=== PATIENT | male | born 1970 | race African-American/Black ===

== ENCOUNTER 2018-03-16 09:44 | Inpatient (IN) | payer OTHER ==
--- NOTE | 2018-03-16 10:36 | PDOC ---
History of Present Illness - General Chief Complaint: Edema Stated Complaint: PCP SENT FOR ADMIN Time Seen by Provider: 03/16/18 09:59 History Source: Patient Exam Limitations: No Limitations - History of Present Illness Initial Comments: 03/16/18 10:45 47 year old male presents the emergency room with complaints of 7 days of lower extremity edema mild generalized weakness, and sent here from Dr. Cantu's office for admission. Patient states history of diabetes, hypertension gastric sleeve 7 years ago, daily alcohol use, and liver disease. Patient was placed on Lasix by his primary care physician but since it did not improve patient was also recently seen by certified wellness program coordinator who did an echo and associated swelling with his liver disease. Timing/Duration: getting worse Severity: moderate Associated Symptoms: reports: weakness, other Past History - Travel Traveled outside of the country in the last 30 days: No - Past Medical History Allergies/Adverse Reactions: Allergies Allergy/AdvReac Type Severity Reaction Status Date / Time Penicillins Allergy Verified 03/16/18 09:46 Home Medications: Ambulatory Orders Enalapril Maleate [Vasotec] 40 mg PO DAILY 03/16/18 Furosemide [Lasix] 40 mg PO DAILY 03/16/18 COPD: No - Immunization History Immunization Up to Date: Yes - Suicide/Smoking/Psychosocial Hx Smoking History: Never smoked Information on smoking cessation initiated: No Hx Alcohol Use: No Drug/Substance Use Hx: No Substance Use Type: None Patient Lives Alone: No Lives with/in: spouse/SO Review of Systems - Review of Systems Able to Perform ROS?: Yes Constitutional: Yes: Weakness HEENTM: No: Symptoms Reported Respiratory: No: Symptoms reported Cardiac (ROS): Yes: Edema ABD/GI: No: Symptoms Reported : No: Symptoms Reported Musculoskeletal: No: Symptoms Reported Integumentary: No: Symptoms Reported Neurological: No: Symptoms reported Endocrine: No: Symptoms Reported Hematologic/Lymphatic: Yes: Anemia *Physical Exam - Vital Signs Last Vital Signs Temp Pulse Resp BP Pulse Ox 98.3 F 84 16 150/69 100 03/16/18 09:47 03/16/18 09:47 03/16/18 09:47 03/16/18 09:47 03/16/18 09:47 - Physical Exam General Appearance: Yes: Nourished, Appropriately Dressed. No: Apparent Distress HEENT: positive: Scleral Icterus (R), Scleral Icterus (L) Neck: positive: Supple Respiratory/Chest: positive: Lungs Clear, Normal Breath Sounds. negative: Respiratory Distress, Accessory Muscle Use Cardiovascular: positive: Regular Rhythm, Regular Rate. negative: Murmur Gastrointestinal/Abdominal: positive: Normal Bowel Sounds (muffled), Soft, Distended. negative: Guarding, Rebound, Tenderness, Hernia, Mass Extremity: positive: Normal Capillary Refill, Normal Range of Motion, Swelling ( 3+ pitting bilaterally from patellas to toes) Integumentary: positive: Normal Color, Warm, Moist Neurologic: positive: Normal Mood/Affect, Motor Strength 09/09 ED Treatment Course - LABORATORY CBC & Chemistry Diagram: 03/16/18 10:45 03/16/18 10:49 - RADIOLOGY Radiology Studies Ordered: Category Date Time Status CHEST X-RAY PORTABLE* [RAD] Stat Radiology 03/16/18 10:09 Ordered Medical Decision Making - Medical Decision Making 03/16/18 10:57 CC: BLE edema and mild weakness, daily etoh Exam: Noted icteric sclera and conjunctivas, # + pitting edema Plan: labs, coag, liver u/s, ua, cxr, ekg, 03/16/18 13:28 Laboratory Tests 03/16/18 03/16/18 03/16/18 10:45 10:49 10:49 WBC 7.3 Hgb 8.4 L Hct 24.6 L Plt Count 67 L MPV 11.7 H Absolute Neuts (auto) 5.2 PT with INR 17.20 H INR 1.45 H Sodium 141 Potassium 3.9 Chloride 108 H Carbon Dioxide 24 Anion Gap 10 BUN 11 Creatinine 1.2 Creat Clearance w eGFR > 60 Random Glucose 131 H Calcium 8.1 L Magnesium 1.9 Total Bilirubin 4.1 H AST 97 H ALT 48 Alkaline Phosphatase 256 H Total Protein 7.1 Albumin 2.2 L Lipase 317 Patient's ultrasound pending. Case discussed with Dr. Alberts admitting physician and states admit to [facility] and consult GI. 03/16/18 15:06 Ultrasound shows a significant hepatomegaly with the liver measuring 24.6 and sagittal length with fatty infiltration versus hepatocellular disease. Adequately distended gallbladder with diffuse thickening of its wall and suggestive edema. No gallstones identified. Clinically correlate and further evaluation is needed to rule out acalculous cholecystitis. *DC/Admit/Observation/Transfer Diagnosis at time of Disposition: Jaundice, Bilateral lower extremity edema - Discharge Dispostion Decision to Admit order: Yes - Referrals Referrals: Aman Cantu MD [Primary Care Provider] - - Patient Instructions - Post Discharge Activity
[2018-03-16 10:57] LABS: BASO % 0.5 % (0-2.0); EOS % 2.3 % (0-4.5); HEMATOCRIT 24.6 % (35.4-49); HEMOGLOBIN 8.4 GM/dL (11.7-16.9); LYMPH % 15.6 % (8-40); MCHC 34.3 g/dl (32.0-35.9); MEAN CELL VOLUME 101.9 fl (80-96); MEAN PLT VOLUME 11.7 fl (7.5-11.1); MONO % 9.8 % (3.8-10.2); NEUT % 71.8 % (42.8-82.8); PLATELET COUNT 67 K/MM3 (134-434); RBC 2.41 M/mm3 (4.00-5.60); RDW 14.5 % (11.9-15.9); WHITE BLOOD COUNT 7.3 K/mm3 (4.0-10.0)
[2018-03-16 11:25] LABS: INR 1.45 (0.83-1.09); PROTHROMBIN TIME (PATIENT) 17.2 SEC (9.7-13.0)
[2018-03-16 11:26] LABS: ALBUMIN 2.2 g/dl (3.4-5.0); ALK PHOS 256 U/L (45-117); ANION GAP 10 MMOL/L (8-16); BILIRUBIN,TOTAL 4.1 mg/dL (0.2-1); BLOOD UREA NITROGEN 11 mg/dL (7-18); CALCIUM 8.1 mg/dL (8.5-10.1); CHLORIDE 108 mmol/L (98-107); CO2 24 mmol/L (21-32); CREATININE 1.2 mg/dL (0.55-1.3); GLUCOSE,RANDOM 131 mg/dL (74-106); MAGNESIUM 1.9 mg/dL (1.8-2.4); POTASSIUM 3.9 mmol/L (3.5-5.1); SGOT/AST 97 U/L (15-37); SGPT/ALT 48 U/L (13-61); SODIUM 141 mmol/L (136-145); TOT PROT 7.1 g/dl (6.4-8.2)
[2018-03-16 13:21] LABS: LIPASE 317 U/L (73-393)
--- NOTE | 2018-03-16 13:38 | EKG ---
Test Reason : Blood Pressure : / mmHG Vent. Rate : 071 BPM Atrial Rate : 071 BPM P-R Int : 158 ms QRS Dur : 096 ms QT Int : 426 ms P-R-T Axes : 041 032 024 degrees QTc Int : 462 ms NORMAL SINUS RHYTHM NORMAL ECG WHEN COMPARED WITH ECG OF 01-FEB-2010 09:02, NO SIGNIFICANT CHANGE WAS FOUND Confirmed by RONNIE LUCIANO MD ([id number]) on 03/16/2018 1:38:19 PM Referred By: Confirmed By:RONNIE LUCIANO MD
[2018-03-16 16:39] LABS: URINE APPEARANCE CLEAR; URINE BILIRUBIN NEGATIVE (<2.0 mg/dL); URINE COLOR DKYELLOW; URINE GLUCOSE (UA) NEGATIVE (NEGATIVE); URINE KETONE NEGATIVE (NEGATIVE); URINE LEUK ESTERASE NEGATIVE (NEGATIVE); URINE NITRITE NEGATIVE (NEGATIVE); URINE PROTEIN NEGATIVE (NEGATIVE); URINE UROBILINOGEN 4.0 E.U/dl mg/dL (0.2-1.0)
[2018-03-16 17:05] VITALS: BMI 35.6
[2018-03-16] MEDS ORDERED: morphine CARPU-JECT 2 MG/1 ML DISP.SYRIN IVPUSH PRN (21:43)
--- NOTE | 2018-03-16 21:57 | CON.CARD ---
Consult Consult Specialty:: Cardiology for dr. Clements - History of Present Illness Chief Complaint: le edema History of Present Illness: 47 year old male presents the emergency room with complaints of 7 days of lower extremity edema mild generalized weakness, and sent here from Dr. Cantu's office for admission. Patient states history of diabetes, hypertension gastric sleeve 7 years ago, daily alcohol use, and liver disease. Patient was placed on Lasix by his primary care physician but since it did not improve patient was also recently seen by signal worker helper who did an echo and associated swelling with his liver disease. Timing/Duration: getting worse Severity: moderate Associated Symptoms: reports: weakness, other - History Source History Provided By: Patient, Medical Record - Past Medical History Cardio/Vascular: Yes: HTN Endocrine: Yes: Diabetes Mellitus - Alcohol/Substance Use Hx Alcohol Use: No - Smoking History Smoking history: Never smoked Home Medications - Allergies Allergies/Adverse Reactions: Allergies Allergy/AdvReac Type Severity Reaction Status Date / Time Penicillins Allergy Verified 03/16/18 09:46 - Home Medications Home Medications: Ambulatory Orders Enalapril Maleate [Vasotec] 40 mg PO DAILY 03/16/18 Furosemide [Lasix] 40 mg PO DAILY 03/16/18 Oxycodone HCl/Acetaminophen [Percocet 10-325 mg Tablet] 10 tab PO PRN 03/16/18 Review of Systems - Review of Systems Constitutional: reports: No Symptoms Eyes: reports: No Symptoms HENT: reports: No Symptoms Neck: reports: No Symptoms Cardiovascular: reports: Edema Respiratory: reports: No Symptoms Gastrointestinal: reports: No Symptoms Genitourinary: reports: No Symptoms Breasts: reports: No Symptoms Reported Musculoskeletal: reports: No Symptoms Integumentary: reports: No Symptoms Neurological: reports: No Symptoms Endocrine: reports: No Symptoms Hematology/Lymphatic: reports: No Symptoms Psychiatric: reports: No Symptoms Vital Signs: Vital Signs Temperature 98.7 F 03/16/18 21:26 Pulse Rate 77 03/16/18 21:26 Respiratory Rate 18 03/16/18 21:26 Blood Pressure 145/77 03/16/18 21:26 O2 Sat by Pulse Oximetry (%) 100 03/16/18 16:55 Constitutional: Yes: Well Nourished, No Distress, Calm Eyes: Yes: WNL, Conjunctiva Clear, EOM Intact HENT: Yes: WNL, Atraumatic, Normocephalic Neck: Yes: WNL, Supple, Trachea Midline Respiratory: Yes: WNL, Regular, CTA Bilaterally Gastrointestinal: Yes: WNL, Normal Bowel Sounds Renal/: Yes: WNL Cardiovascular: Yes: WNL, Regular Rate and Rhythm Musculoskeletal: Yes: WNL Extremities: Yes: WNL Edema: Yes Edema: LLE: 1+, RLE: 1+ Integumentary: Yes: WNL Neurological: Yes: WNL, Alert, Oriented ...Motor Strength: WNL Psychiatric: Yes: WNL, Alert, Oriented - Other Data Labs, Other Data: CBC, BMP 03/16/18 10:45 03/16/18 10:49 INR, PTT INR 1.45 (0.83-1.09) H 03/16/18 10:49 Laboratory Tests 03/16/18 03/16/18 03/16/18 10:45 10:49 10:49 WBC 7.3 RBC 2.41 L Hgb 8.4 L Hct 24.6 L MCV 101.9 H MCH 35.0 H MCHC 34.3 RDW 14.5 Plt Count 67 L MPV 11.7 H Absolute Neuts (auto) 5.2 Neutrophils % 71.8 Lymphocytes % 15.6 Monocytes % 9.8 Eosinophils % 2.3 Basophils % 0.5 Nucleated RBC % 0 PT with INR INR Sodium 141 Potassium 3.9 Chloride 108 H Carbon Dioxide 24 Anion Gap 10 BUN 11 Creatinine 1.2 Creat Clearance w eGFR > 60 Random Glucose 131 H Calcium 8.1 L Magnesium 1.9 Total Bilirubin 4.1 H AST 97 H ALT 48 Alkaline Phosphatase 256 H Total Protein 7.1 Albumin 2.2 L Lipase 317 Urine Color Urine Appearance Urine pH Ur Specific [place] Urine Protein Urine Glucose (UA) Urine Ketones Urine Blood Urine Nitrite Urine Bilirubin Urine Urobilinogen Ur Leukocyte Esterase Blood Type A POSITIVE Antibody Screen Negative 03/16/18 03/16/18 10:49 16:24 WBC RBC Hgb Hct MCV MCH MCHC RDW Plt Count MPV Absolute Neuts (auto) Neutrophils % Lymphocytes % Monocytes % Eosinophils % Basophils % Nucleated RBC % PT with INR 17.20 H INR 1.45 H Sodium Potassium Chloride Carbon Dioxide Anion Gap BUN Creatinine Creat Clearance w eGFR Random Glucose Calcium Magnesium Total Bilirubin AST ALT Alkaline Phosphatase Total Protein Albumin Lipase Urine Color Dkyellow Urine Appearance Clear Urine pH 7.0 Ur Specific [place] 1.016 Urine Protein Negative Urine Glucose (UA) Negative Urine Ketones Negative Urine Blood Negative Urine Nitrite Negative Urine Bilirubin Negative Urine Urobilinogen 4.0 e.u/dl Ur Leukocyte Esterase Negative Blood Type Antibody Screen Imaging - Results Chest X-ray: Image Reviewed (cm increased markings) EKG: Image Reviewed (sr wnl) Problem List - Problems (1) Bilateral lower extremity edema Code(s): R60.0 - LOCALIZED EDEMA (2) Jaundice Code(s): R17 - UNSPECIFIED JAUNDICE Assessment/Plan htn dm edema anemia elevated lfts ?cirhossis s/p gastric bypass surgery Plan bnp records from dr. Clements office - patient had cardiac w/u done as outp. GI eval cont present rx Coverage for dr. Clements
[2018-03-16] MEDS: MORPHINE SULFATE 2 MG/ML VIAL IVPUSH PRN (22:03)
--- NOTE | 2018-03-16 22:39 | HP ---
Admitting History and Physical - Smoking History Smoking history: Never smoked - Alcohol/Substance Use Hx Alcohol Use: No Home Medications - Allergies Allergies/Adverse Reactions: Allergies Allergy/AdvReac Type Severity Reaction Status Date / Time Penicillins Allergy Verified 03/16/18 09:46 - Home Medications Home Medications: Ambulatory Orders Enalapril Maleate [Vasotec] 40 mg PO DAILY 03/16/18 Furosemide [Lasix] 40 mg PO DAILY 03/16/18 Oxycodone HCl/Acetaminophen [Percocet 10-325 mg Tablet] 10 tab PO PRN 03/16/18 Physical Examination Vital Signs: Vital Signs Temperature 98.7 F 03/16/18 21:26 Pulse Rate 77 03/16/18 21:26 Respiratory Rate 18 03/16/18 21:26 Blood Pressure 145/77 03/16/18 21:26 O2 Sat by Pulse Oximetry (%) 100 03/16/18 16:55 Labs: CBC, BMP 03/16/18 10:45 03/16/18 10:49
--- NOTE | 2018-03-17 09:12 | PN ---
Progress Note, Physician History of Present Illness: 47 year old male presents the emergency room with complaints of 7 days of lower extremity edema mild generalized weakness, and sent here from Dr. Cantu's office for admission. Patient states history of diabetes, hypertension gastric sleeve 7 years ago, daily alcohol use, and liver disease. Patient was placed on Lasix by his primary care physician but since it did not improve patient was also recently seen by motorized squad lieutenant who did an echo and associated swelling with his liver disease. Timing/Duration: getting worse Severity: moderate Associated Symptoms: reports: weakness, other - Current Medication List Current Medications: Active Medications Enalapril Maleate (Vasotec -) 40 mg PO DAILY [facility] Furosemide (Lasix Injection -) 40 mg IVPUSH DAILY [facility] Morphine Sulfate (Morphine Sulfate) 2 mg IVPUSH Q6H PRN PRN Reason: pain Last Admin: 03/16/18 22:03 Dose: 2 mg - Objective Vital Signs: Vital Signs Temperature 98.2 F 03/17/18 06:00 Pulse Rate 74 03/17/18 06:00 Respiratory Rate 18 03/17/18 06:00 Blood Pressure 144/74 03/17/18 06:00 O2 Sat by Pulse Oximetry (%) 100 03/16/18 21:00 Eyes: Yes: WNL, Conjunctiva Clear, EOM Intact HENT: Yes: WNL, Atraumatic, Normocephalic Neck: Yes: WNL, Supple, Trachea Midline Cardiovascular: Yes: WNL, Regular Rate and Rhythm Respiratory: Yes: WNL, Regular, CTA Bilaterally Gastrointestinal: Yes: WNL, Normal Bowel Sounds Genitourinary: Yes: WNL Musculoskeletal: Yes: WNL Extremities: Yes: WNL Edema: Yes Integumentary: Yes: WNL Neurological: Yes: WNL, Alert, Oriented ...Motor Strength: WNL Psychiatric: Yes: WNL Labs: INR, PTT INR 1.45 (0.83-1.09) H 03/16/18 10:49 Problem List - Problems (1) Bilateral lower extremity edema Code(s): R60.0 - LOCALIZED EDEMA (2) Jaundice Code(s): R17 - UNSPECIFIED JAUNDICE Assessment/Plan htn dm edema anemia elevated lfts ?cirhossis s/p gastric bypass surgery Plan bnp records from dr. Clements office - patient had cardiac w/u done as outp. GI eval cont present rx Coverage for dr. Clements
[2018-03-17 09:13] LABS: BASO % 1.2 % (0-2.0); EOS % 2.2 % (0-4.5); HEMATOCRIT 25.3 % (35.4-49); HEMOGLOBIN 8.4 GM/dL (11.7-16.9); LYMPH % 21.4 % (8-40); MCH 33.5 pg (25.7-33.7); MCHC 33.1 g/dl (32.0-35.9); NEUT % 65.2 % (42.8-82.8); PLATELET COUNT 60 K/MM3 (134-434); RBC 2.51 M/mm3 (4.00-5.60); RDW 14.5 % (11.9-15.9); WHITE BLOOD COUNT 7.9 K/mm3 (4.0-10.0)
[2018-03-17] MEDS: FUROSEMIDE 40 MG/4 ML INJECTABLE VIAL IVPUSH SCH (09:32)
[2018-03-17] MEDS: ENALAPRIL MALEATE 10 MG TABLET (FP) PO SCH (09:34)
[2018-03-17 09:36] LABS: ALBUMIN 2.1 g/dl (3.4-5.0); ALK PHOS 236 U/L (45-117); ANION GAP 7 MMOL/L (8-16); BILIRUBIN,TOTAL 4.6 mg/dL (0.2-1); BLOOD UREA NITROGEN 10 mg/dL (7-18); CHLORIDE 108 mmol/L (98-107); CO2 25 mmol/L (21-32); CREATININE 1.1 mg/dL (0.55-1.3); GLUCOSE,RANDOM 90 mg/dL (74-106); POTASSIUM 3.8 mmol/L (3.5-5.1); SGOT/AST 83 U/L (15-37); SGPT/ALT 41 U/L (13-61); SODIUM 139 mmol/L (136-145); TOT PROT 6.8 g/dl (6.4-8.2)
[2018-03-17 10:51] LABS: N-TERMINAL BNP 682.8 pg/ml (5-125)
[2018-03-17] MEDS: MORPHINE SULFATE 2 MG/ML VIAL IVPUSH PRN ×2 (11:03→20:55)
--- NOTE | 2018-03-17 12:27 | CON.GI ---
Consult Consult Specialty:: GI: Dr. Coker covering for Dr. Sen Referred by:: Dr. Alberts Reason for Consultation:: Jaundice - History of Present Illness Chief Complaint: My legs were swollen and my eyes have been yellow for the last couple of months History of Present Illness: 47M admitted for evaluation of jaundice x 2 months and LE edema. He was seen by his PMD Dr. Cantu. He had blood work done and given abnormal blood work and lower extremity edema was advised to go to the ER. He denies abdominal pain. He alludes to drinking 5-6 mixed drinks per day and has been doing this for upwards of 8 years. He explains that he was seen in July at [facility] where he underwent surgery for SBO. By description it was secondary to adhesions. During his hospitalization he was seen by the liver team due to "abnormal liver tests". he started following with one of the hepatologists there (by description, Dr. Abimael Goss, Medical Transplant Operating System Programmer). Mr. Hurtado tells me that he was told of inflammation of the liver, however he failed to continue follow-up there. There is no family history of liver disease, he denies any recent travel, any change in bowel habits, IVDA/DU, blood transfusions or known exposure to viral hepatitides. He denies any OTC supplements. he describes taking percocet 1 pill twice per day on a regular basis. He denies any weight loss, however states that his appetite has been diminished as of late. He has never had a colonoscopy. There is no family history of colorectal cancer or other GI malignancy. He explains to me that he was supposed to be following up with Dr. Silverio for evaluation of his liver and to discuss colonoscopy. - History Source History Provided By: Patient, Medical Record - Past Medical History Cardio/Vascular: Yes: HTN Pulmonary: Yes: Asthma Endocrine: Yes: Diabetes Mellitus (States diet controlled: off insulin and oral therapy x 1 year per patient) - Past Surgical History Past Surgical History: Yes: Bariatric Surgery (gastric sleeve (2007 or 2008)) - Alcohol/Substance Use Hx Alcohol Use: Yes (daily as described above) History of Substance Use: reports: None - Smoking History Smoking history: Never smoked - Social History Usual Living Arrangement: With Spouse ADL: Independent Occupation: Unemployed Place of : [facility] History of Recent Travel: No Home Medications - Allergies Allergies/Adverse Reactions: Allergies Allergy/AdvReac Type Severity Reaction Status Date / Time Penicillins Allergy Verified 03/16/18 09:46 - Home Medications Home Medications: Ambulatory Orders Enalapril Maleate [Vasotec] 40 mg PO DAILY 03/16/18 Furosemide [Lasix] 40 mg PO DAILY 03/16/18 Oxycodone HCl/Acetaminophen [Percocet 10-325 mg Tablet] 10 tab PO PRN 03/16/18 Family Disease History - Family Disease History Family Disease History: Other: Father (: 74: pancreatic ca), Mother (: 65: [place]), Brother (20: full and half), Sister (16: full and half), Son (3, healthy), Daughter (3, healthy) Other Family History: No family history of colorectal cancer or other GI malignancy. No family history of liver disease Review of Systems - Review of Systems Constitutional: reports: Loss of Appetite Cardiovascular: reports: Edema (B/L LE edema). denies: Chest Pain Respiratory: denies: SOB Gastrointestinal: reports: Bloating. denies: Abdominal Pain, Diarrhea, Dysphagia, Melena, Nausea, Rectal Bleeding, Vomiting, Vomiting Blood Physical Exam-GI Vital Signs: Vital Signs Temperature 98.1 F 03/17/18 10:00 Pulse Rate 75 03/17/18 10:00 Respiratory Rate 18 03/17/18 10:00 Blood Pressure 148/77 03/17/18 10:00 O2 Sat by Pulse Oximetry (%) 100 03/16/18 21:00 Constitutional: Yes: Calm Eyes: Yes: Sclera Icterus Cardiovascular: Yes: Regular Rate and Rhythm. No: Murmur Respiratory: Yes: CTA Bilaterally Gastrointestinal Inspection: Yes: Scars (long midline vertical surgical scar). No: Distention ...Auscultate: Yes: Normoactive Bowel Sounds ...Palpate: Yes: Hepatomegaly. No: Splenomegaly, Tenderness ...Percussion: No: Tympanitic ...Rectal Exam: Yes: Other (No external lesions, no masses, light brown stool in rectal vault, guaiac negative. unable to clearly palpate prostate) Edema: Yes (pitting) Edema: LLE: 1+, RLE: 1+ Neurological: Yes: Alert, Oriented. No: Asterix[employer] Labs: CBC, BMP 03/17/18 08:11 03/17/18 08:11 INR, PTT INR 1.45 (0.83-1.09) H 03/16/18 10:49 Hepatic Panel Total Bilirubin 4.6 mg/dL (0.2-1) H 03/17/18 08:11 AST 83 U/L (15-37) H 03/17/18 08:11 ALT 41 U/L (13-61) 03/17/18 08:11 Alkaline Phosphatase 236 U/L (45-117) H 03/17/18 08:11 Albumin 2.1 g/dl (3.4-5.0) L 03/17/18 08:11 MELD: 17 Hepatitis Discriminant Function: 28 Imaging - Results Cat Scan: Report Reviewed (hepatomegaly, irregular liver contour, fatty infiltration, development of splenomegaly, dilated IVC, no obvious dilatation biliary tract), Image Reviewed Ultrasound: Report Reviewed (Fatty liver, hepatomegaly, normal flow in main portal vein, no gallstones, no dilated biliary ducts, thickened gallbladder wall ) Problem List - Problems (1) Alcoholic hepatitis Assessment/Plan: Suspect that Mr. 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 I discussed my concern with Mr. Hurtado. I explained that he needs to completely abstain from alcohol from this point forward in order to assess if there will be improvement in his liver function. We discussed the risks of cirrhosis/alcoholic hepatitis like but not limited to bleeding, liver cancer, hepatic encephaloppathy, infection all of which could be potentially life threatening. i explained that liver cirrhosis can also lead to the need for liver transplantation and that he would need to maintain sobriety in order to be considered a candidate. I explained that he continues to drink alcohol, it would likely expedite further liver decompensation and his . For now I advise: Triple phase MRI of the abdomen and pelvis with and without contrast / MRCP to further assess hepatic parencyma, pancreas and biliary tract Hepatitis serologies ordered for AM Will need HCC screening q 6 months with hepatic US. Explained to patient Will need EGD to screen for varices Will need continued outpatient follow-up. I discussed with the patient and advised arranging follow-up with Dr. Abimael Goss, transplant hepatiologist at [facility]. I also discussed the case with Dr. Silverio, who will be following the patient from this point. No need for corticosteroid therapy at this point ? need for continued opiate analgesia. was on percocet at home for ? and receiving morphine here. Complete alcohol cessation Daily weights, I'S and O's. Diuresis per PMD. sodium controlled diet. No need for HIDA. The gallbladder edema is likey reactive from primary hepatic inflammatory process and reflectin hypoalbuminemic state. No clinical evidence of acute cholecystitis and the painless jaundice has been occurring for 2 weeks. Monitor LFTs Code(s): K70.10 - ALCOHOLIC HEPATITIS WITHOUT ASCITES
--- NOTE | 2018-03-17 16:28 | PN ---
Progress Note, Physician - Current Medication List Current Medications: Active Medications Enalapril Maleate (Vasotec -) 40 mg PO DAILY [facility] Last Admin: 03/17/18 09:34 Dose: 40 mg Furosemide (Lasix Injection -) 40 mg IVPUSH DAILY [facility] Last Admin: 03/17/18 09:32 Dose: 40 mg Morphine Sulfate (Morphine Sulfate) 2 mg IVPUSH Q6H PRN PRN Reason: pain Last Admin: 03/17/18 11:03 Dose: 2 mg - Objective Vital Signs: Vital Signs Temperature 98.3 F 03/17/18 14:16 Pulse Rate 66 03/17/18 14:16 Respiratory Rate 20 03/17/18 14:16 Blood Pressure 145/78 03/17/18 14:16 O2 Sat by Pulse Oximetry (%) 100 03/16/18 21:00 Labs: CBC, BMP 03/17/18 08:11 03/17/18 08:11 INR, PTT INR 1.45 (0.83-1.09) H 03/16/18 10:49
[2018-03-17] MEDS ORDERED: LORazepam 2 MG/ML SDV VIAL IVPUSH ONE (17:15)
[2018-03-18] MEDS: MORPHINE SULFATE 2 MG/ML VIAL IVPUSH PRN ×3 (06:07→18:20)
[2018-03-18 07:44] LABS: BASO % 0.7 % (0-2.0); EOS % 2.1 % (0-4.5); HEMATOCRIT 26.8 % (35.4-49); LYMPH % 22.2 % (8-40); MCH 33.8 pg (25.7-33.7); MCHC 33.4 g/dl (32.0-35.9); MEAN PLT VOLUME 10.9 fl (7.5-11.1); MONO % 10.3 % (3.8-10.2); NEUT % 64.7 % (42.8-82.8); PLATELET COUNT 58 K/MM3 (134-434); RBC 2.65 M/mm3 (4.00-5.60); WHITE BLOOD COUNT 8.1 K/mm3 (4.0-10.0)
[2018-03-18 08:31] LABS: ALBUMIN 2.1 g/dl (3.4-5.0); ALK PHOS 228 U/L (45-117); ANION GAP 9 MMOL/L (8-16); BILIRUBIN,TOTAL 4.6 mg/dL (0.2-1); BLOOD UREA NITROGEN 12 mg/dL (7-18); CALCIUM 8.1 mg/dL (8.5-10.1); CHLORIDE 105 mmol/L (98-107); CO2 26 mmol/L (21-32); CREATININE 1.1 mg/dL (0.55-1.3); GLUCOSE,RANDOM 78 mg/dL (74-106); POTASSIUM 3.6 mmol/L (3.5-5.1); SGOT/AST 72 U/L (15-37); SGPT/ALT 35 U/L (13-61); SODIUM 140 mmol/L (136-145); TOT PROT 6.7 g/dl (6.4-8.2)
--- NOTE | 2018-03-18 09:01 | PN ---
Progress Note, Physician History of Present Illness: 47 year old male presents the emergency room with complaints of 7 days of lower extremity edema mild generalized weakness, and sent here from Dr. Cantu's office for admission. Patient states history of diabetes, hypertension gastric sleeve 7 years ago, daily alcohol use, and liver disease. Patient was placed on Lasix by his primary care physician but since it did not improve patient was also recently seen by vice president of finance who did an echo and associated swelling with his liver disease. Timing/Duration: getting worse Severity: moderate Associated Symptoms: reports: weakness, other - Current Medication List Current Medications: Active Medications Enalapril Maleate (Vasotec -) 40 mg PO DAILY [facility] Last Admin: 03/17/18 09:34 Dose: 40 mg Furosemide (Lasix Injection -) 40 mg IVPUSH DAILY [facility] Last Admin: 03/17/18 09:32 Dose: 40 mg Morphine Sulfate (Morphine Sulfate) 2 mg IVPUSH Q6H PRN PRN Reason: pain Last Admin: 03/18/18 06:07 Dose: 2 mg - Objective Vital Signs: Vital Signs Temperature 97.8 F 03/18/18 06:00 Pulse Rate 70 03/18/18 06:00 Respiratory Rate 18 03/18/18 06:00 Blood Pressure 140/74 03/18/18 06:00 O2 Sat by Pulse Oximetry (%) 99 03/17/18 21:00 Eyes: Yes: WNL, Conjunctiva Clear, EOM Intact HENT: Yes: WNL, Atraumatic, Normocephalic Neck: Yes: WNL, Supple, Trachea Midline Cardiovascular: Yes: WNL, Regular Rate and Rhythm Respiratory: Yes: WNL, Regular, CTA Bilaterally Gastrointestinal: Yes: WNL, Normal Bowel Sounds Genitourinary: Yes: WNL Musculoskeletal: Yes: WNL Extremities: Yes: WNL Edema: Yes Edema: LLE: 1+, RLE: 1+ Integumentary: Yes: WNL Neurological: Yes: WNL, Alert, Oriented ...Motor Strength: WNL Psychiatric: Yes: WNL Labs: CBC, BMP 03/18/18 06:55 03/18/18 06:55 INR, PTT INR 1.45 (0.83-1.09) H 03/16/18 10:49 Problem List - Problems (1) Bilateral lower extremity edema Code(s): R60.0 - LOCALIZED EDEMA (2) Jaundice Code(s): R17 - UNSPECIFIED JAUNDICE Assessment/Plan ? CHF BNP 683 edema, no sob htn dm anemia elevated lfts ?cirhossis s/p gastric bypass surgery Plan records from dr. Clements office - patient had cardiac w/u done as outp. GI eval cont present rx cont Lasix Coverage for dr. Clements
[2018-03-18] MEDS: ENALAPRIL MALEATE 10 MG TABLET (FP) PO SCH (09:47)
[2018-03-18] MEDS: FUROSEMIDE 40 MG/4 ML INJECTABLE VIAL IVPUSH SCH (09:47)
--- NOTE | 2018-03-18 20:03 | PN ---
GI Progress Note Subjective: patient continue to drink alcohol until admission. Abdominal ultrasound revealed hepatomegaly, no ascitis. - Objective Vital Signs: Vital Signs Temperature 98.1 F 03/18/18 18:00 Pulse Rate 66 03/18/18 18:00 Respiratory Rate 20 03/18/18 18:00 Blood Pressure 133/78 03/18/18 18:00 O2 Sat by Pulse Oximetry (%) 96 03/18/18 09:00 Constitutional: No Distress Eyes: Yes: Sclera Icterus HENT: Yes: Atraumatic Neck: Yes: Supple Cardiovascular: Yes: Regular Rate and Rhythm Respiratory: Yes: CTA Bilaterally ...Palpate: Yes: Hepatomegaly (the left 6 finger breaths in the epigastric area and right lobe are large), Soft. No: Firm/Rigid, Guarding, Pulsatile Mass, Splenomegaly, Tenderness, Epigastium Labs: CBC, BMP 03/18/18 06:55 03/18/18 06:55 INR, PTT INR 1.45 (0.83-1.09) H 03/16/18 10:49 Problem List - Problems (1) Alcoholic cirrhosis of liver Assessment/Plan: [place] B R>abstain from alcohol use Thiamine Folic acid EGD as an outpatient r/o varices abdominal ultrasound every 6 mos to screen for Hepatoma AFP every 4 mos made aware to follow up patients was present and was made aware of medical plan further liver work up as an outpatient Code(s): K70.30 - ALCOHOLIC CIRRHOSIS OF LIVER WITHOUT ASCITES
--- NOTE | 2018-03-18 21:02 | PN ---
Progress Note, Physician History of Present Illness: Pt complains of generalized pain ese in lower back - Current Medication List Current Medications: Active Medications Enalapril Maleate (Vasotec -) 40 mg PO DAILY [facility] Last Admin: 03/18/18 09:47 Dose: 40 mg Furosemide (Lasix Injection -) 40 mg IVPUSH DAILY [facility] Last Admin: 03/18/18 09:47 Dose: 40 mg Morphine Sulfate (Morphine Sulfate) 1 mg IVPUSH Q6H PRN PRN Reason: PAIN LEVEL 6-10 Last Admin: 03/18/18 18:20 Dose: 1 mg - Objective Vital Signs: Vital Signs Temperature 98.3 F 03/18/18 20:38 Pulse Rate 68 03/18/18 20:38 Respiratory Rate 20 03/18/18 20:38 Blood Pressure 148/78 03/18/18 20:38 O2 Sat by Pulse Oximetry (%) 96 03/18/18 09:00 Constitutional: Yes: Obese Neck: Yes: WNL, Supple Cardiovascular: Yes: WNL, Regular Rate and Rhythm Respiratory: Yes: WNL, Regular, CTA Bilaterally Gastrointestinal: Yes: Normal Bowel Sounds, Abdomen, Obese, Hepatomegaly Edema: LLE: 1+, RLE: 1+ Labs: CBC, BMP 03/18/18 06:55 03/18/18 06:55 INR, PTT INR 1.45 (0.83-1.09) H 03/16/18 10:49 Problem List - Problems (1) Alcoholic hepatitis Assessment/Plan: Long d/w pt about ETOH cessation Cont to monitor LFT's Code(s): K70.10 - ALCOHOLIC HEPATITIS WITHOUT ASCITES (2) Cirrhosis Assessment/Plan: Will await GI(Dr Silverio) recommendations MRI abd showed ascites/cirrhosis/splenomegaly/mesenteric edema/gallbladder wall thickening Will get surgical consult As per GI no need for HIDA scan Code(s): K74.60 - UNSPECIFIED CIRRHOSIS OF LIVER (3) Bilateral lower extremity edema Assessment/Plan: Cont IV lasix Monitor electrolytes Code(s): R60.0 - LOCALIZED EDEMA (4) HTN (hypertension) Assessment/Plan: Cont enalapril Code(s): I10 - ESSENTIAL (PRIMARY) HYPERTENSION (5) Anemia Assessment/Plan: Due to liver dz Monitor H/H Code(s): D64.9 - ANEMIA, UNSPECIFIED (6) Thrombocytopenia Assessment/Plan: Due to cirrhosis Heme consult Code(s): D69.6 - THROMBOCYTOPENIA, UNSPECIFIED (7) Jaundice Code(s): R17 - UNSPECIFIED JAUNDICE
[2018-03-19] MEDS: MORPHINE SULFATE 2 MG/ML VIAL IVPUSH PRN ×3 (00:26→16:52)
[2018-03-19 06:53] LABS: BASO % 0.7 % (0-2.0); EOS % 2.5 % (0-4.5); HEMATOCRIT 26.3 % (35.4-49); HEMOGLOBIN 8.8 GM/dL (11.7-16.9); LYMPH % 26.7 % (8-40); MCH 33.8 pg (25.7-33.7); MCHC 33.6 g/dl (32.0-35.9); MEAN CELL VOLUME 100.6 fl (80-96); MEAN PLT VOLUME 10.7 fl (7.5-11.1); MONO % 9.2 % (3.8-10.2); NEUT % 60.9 % (42.8-82.8); PLATELET COUNT 62 K/MM3 (134-434); RBC 2.62 M/mm3 (4.00-5.60); RDW 14.3 % (11.9-15.9); WHITE BLOOD COUNT 8.1 K/mm3 (4.0-10.0)
[2018-03-19 07:10] LABS: ALK PHOS 207 U/L (45-117); ANION GAP 7 MMOL/L (8-16); BILIRUBIN,TOTAL 4.5 mg/dL (0.2-1); BLOOD UREA NITROGEN 12 mg/dL (7-18); CALCIUM 7.5 mg/dL (8.5-10.1); CHLORIDE 106 mmol/L (98-107); CO2 27 mmol/L (21-32); CREATININE 0.9 mg/dL (0.55-1.3); GLUCOSE,RANDOM 74 mg/dL (74-106); POTASSIUM 3.6 mmol/L (3.5-5.1); SGOT/AST 60 U/L (15-37); SGPT/ALT 32 U/L (13-61); SODIUM 140 mmol/L (136-145); TOT PROT 6.5 g/dl (6.4-8.2)
--- NOTE | 2018-03-19 09:06 | PN ---
Progress Note, Physician Chief Complaint: Alcoholic cirrhosis confirmed on imaging - Current Medication List Current Medications: Active Medications Enalapril Maleate (Vasotec -) 40 mg PO DAILY [facility] Last Admin: 03/18/18 09:47 Dose: 40 mg Folic Acid (Folic Acid -) 1 mg PO DAILY [facility] Furosemide (Lasix Injection -) 40 mg IVPUSH DAILY [facility] Last Admin: 03/18/18 09:47 Dose: 40 mg Morphine Sulfate (Morphine Sulfate) 1 mg IVPUSH Q6H PRN PRN Reason: PAIN LEVEL 6-10 Last Admin: 03/19/18 06:32 Dose: 1 mg Thiamine HCl (Vitamin B1 -) 100 mg PO DAILY [facility] - Objective Vital Signs: Vital Signs Temperature 98.3 F 03/19/18 06:11 Pulse Rate 70 03/19/18 06:11 Respiratory Rate 20 03/19/18 06:11 Blood Pressure 156/92 03/19/18 06:11 O2 Sat by Pulse Oximetry (%) 96 03/18/18 21:00 Constitutional: Yes: No Distress, Calm Cardiovascular: Yes: Regular Rate and Rhythm Respiratory: Yes: CTA Bilaterally Gastrointestinal: Yes: Soft (+ Ascites) Edema: Yes Edema: LLE: 1+ (improved), RLE: 1+ (improved) Neurological: Yes: Alert, Oriented ...Motor Strength: WNL Labs: CBC, BMP 03/19/18 06:30 03/19/18 06:30 INR, PTT INR 1.45 (0.83-1.09) H 03/16/18 10:49 Laboratory Tests 03/19/18 03/19/18 06:30 06:30 WBC 8.1 Hgb 8.8 L Hct 26.3 L Plt Count 62 L Sodium 140 Potassium 3.6 BUN 12 Creatinine 0.9 Total Bilirubin 4.5 H AST 60 H Alkaline Phosphatase 207 H Albumin 2.0 L Assessment/Plan Assessment/Plan IMP: Progressive ascites, LE edema, hypoalbuminemia secondary to hepatic cirrhosis likely due to chronic ETOH REC: 1. ETOH cessation 2. F/u GI 3. Thus far has responded to IV Lasix with significant improvement LE from last week Consider Aldactone. 4. Recent office echo with normal LVEF and no sig valve disease.
[2018-03-19] MEDS: ENALAPRIL MALEATE 10 MG TABLET (FP) PO SCH (10:07)
[2018-03-19] MEDS: THIAMINE HCL 100 MG TABLET (FP) PO SCH (10:08)
[2018-03-19] MEDS: FOLIC ACID 1 MG TABLET (FP) PO SCH (10:08)
[2018-03-19] MEDS: FUROSEMIDE 40 MG/4 ML INJECTABLE VIAL IVPUSH SCH (10:09)
--- NOTE | 2018-03-19 15:18 | CONSULT ---
Consult Consult Specialty:: Heme/Onc Referred by:: Dr. Alberts Reason for Consultation:: Thrombocytopenia - History of Present Illness Chief Complaint: Yellow eye History of Present Illness: 47M wityh history of DM HTN and alcoholic liver cirrohsis presented to the ER with yellowing of the eyes and swelling of his legs. Patient presents at the direction of his PMD due to lab abnormalities and worsening medical condition. Patient was seen by Dr. Goss at [facility] and patient never followed up. Hematology consulted due to thrombocytopenia. Patient denies bleeding or history of bleeding or clotting disorders in his family. Denies history of cancer. Patient currently denies nausea vomiting fever chills chest pain or SOB. History taken with at bedside - History Source History Provided By: Patient, Significant Other, Medical Record Limitations to Obtaining History: Clinical Condition - Past Medical History Cardio/Vascular: Yes: HTN Pulmonary: Yes: Asthma Endocrine: Yes: Diabetes Mellitus (States diet controlled: off insulin and oral therapy x 1 year per patient) - Past Surgical History Past Surgical History: Yes: Bariatric Surgery (gastric sleeve (2007 or 2008)) Additional Surgical History: Ex-lap lysis of adhesions - Alcohol/Substance Use Hx Alcohol Use: Yes (daily as described above) History of Substance Use: reports: None - Smoking History Smoking history: Never smoked - Social History Usual Living Arrangement: With Spouse ADL: Independent Occupation: Unemployed History of Recent Travel: No Home Medications - Allergies Allergies/Adverse Reactions: Allergies Allergy/AdvReac Type Severity Reaction Status Date / Time Penicillins Allergy Verified 03/16/18 09:46 - Home Medications Home Medications: Ambulatory Orders Enalapril Maleate [Vasotec] 40 mg PO DAILY 03/16/18 Biotin 10,000 mcg PO BID 03/18/18 Cyclobenzaprine HCl [Flexeril 10 mg] 10 mg PO DAILY 03/18/18 Ferrous Sulfate 325 mg PO BID 03/18/18 Losartan/Hydrochlorothiazide [Losartan-Hctz 50-12.5 mg Tab] 1 each PO DAILY 03/25 Meloxicam [Mobic] 15 mg PO DAILY 03/18/18 Family Disease History - Family Disease History Family Disease History: Other: Father (: 74: pancreatic ca), Mother (: 65: [place]), Brother (20: full and half), Sister (16: full and half), Son (3, healthy), Daughter (3, healthy) Other Family History: No family history of colorectal cancer or other GI malignancy. No family history of liver disease Review of Systems - Review of Systems Constitutional: reports: Malaise Eyes: reports: Other (yellowing of eyes) HENT: reports: No Symptoms Neck: reports: No Symptoms Cardiovascular: reports: Edema Respiratory: reports: No Symptoms Gastrointestinal: reports: Bloating. denies: Dysphagia Musculoskeletal: reports: No Symptoms Hematology/Lymphatic: reports: Other (varicose veing of lower extremities) Physical Exam Vital Signs: Vital Signs Temperature 97.7 F 03/19/18 10:00 Pulse Rate 65 03/19/18 10:00 Respiratory Rate 18 03/19/18 10:00 Blood Pressure 138/71 03/19/18 10:00 O2 Sat by Pulse Oximetry (%) 96 03/18/18 21:00 Constitutional: Yes: No Distress Eyes: Yes: EOM Intact, PERRL, Sclera Icterus HENT: Yes: Atraumatic Neck: Yes: Supple. No: Lymphadenopathy Cardiovascular: Yes: Regular Rate and Rhythm, S1, S2. No: Murmur Respiratory: Yes: CTA Bilaterally Gastrointestinal: Yes: Soft, Hepatomegaly Edema: Yes (trace lower extremity ) Neurological: Yes: Alert, Oriented Psychiatric: Yes: Alert, Oriented Labs: CBC, BMP 03/19/18 06:30 03/19/18 06:30 Imaging - Results Chest X-ray: Report Reviewed, Image Reviewed Cat Scan: Report Reviewed, Image Reviewed Ultrasound: Report Reviewed MRI: Report Reviewed, Image Reviewed Assessment/Plan 47M with history of HTN DM presents with lower extremity edema and scleral icterus sent from PMD office for treatment of alcoholic liver cirrhosis Problem List: Alcoholic liver cirrhosis alcoholic hepatitis DM HTN Iron deficiency anemia-on iron as outpatient possible Megaloblastic anemia-elevated MCV despite iron deficiency history thrombocytopenia Plan: Thrombocytopenia is likely secondary to cirrhosis patient encouraged to follow up with his PMD and GI to continue plans for outpatient management. agrees patient needs to follow up agrees he must stop drinking so his liver can improve and his platelets can recover. No signs or symptoms of bleeding Thank for for this consultative opportunity all questions answered
--- NOTE | 2018-03-19 18:43 | PN ---
Progress Note, Physician History of Present Illness: No new complaints - Current Medication List Current Medications: Active Medications Enalapril Maleate (Vasotec -) 40 mg PO DAILY [facility] Last Admin: 03/19/18 10:07 Dose: 40 mg Folic Acid (Folic Acid -) 1 mg PO DAILY [facility] Last Admin: 03/19/18 10:08 Dose: 1 mg Furosemide (Lasix Injection -) 40 mg IVPUSH DAILY [facility] Last Admin: 03/19/18 10:09 Dose: 40 mg Morphine Sulfate (Morphine Sulfate) 1 mg IVPUSH Q6H PRN PRN Reason: PAIN LEVEL 6-10 Last Admin: 03/19/18 16:52 Dose: 1 mg Thiamine HCl (Vitamin B1 -) 100 mg PO DAILY [facility] Last Admin: 03/19/18 10:08 Dose: 100 mg - Objective Vital Signs: Vital Signs Temperature 98.7 F 03/19/18 14:38 Pulse Rate 74 03/19/18 14:38 Respiratory Rate 18 03/19/18 14:38 Blood Pressure 115/69 03/19/18 14:38 O2 Sat by Pulse Oximetry (%) 96 03/19/18 09:00 Eyes: Yes: Sclera Icterus Neck: Yes: WNL, Supple Cardiovascular: Yes: WNL, Regular Rate and Rhythm Respiratory: Yes: WNL, Regular, CTA Bilaterally Gastrointestinal: Yes: WNL, Normal Bowel Sounds, Soft Edema: LLE: Trace, RLE: Trace Labs: CBC, BMP 03/19/18 06:30 03/19/18 06:30 INR, PTT INR 1.45 (0.83-1.09) H 03/16/18 10:49 Problem List - Problems (1) Alcoholic hepatitis Assessment/Plan: Long d/w pt about ETOH cessation Cont to monitor LFT's DC planning for am Explained to pt need for f/u w/ GI as outpt Code(s): K70.10 - ALCOHOLIC HEPATITIS WITHOUT ASCITES (2) Cirrhosis Assessment/Plan: MRI abd showed ascites/cirrhosis/splenomegaly/mesenteric edema/gallbladder wall thickening Code(s): K74.60 - UNSPECIFIED CIRRHOSIS OF LIVER (3) Bilateral lower extremity edema Assessment/Plan: Cont IV lasix Monitor electrolytes Code(s): R60.0 - LOCALIZED EDEMA (4) HTN (hypertension) Code(s): I10 - ESSENTIAL (PRIMARY) HYPERTENSION (5) Anemia Code(s): D64.9 - ANEMIA, UNSPECIFIED (6) Thrombocytopenia Code(s): D69.6 - THROMBOCYTOPENIA, UNSPECIFIED (7) Jaundice Code(s): R17 - UNSPECIFIED JAUNDICE
--- NOTE | 2018-03-19 22:02 | CONSULT ---
Consult - text type - Consultation Consultation Note: Patient seen and examined Full consult to follow 47M with history of HTN DM presents with lower extremity edema and scleral icterus s Alcoholic liver cirrhosis alcoholic hepatitis DM HTN Iron deficiency anemia-on iron as outpatient possible Megaloblastic anemia-elevated MCV despite iron deficiency history thrombocytopenia Plan: Thrombocytopenia is likely secondary to cirrhosis will monitor will need transfusion prior to procedures/ if bleeding
--- NOTE | 2018-03-20 09:34 | PN ---
Progress Note, Physician Chief Complaint: seen examined - Current Medication List Current Medications: Active Medications Enalapril Maleate (Vasotec -) 40 mg PO DAILY [facility] Last Admin: 03/19/18 10:07 Dose: 40 mg Folic Acid (Folic Acid -) 1 mg PO DAILY [facility] Last Admin: 03/19/18 10:08 Dose: 1 mg Furosemide (Lasix Injection -) 40 mg IVPUSH DAILY [facility] Last Admin: 03/19/18 10:09 Dose: 40 mg Morphine Sulfate (Morphine Sulfate) 1 mg IVPUSH Q6H PRN PRN Reason: PAIN LEVEL 6-10 Last Admin: 03/19/18 16:52 Dose: 1 mg Thiamine HCl (Vitamin B1 -) 100 mg PO DAILY [facility] Last Admin: 03/19/18 10:08 Dose: 100 mg - Objective Vital Signs: Vital Signs Temperature 97.9 F 03/20/18 06:00 Pulse Rate 61 03/20/18 06:00 Respiratory Rate 18 03/20/18 06:00 Blood Pressure 137/77 03/20/18 06:00 O2 Sat by Pulse Oximetry (%) 96 03/19/18 21:00 Constitutional: Yes: No Distress Cardiovascular: Yes: Regular Rate and Rhythm Respiratory: Yes: Other (decreased breath sounds bases) Gastrointestinal: Yes: Soft (+ Ascites, nontender) Edema: Yes Edema: LLE: 1+, RLE: 1+ Neurological: Yes: Alert, Oriented ...Motor Strength: WNL Labs: CBC, BMP 03/19/18 06:30 03/19/18 06:30 INR, PTT INR 1.45 (0.83-1.09) H 03/16/18 10:49 Laboratory Tests 03/19/18 03/19/18 06:30 06:30 WBC 8.1 Hgb 8.8 L Hct 26.3 L Plt Count 62 L Sodium 140 Potassium 3.6 BUN 12 Creatinine 0.9 AST 60 H ALT 32 Alkaline Phosphatase 207 H Assessment/Plan IMP: Progressive ascites, LE edema, hypoalbuminemia secondary to hepatic cirrhosis likely due to chronic ETOH REC: 1. ETOH cessation 2. F/u GI 3. Thus far has responded to IV Lasix with significant improvement LE from last week Consider Aldactone. 4. Recent office echo with normal LVEF and no sig valve disease.
[2018-03-20 10:29] VITALS: BP 152/73; PULSE 74; TEMP 98.5
[2018-03-20] MEDS: THIAMINE HCL 100 MG TABLET (FP) PO SCH (10:30)
[2018-03-20] MEDS: FOLIC ACID 1 MG TABLET (FP) PO SCH (10:30)
[2018-03-20] MEDS: ENALAPRIL MALEATE 10 MG TABLET (FP) PO SCH (10:30)
[2018-03-20] MEDS: FUROSEMIDE 40 MG/4 ML INJECTABLE VIAL IVPUSH SCH (10:30)
[2018-03-21 00:08] LABS: HBSAG SCREEN Negative (Negative); HEP A AB, IGM Negative (Negative); HEP B CORE AB, TOT Negative (Negative)
== END 2018-03-20 14:04 | disposition home or self-care (01) | DRG 280 ==
LOC: JER 09:44 → JERBED 13:30 → J5S 16:25
PROVIDERS: ADMIT Internal Medicine; ATTEND Internal Medicine
DX: K70.11 Alcoholic hepatitis with ascites (principal); K70.31 Alcoholic cirrhosis of liver with ascites; K76.0 Fatty (change of) liver, not elsewhere classified; D69.59 Other secondary thrombocytopenia; E88.09 Other disorders of plasma-protein metabolism, not elsewhere classified; D53.1 Other megaloblastic anemias, not elsewhere classified; D69.6 Thrombocytopenia, unspecified; I10 Essential (primary) hypertension; E11.9 Type 2 diabetes mellitus without complications; Z98.84 Bariatric surgery status; E66.9 Obesity, unspecified; Z68.35 Body mass index [BMI] 35.0-35.9, adult; D50.9 Iron deficiency anemia, unspecified
CPT/HCPCS: 36415; 71045-TC-FY; 74177-TC; 74183-TC; 76705-TC; 80053; 81003; 82607; 82746; 83690; 83735; 83880; 85025; 85610; 86704; 86706; 86708; 86803; 86850; 86900; 86901; 87340; 93005; 93010; 99284-25

== ENCOUNTER 2018-05-22 12:02 | Inpatient (IN) | payer OTHER ==
--- NOTE | 2018-05-22 13:09 | PDOC ---
History of Present Illness - General Chief Complaint: Nausea/Vomiting Stated Complaint: ABD PAIN Time Seen by Provider: 05/22/18 13:06 History Source: Patient - History of Present Illness Initial Comments: 05/22/18 13:22 The patient is a 47 year old male with a PMH of Gastric Sleeve, SBO, NIDDM ( recently stopped insulin pump after weight loss), and ETOH Abuse (? liver cirrhosis) presents to the ED c/o 2 day h/o abdominal pain. States the pain is "punching" 10/10, constant, localized to his central abdomen. Three episodes of NBNB emesis today. Last PO intake was an Egg McMuffin yesterday morning. H/o recent endoscopy with Dr. Silverio, uncertain of results. Has been taking Percocet for his pain. The patient denies chest pain, shortness of breath, fevers/chills, dysuria/ hematuria, numbness/tingling. Allergy: Penicillin Surgical: Gastric sleeve, SBO Social: former smoker, h/o ETOH abuse PMD: Dr. Aman Cantu As per EMR, patient was last evaluated in our ED in 03/25 for B/L LE edema at which time he was found to have ascites 2/2 to alcoholic hepatitis superimposed on liver cirrhosis. Past History - Past Medical History Allergies/Adverse Reactions: Allergies Allergy/AdvReac Type Severity Reaction Status Date / Time Penicillins Allergy Severe Hives Verified 05/22/18 12:18 Home Medications: Ambulatory Orders Enalapril Maleate [Vasotec] 40 mg PO DAILY 03/16/18 Biotin 10,000 mcg PO BID 03/18/18 Cyclobenzaprine HCl [Flexeril 10 mg] 10 mg PO DAILY 03/18/18 Ferrous Sulfate 325 mg PO BID 03/18/18 Folic Acid - 1 mg PO DAILY #30 tablet 03/20/18 Furosemide [Lasix] 40 mg PO DAILY #30 tablet 03/20/18 Thiamine HCl [Vitamin B1 -] 100 mg PO DAILY #30 tablet 03/20/18 COPD: No Diabetes: Yes HTN: Yes Liver Disease: Yes - Immunization History Immunization Up to Date: Yes - Suicide/Smoking/Psychosocial Hx Smoking History: Never smoked Hx Alcohol Use: Yes Drug/Substance Use Hx: No Substance Use Type: None Hx Substance Use Treatment: No Review of Systems - Review of Systems Constitutional: No: Chills, Fever HEENTM: No: Recent change in vision Respiratory: No: Cough, Shortness of Breath Cardiac (ROS): No: Chest Pain, Lightheadedness, Palpitations, Syncope ABD/GI: Yes: Nausea, Vomiting, Abdominal cramping. No: Constipated, Diarrhea, Rectal Bleeding : No: Burning, Dysuria *Physical Exam - Vital Signs Last Vital Signs Temp Pulse Resp BP Pulse Ox 98.3 F 92 H 22 H 160/91 98 05/22/18 12:18 05/22/18 12:18 05/22/18 12:18 05/22/18 12:18 05/22/18 12:18 - Physical Exam General Appearance: Yes: Nourished, Appropriately Dressed HEENT: positive: Normal Voice, Scleral Icterus (R), Scleral Icterus (L), Hearing Grossly Normal Neck: positive: Trachea midline, Supple Respiratory/Chest: positive: Lungs Clear, Normal Breath Sounds Cardiovascular: positive: S1, S2 Gastrointestinal/Abdominal: positive: Other ((+) bowel sounds, LLQ TTP w/o peritoneal signs, ) Musculoskeletal: negative: CVA Tenderness (R), CVA Tenderness (L) Extremity: positive: Normal Capillary Refill, Normal Inspection Integumentary: positive: Normal Color, Dry, Warm Neurologic: positive: Fully Oriented, Alert Moderate Sedation - Procedure Monitoring Vital Signs: Procedure Monitoring Vital Signs Temperature 98.3 F 05/22/18 12:18 Pulse Rate 92 H 05/22/18 12:18 Respiratory Rate 22 H 05/22/18 12:18 Blood Pressure 160/91 05/22/18 12:18 O2 Sat by Pulse Oximetry (%) 98 05/22/18 12:18 ED Treatment Course - LABORATORY CBC & Chemistry Diagram: 05/23/18 05:18 05/23/18 05:18 Medical Decision Making - Medical Decision Making 05/22/18 14:43 47 year old male with abdominal pain, h/o gastric sleeve and SBO. Hypertensive (160/91) @ presentation, other VS unremarkable. Frontal diagnosis: SBO, gastroenteritis, PUD, pancreatitis, esophageal spasm, CT (less likely, however abdominal pain as anginal equivalent). Will obtain abdominal CT, basic labs, lipase, latic acid as well as Troponin. Morphine for pain control. Reassess. 05/22/18 15:04 No leukocytosis Elevated Bilirubin (2.8 CT pending Patient reassessed @ bedside, symptomatically improved s/p Morphine 05/22/18 18:[address] shows multiple loops of dilated bowel. Presumptive clinical diagnosis of SBO; NPO CT read as SBO - case d/w Dr. Lazo (General Surgery) recommends evaluation by bariatric surgeon as patient has h/o gastric sleeve Case d/w Dr. Raines - will evaluate patient tomorrow; Dr. Alberts (covers for patient's PMD Dr. Cantu) accepts patient for admission Patient counseled on plan of care. Will give additional Morphine for pain control. Night team aware of patient and need for SHIN tube if patient has episodes of emesis. *DC/Admit/Observation/Transfer Diagnosis at time of Disposition: Abdominal pain - Discharge Dispostion Disposition: HOME Condition at time of disposition: Good Decision to Admit order: No - Referrals - Patient Instructions - Post Discharge Activity
[2018-05-22] MEDS ORDERED: SODIUM CHLORIDE 0.9% 500 ML INFUS.BAG IV ONE (13:24)
[2018-05-22] MEDS ORDERED: morphine CARPU-JECT 4 MG/1 ML DISP.SYRIN IVPUSH ONE ×2 (13:25→18:55)
--- NOTE | 2018-05-22 14:35 | PDOC ---
Attending Attestation - Resident Resident Name: Mary Hunter - ED Attending Attestation I have performed the following: I have examined & evaluated the patient, The case was reviewed & discussed with the resident, I agree w/resident's findings & plan, Exceptions are as noted - HPI HPI: 05/22/18 14:33 47 M with h/o Gastric Sleeve, SBO, NIDDM (recently stopped insulin pump after weight loss), and ETOH Abuse, presenting to ED with diffuse abdominal pain and vomiting. Pt reports 3 episodes of NBNB emesis since last night. Endorses cramplike pain diffusely. Denies diarrhea. States he has not had a BM for 2 days. Pt states this feels similar to his previous SBO. Denies CP/SOB. - Physicial Exam PE: 05/22/18 14:34 "GENERAL: Awake, alert, and fully oriented, in no acute distress. HEAD: No signs of trauma EYES: PERRLA, EOMI, sclera anicteric, conjunctiva clear ENT: Auricles normal inspection, hearing grossly normal, nares patent, oropharynx clear without exudates. Moist mucosa NECK: Nontender, no stepoffs, Normal ROM, supple, no lymphadenopathy, JVD, or masses LUNGS: Breath sounds equal, clear to auscultation bilaterally. No wheezes, and no crackles HEART: Regular rate and rhythm, normal S1 and S2, no murmurs, rubs or gallops ABDOMEN: + diffuse TTP, normoactive bowel sounds. No guarding, no rebound. No masses EXTREMITIES: Normal range of motion, no edema. No clubbing or cyanosis. No cords, erythema, or tenderness NEUROLOGICAL: Cranial nerves II through XII intact. 5/5 strength and sensation in all extremities, Normal speech, normal gait, normal cerebellar function SKIN: Warm, Dry, normal turgor, no rashes or lesions noted. - Medical Decision Making 05/22/18 14:35 47 M with abdominal pain, N+V. Suspect recurrent SBO. - Labs - CTAP - IVF, zofran, pain control 05/22/18 18:[address] shows dilated loops of small bowel, likely SBO Dr. Raines consulted Pt admitted to Dr. Alberts
[2018-05-22 14:39] LABS: BASO % 0.4 % (0-2.0); EOS % 0.3 % (0-4.5); HEMATOCRIT 31.8 % (35.4-49); HEMOGLOBIN 10.9 GM/dL (11.7-16.9); LYMPH % 15.4 % (8-40); MCH 30.7 pg (25.7-33.7); MCHC 34.2 g/dl (32.0-35.9); MEAN CELL VOLUME 89.8 fl (80-96); MEAN PLT VOLUME 10.2 fl (7.5-11.1); MONO % 6.4 % (3.8-10.2); NEUT % 77.5 % (42.8-82.8); PLATELET COUNT 87 K/MM3 (134-434); RBC 3.54 M/mm3 (4.00-5.60); RDW 13.7 % (11.9-15.9); WHITE BLOOD COUNT 7.1 K/mm3 (4.0-10.0)
[2018-05-22] MEDS ORDERED: morphine SULFATE 4 MG/ML VIAL ONE ×2 (14:42→19:19)
[2018-05-22 14:54] LABS: INR 1.39 (0.83-1.09); PROTHROMBIN TIME (PATIENT) 16.4 SEC (9.7-13.0)
[2018-05-22 14:57] LABS: ACTIVATED PTT 33.1 SECONDS (25.2-36.5)
[2018-05-22 15:15] LABS: ALBUMIN 3.4 g/dl (3.4-5.0); ALK PHOS 101 U/L (45-117); ANION GAP 7 MMOL/L (8-16); BILIRUBIN,TOTAL 2.8 mg/dL (0.2-1); BLOOD UREA NITROGEN 16 mg/dL (7-18); CALCIUM 9.3 mg/dL (8.5-10.1); CHLORIDE 101 mmol/L (98-107); CO2 27 mmol/L (21-32); CREATININE 1.1 mg/dL (0.55-1.3); GLUCOSE,RANDOM 130 mg/dL (74-106); N-TERMINAL BNP 417.1 pg/ml (5-125); POTASSIUM 4.2 mmol/L (3.5-5.1); SGOT/AST 47 U/L (15-37); SGPT/ALT 29 U/L (13-61); SODIUM 135 mmol/L (136-145); TOT PROT 8.4 g/dl (6.4-8.2)
--- NOTE | 2018-05-22 18:08 | EKG ---
Test Reason : Blood Pressure : / mmHG Vent. Rate : 088 BPM Atrial Rate : 088 BPM P-R Int : 148 ms QRS Dur : 090 ms QT Int : 382 ms P-R-T Axes : 040 024 029 degrees QTc Int : 462 ms NORMAL SINUS RHYTHM POSSIBLE LEFT ATRIAL ENLARGEMENT BORDERLINE ECG Confirmed by MD JOVAN, MARISSA ([id number]) on 05/22/2018 6:07:54 PM Referred By: Confirmed By:MARISSA ALDANA MD
[2018-05-22] MEDS ORDERED: HYDROmorphone HCL CARPU-JECT 2 MG/1 ML DISP.SYRIN IVPUSH ONE (21:53)
[2018-05-22] MEDS ORDERED: HYDROmorphone HCl 2 MG/ML VIAL ONE (21:56)
[2018-05-23] MEDS: DEXTROSE 5%-0.45% SALINE 1,000 ML IV SCH ×3 (03:17→18:14)
[2018-05-23] MEDS ORDERED: morphine SULFATE 4 MG/ML VIAL ONE ×2 (05:20→11:48)
[2018-05-23] MEDS: morphine SULFATE 4 MG/ML VIAL IVPUSH PRN ×3 (05:23→23:14)
[2018-05-23 05:56] LABS: BASO % 0.8 % (0-2.0); HEMATOCRIT 30.6 % (35.4-49); HEMOGLOBIN 10.5 GM/dL (11.7-16.9); LYMPH % 23.8 % (8-40); MCH 31.2 pg (25.7-33.7); MCHC 34.4 g/dl (32.0-35.9); MEAN CELL VOLUME 90.9 fl (80-96); MONO % 10.3 % (3.8-10.2); NEUT % 64.1 % (42.8-82.8); PLATELET COUNT 77 K/MM3 (134-434); RBC 3.36 M/mm3 (4.00-5.60); RDW 13.7 % (11.9-15.9); WHITE BLOOD COUNT 7.4 K/mm3 (4.0-10.0)
[2018-05-23 06:17] LABS: ALBUMIN 3.1 g/dl (3.4-5.0); ALK PHOS 89 U/L (45-117); ANION GAP 8 MMOL/L (8-16); BILIRUBIN,TOTAL 3.2 mg/dL (0.2-1); BLOOD UREA NITROGEN 18 mg/dL (7-18); CALCIUM 8.6 mg/dL (8.5-10.1); CHLORIDE 102 mmol/L (98-107); CO2 24 mmol/L (21-32); CREATININE 1.1 mg/dL (0.55-1.3); GLUCOSE,RANDOM 156 mg/dL (74-106); POTASSIUM 3.9 mmol/L (3.5-5.1); SGOT/AST 40 U/L (15-37); SGPT/ALT 23 U/L (13-61); SODIUM 134 mmol/L (136-145); TOT PROT 7.5 g/dl (6.4-8.2)
[2018-05-23] MEDS ORDERED: HEMOQUE TEST 1 EACH EACH ONE (06:55)
--- NOTE | 2018-05-23 08:22 | PN ---
Progress Note, Physician Chief Complaint: Known from recent admission in March and from office: Progressive ascites, LE edema, hypoalbuminemia secondary to hepatic cirrhosis likely due to chronic ETOH He now presents to ER with following presentation: " The patient is a 47 year old male with a PMH of Gastric Sleeve, SBO, NIDDM ( recently stopped insulin pump after weight loss), and ETOH Abusue w/unspecified liver path presents to the ED c/o 2 day h/o abdominal pain. States the pain is "punching" 10/10, constant, localized to his central abdomen. Three episodes of NBNB emesis today. Last PO intake was an Egg McMuffin yesterday morning. H/o recent endoscopy with Dr. Silverio, uncertain of results. The patient denies chest pain, shortness of breath, fevers/chills." He denies CP, SOB, palpitations, syncope. History of Present Illness: CT A/P revealed a small bowel obstruction. He is awaiting a surgical consult. - Current Medication List Current Medications: Active Medications Enalapril Maleate (Vasotec -) 40 mg PO DAILY [facility] Furosemide (Lasix Injection -) 40 mg IVPUSH DAILY [facility] Heparin Sodium (Porcine) (Heparin -) 5,000 unit SQ BID [facility] Dextrose/Sodium Chloride (D5-1/2ns -) 1,000 mls @ 75 mls/hr IV ASDIR ANOTN Last Admin: 05/23/18 03:17 Dose: 75 mls/hr Morphine Sulfate (Morphine Sulfate) 4 mg IVPUSH Q6H PRN PRN Reason: pain Last Admin: 05/23/18 05:23 Dose: 4 mg Ondansetron HCl (Zofran Injection) 4 mg IVPUSH Q6H PRN PRN Reason: NAUSEA AND/OR VOMITING - Objective Vital Signs: Vital Signs Temperature 98.0 F 05/23/18 00:33 Pulse Rate 88 05/23/18 06:53 Respiratory Rate 05/23/18 06:53 Blood Pressure 141/86 05/23/18 06:53 O2 Sat by Pulse Oximetry (%) 100 05/23/18 06:53 Constitutional: Yes: Anxious HENT: Yes: Atraumatic Neck: Yes: Trachea Midline Cardiovascular: Yes: Regular Rate and Rhythm Respiratory: Yes: CTA Bilaterally (no rales or wheezing) Gastrointestinal: Yes: Other (distended. Decreased bowel sounds. No rebound or guarding.) Edema: Yes Edema: LLE: 1+, RLE: 1+ Neurological: Yes: Alert, Oriented Labs: CBC, BMP 05/23/18 05:18 05/23/18 05:18 INR, PTT INR 1.39 (0.83-1.09) H 05/22/18 14:30 - ....Imaging Chest X-ray: Image Reviewed Cat Scan: Report Reviewed EKG: Image Reviewed (NSR 88bpm) Problem List - Problems (1) Small bowel obstruction Code(s): K56.609 - UNSP INTESTNL OBST, UNSP TO PARTIAL VERSUS COMPLETE OBST (2) Alcoholic cirrhosis of liver Code(s): K70.30 - ALCOHOLIC CIRRHOSIS OF LIVER WITHOUT ASCITES (3) Cirrhosis Code(s): K74.60 - UNSPECIFIED CIRRHOSIS OF LIVER Qualifiers: Hepatic cirrhosis type: alcoholic cirrhosis Ascites presence: with ascites Qualified Code(s): K70.31 - Alcoholic cirrhosis of liver with ascites (4) Thrombocytopenia Code(s): D69.6 - THROMBOCYTOPENIA, UNSPECIFIED Assessment/Plan IMP: Small bowel obstruction ETOH cirrhosis Thrombocytopenia REC: 1. Surgical evaluation. Further Rx as per surgery. 2. D/C IV Lasix 3. There are no cardiac contraindications to proceed with bowel surgery if deemed necessary as this would be considered urgent. Patient has no anginal symptoms, no , no evidence of decompensated CHF as is in normal sinus rhythm. Will follow. Please call if any questions
[2018-05-23] MEDS ORDERED: FUROSEMIDE 40 MG/4 ML INJECTABLE VIAL IVPUSH SCH (10:00)
[2018-05-23] MEDS ORDERED: FOLIC ACID 1 MG TABLET (FP) PO SCH (10:00)
[2018-05-23] MEDS ORDERED: FUROSEMIDE 40 MG TABLET (FP) PO SCH (10:00)
[2018-05-23] MEDS ORDERED: PATIENT'S OWN MEDICATION (NON-FORMULARY) (Ferrous Sulfate [Ferrous Sulfate] 325 MG) PO SCH (10:00)
[2018-05-23] MEDS: HEPARIN NA (PORCINE) 5,000 UNITS/ML 1ML VIAL SQ SCH ×2 (10:51→21:29)
[2018-05-23] MEDS: ENALAPRIL MALEATE 10 MG TABLET (FP) PO SCH (10:51)
--- NOTE | 2018-05-23 11:38 | HP ---
Admitting History and Physical - Admission History of Present Illness: Pt is a 47 y/o male w/ PMH significant for HTN, diabetes, asthma, anemia, liver dz, h/o etoh abuse and morbid obesity(S/P gastric sleeve). Pt presented to the ER with complaints of abd pain with associated nausea and vomiting x 2 days. Pt states that he had an SBO previously and had ex-lap with ROSALINDA and small bowel resection in 2006. Pt also had a gastric sleeve in 2003. Pt states that he continues to have epigastric pain and nausea, but last vomited this morning. Pt denies fever,chills. Pt last BM was yesterday was normal. Denies diarrhea. Passing flatus. - Past Medical History Cardiovascular: Yes: HTN Pulmonary: Yes: Asthma Gastrointestinal: Yes: Other (SBO) Heme/Onc: Yes: Anemia Psych: Yes: Addictions (ETOH abuse) Endocrine: Yes: Diabetes Mellitus (States diet controlled: off insulin and oral therapy x 1 year per patient) - Past Surgical History Past Surgical History: Yes: Bariatric Surgery (gastric sleeve (2007 or 2008)) Additional Past Surgical History: Colon resection due to SBO - Smoking History Smoking history: Never smoked - Alcohol/Substance Use Hx Alcohol Use: Yes History of Substance Use: reports: None - Social History ADL: Independent Occupation: Unemployed History of Recent Travel: No Home Medications - Allergies Allergies/Adverse Reactions: Allergies Allergy/AdvReac Type Severity Reaction Status Date / Time Penicillins Allergy Severe Hives Verified 05/22/18 12:18 - Home Medications Home Medications: Ambulatory Orders Enalapril Maleate [Vasotec] 40 mg PO DAILY 03/16/18 Biotin 10,000 mcg PO BID 03/18/18 Cyclobenzaprine HCl [Flexeril 10 mg] 10 mg PO DAILY 03/18/18 Ferrous Sulfate 325 mg PO BID 03/18/18 Folic Acid - 1 mg PO DAILY #30 tablet 03/20/18 Furosemide [Lasix] 40 mg PO DAILY #30 tablet 03/20/18 Thiamine HCl [Vitamin B1 -] 100 mg PO DAILY #30 tablet 03/20/18 Family Disease History - Family Disease History Family History: Unremarkable Family Disease History: Other: Father (: 74: pancreatic ca), Mother (: 65: [place]), Brother (20: full and half), Sister (16: full and half), Son (3, healthy), Daughter (3, healthy) Review of Systems - Review of Systems Constitutional: reports: No Symptoms Eyes: reports: No Symptoms HENT: reports: No Symptoms Neck: reports: No Symptoms Cardiovascular: reports: No Symptoms Respiratory: reports: No Symptoms Gastrointestinal: reports: Abdominal Pain, Nausea, Vomiting Genitourinary: reports: No Symptoms Physical Examination Vital Signs: Vital Signs Temperature 99 F 05/23/18 09:59 Pulse Rate 89 05/23/18 09:59 Respiratory Rate 20 05/23/18 09:59 Blood Pressure 158/89 05/23/18 09:59 O2 Sat by Pulse Oximetry (%) 99 05/23/18 09:59 Constitutional: Yes: Obese Eyes: Yes: WNL, Conjunctiva Clear HENT: Yes: WNL Neck: Yes: WNL, Supple Cardiovascular: Yes: WNL, Regular Rate and Rhythm Respiratory: Yes: WNL, Regular, CTA Bilaterally Gastrointestinal: Yes: Other ((+) generalized tenderness (-) guarding/rebound0-) Musculoskeletal: Yes: WNL Extremities: Yes: WNL Edema: No Neurological: Yes: WNL, Alert, Oriented ...Motor Strength: WNL Labs: CBC, BMP 05/23/18 05:18 05/23/18 05:18 Problem List - Problems (1) Small bowel obstruction Assessment/Plan: NPO Surgical/GI consults Cont IVF Monitor abdominal exams May need NGT as per surgery Code(s): K56.609 - UNSP INTESTNL OBST, UNSP TO PARTIAL VERSUS COMPLETE OBST (2) HTN (hypertension) Assessment/Plan: Check echo Restart lasix IV As per surgery Cont vasotec Code(s): I10 - ESSENTIAL (PRIMARY) HYPERTENSION (3) Anemia Code(s): D64.9 - ANEMIA, UNSPECIFIED (4) Diabetes Assessment/Plan: Cont sliding scale w/ coverage Code(s): E11.9 - TYPE 2 DIABETES MELLITUS WITHOUT COMPLICATIONS (5) Cirrhosis Code(s): K74.60 - UNSPECIFIED CIRRHOSIS OF LIVER Qualifiers: Hepatic cirrhosis type: alcoholic cirrhosis Ascites presence: with ascites Qualified Code(s): K70.31 - Alcoholic cirrhosis of liver with ascites (6) Morbid obesity Code(s): E66.01 - MORBID (SEVERE) OBESITY DUE TO EXCESS CALORIES
--- NOTE | 2018-05-23 12:49 | ECHO ---
Name: QUENTIN LAI Exam:Adult Echocardiogram Study Date: 05/23/2018 08:22 AM Age: 47 yrs Reason For Study: CHF Height: 75 in Weight: 295 lb BSA: 2.6 m2 MMode/2D Measurements & Calculations IVSd: 1.2 cm Ao root diam: 3.9 cm LVIDd: 6.0 cm LA dimension: 4.3 cm LVIDs: 3.1 cm ACS: 2.5 cm LVPWd: 1.1 cm IVSs: 1.5 cm LVPWs: 1.8 cm EDV(Teich): 182.7 ml ESV(Teich): 37.0 ml Doppler Measurements & Calculations MV E max jose luis: 85.6 cm/sec Ao V2 max: 162.9 cm/sec MV A max jose luis: 83.1 cm/sec Ao max P.6 mmHg MV E/A: 1.0 TR max jose luis: 255.3 cm/sec Med Peak E' Jose Luis: 6.3 cm/sec TR max P.1 mmHg Med E/e': 13.5 RVSP(TR): 36.1 mmHg Lat Peak E' Jose Luis: 8.8 cm/sec Lat E/e': 9.8 RAP systole: 10.0 mmHg Procedure A two-dimensional transthoracic echocardiogram with color flow and Doppler was performed. Left Ventricle The left ventricle is mildly dilated. The left ventricular ejection fraction is normal. Left Ventricu lar Filling pattern is normal for age. The left ventricular wall motion is normal. Right Ventricle The right ventricle is normal in size and function. Atria The left atrium is mildly dilated. The right atrium is mildly dilated. Mitral Valve There is mild mitral valve thickening. There is no mitral valve stenosis. There is mild to moderate m itral regurgitation. Tricuspid Valve There is mild tricuspid valve thickening. There is no tricuspid stenosis. There is moderate tricuspid regurgitation. Right ventricular systolic pressure is normal. Aortic Valve The aortic valve is normal in structure and function. Hemodynamically significant valvular aortic gilma nosis cannot be excluded. No aortic regurgitation is present. Pulmonic Valve The pulmonic valve is not well visualized. Great Vessels Borderline aortic root dilatation. Pericardium/Pleura There is no pericardial effusion. Interpretation Summary The left ventricle is mildly dilated. The left ventricular ejection fraction is normal. The left ventricular wall motion is normal. The left atrium is mildly dilated. The right atrium is mildly dilated. There is mild to moderate mitral regurgitation. There is moderate tricuspid regurgitation. Right ventricular systolic pressure is normal. Left Ventricular Filling pattern is normal for age. Borderline aortic root dilatation. MD Darien Combs 05/23/2018 12:48 PM
--- NOTE | 2018-05-23 14:30 | CONSULT ---
<Pradeep Hui - Last Filed: 05/23/18 14:22> - Consultation REQUESTING PROVIDER: CONSULT REQUEST: We have been asked to surgically evaluate this patient for SBO PCP:Monique Alberts HISTORY OF PRESENT ILLNESS: 47yo M presented to the ED with complaints of abd pain with associated nausea and vomiting x 2 days. Pt states that he had an SBO previously and had ex-lap with ROSALINDA and small bowel resection in 2006. Pt also had a gastric sleeve in 2003. Pt states that he continues to have epigastric pain and nausea, but last vomited this morning. Pt denies fever,chills. Pt last BM was yesterday was normal. Denies diarrhea. Passing flatus. PMHx: DM, Asthma, Anemia, HTN, liver disease, hz of etoh abuse Home Medications Medication Instructions Recorded Enalapril Maleate [Vasotec] 40 mg PO DAILY 03/16/18 Biotin 10,000 mcg PO BID 03/18/18 Cyclobenzaprine HCl [Flexeril 10 10 mg PO DAILY 03/18/18 mg] Ferrous Sulfate 325 mg PO BID 03/18/18 Folic Acid - 1 mg PO DAILY #30 tablet 03/20/18 Furosemide [Lasix] 40 mg PO DAILY #30 tablet 03/20/18 Thiamine HCl [Vitamin B1 -] 100 mg PO DAILY #30 tablet 03/20/18 Allergies Allergy/AdvReac Type Severity Reaction Status Date / Time Penicillins Allergy Severe Hives Verified 05/22/18 12:18 PHYSICAL EXAM: GENERAL: Awake, alert, and fully oriented, in no acute distress. HEAD: Normal with no signs of trauma. EYES: PERRL, sclera anicteric, conjunctiva clear. NECK: Normal ROM, supple without lymphadenopathy, JVD, or masses. LUNGS: Clear to auscultation bilat anteriorly. No wheezes, and no crackles. No accessory muscle use. HEART: Regular rate and rhythm. No murmurs ABDOMEN: Soft, mild epigastric tenderness, not distended, normoactive bowel sounds, no guarding, no rebound, no masses. No organomegaly. LOWER EXTREMITIES: 2+ pulses, warm, well-perfused. No calf tenderness. No peripheral edema. NEUROLOGICAL: Normal speech, gait not observed. PSYCH: Cooperative. Good eye contact. Appropriate mood and affect. SKIN: Warm, dry, normal turgor, no rashes or lesions noted. Vital Signs Temperature 99 F 05/23/18 09:59 Pulse Rate 89 05/23/18 09:59 Respiratory Rate 20 05/23/18 09:59 Blood Pressure 158/89 05/23/18 09:59 O2 Sat by Pulse Oximetry (%) 99 05/23/18 09:59 Lab Results WBC 7.4 K/mm3 (4.0-10.0) 05/23/18 05:18 RBC 3.36 M/mm3 (4.00-5.60) L 05/23/18 05:18 Hgb 10.5 GM/dL (11.7-16.9) L 05/23/18 05:18 Hct 30.6 % (35.4-49) L 05/23/18 05:18 MCV 90.9 fl (80-96) 05/23/18 05:18 MCHC 34.4 g/dl (32.0-35.9) 05/23/18 05:18 RDW 13.7 % (11.9-15.9) 05/23/18 05:18 Plt Count 77 K/MM3 (134-434) L 05/23/18 05:18 Sodium 134 mmol/L (136-145) L 05/23/18 05:18 Potassium 3.9 mmol/L (3.5-5.1) 05/23/18 05:18 Chloride 102 mmol/L (98-107) 05/23/18 05:18 Carbon Dioxide 24 mmol/L (21-32) 05/23/18 05:18 Anion Gap 8 MMOL/L (8-16) 05/23/18 05:18 BUN 18 mg/dL (7-18) 05/23/18 05:18 Creatinine 1.1 mg/dL (0.55-1.3) 05/23/18 05:18 Random Glucose 156 mg/dL (74-106) H 05/23/18 05:18 Calcium 8.6 mg/dL (8.5-10.1) 05/23/18 05:18 Blood Type A POSITIVE 05/22/18 14:30 Antibody Screen Negative 05/22/18 14:30 INR 1.39 (0.83-1.09) H 05/22/18 14:30 Problem List - Problems (1) Small bowel obstruction Assessment/Plan: Plan -keep pt NPO for now, consider NGT if vomiting worsens -serial abd exam -trend LFTs -will follow Case discussed with Dr. Raines, who agrees with plan Code(s): K56.609 - UNSP INTESTNL OBST, UNSP TO PARTIAL VERSUS COMPLETE OBST <Adrian Raines - Last Filed: 05/23/18 19:02> - Consultation REQUESTING PROVIDER: CONSULT REQUEST: We have been asked to surgically evaluate this patient for ( specify). PCP:Monique Alberts HISTORY OF PRESENT ILLNESS: PMHx: PSHx: Home Medications Medication Instructions Recorded Enalapril Maleate [Vasotec] 40 mg PO DAILY 03/16/18 Biotin 10,000 mcg PO BID 03/18/18 Cyclobenzaprine HCl [Flexeril 10 10 mg PO DAILY 03/18/18 mg] Ferrous Sulfate 325 mg PO BID 03/18/18 Folic Acid - 1 mg PO DAILY #30 tablet 03/20/18 Furosemide [Lasix] 40 mg PO DAILY #30 tablet 03/20/18 Thiamine HCl [Vitamin B1 -] 100 mg PO DAILY #30 tablet 03/20/18 Allergies Allergy/AdvReac Type Severity Reaction Status Date / Time Penicillins Allergy Severe Hives Verified 05/22/18 12:18 REVIEW OF SYSTEMS: CONSTITUTIONAL: Absent: fever, chills, diaphoresis, generalized weakness, malaise, loss of appetite, weight change CARDIOVASCULAR: Absent: chest pain, syncope, palpitations, irregular heart rate, lightheadedness , peripheral edema RESPIRATORY: Absent: cough, shortness of breath, dyspnea with exertion, wheezing, stridor, hemoptysis GASTROINTESTINAL: Absent: abdominal pain, abdominal distension, nausea, vomiting, diarrhea, constipation, melena, hematochezia GENITOURINARY: Absent: dysuria, frequency, urgency, hesitancy, hematuria, flank pain, genital pain MUSCULOSKELETAL: Absent: myalgia, arthralgia, joint swelling, back pain, neck pain SKIN: Absent: rash, itching, pallor HEMATOLOGIC/IMMUNOLOGIC: Absent: easy bleeding, easy bruising, lymphadenopathy NEUROLOGIC: Absent: headache, focal weakness, paresthesias, dizziness, unsteady gait, seizure, mental status changes, bladder or bowel incontinence PSYCHIATRIC: Absent: anxiety, depression, suicidal or homicidal ideation, hallucinations. PHYSICAL EXAM: GENERAL: Awake, alert, and fully oriented, in no acute distress. HEAD: Normal with no signs of trauma. EYES: PERRL, sclera anicteric, conjunctiva clear. NECK: Normal ROM, supple without lymphadenopathy, JVD, or masses. LUNGS: Clear to auscultation bilat anteriorly. No wheezes, and no crackles. No accessory muscle use. HEART: Regular rate and rhythm. No murmurs ABDOMEN: Soft, nontender, not distended, normoactive bowel sounds, no guarding, no rebound, no masses. No organomegaly. MUSCULOSKELETAL: Normal ROM at all joints. No bony deformities or tenderness. No CVA tenderness. UPPER EXTREMITIES: 2+ pulses, warm, well-perfused. No cyanosis. Cap refill <2 seconds. No peripheral edema. LOWER EXTREMITIES: 2+ pulses, warm, well-perfused. No calf tenderness. No peripheral edema. NEUROLOGICAL: Normal speech, gait not observed. PSYCH: Cooperative. Good eye contact. Appropriate mood and affect. SKIN: Warm, dry, normal turgor, no rashes or lesions noted. Vital Signs Temperature 98.9 F 05/23/18 15:27 Pulse Rate 90 05/23/18 15:27 Respiratory Rate 20 05/23/18 15:27 Blood Pressure 183/100 H 05/23/18 15:27 O2 Sat by Pulse Oximetry (%) 98 05/23/18 15:27 Lab Results WBC 7.4 K/mm3 (4.0-10.0) 05/23/18 05:18 RBC 3.36 M/mm3 (4.00-5.60) L 05/23/18 05:18 Hgb 10.5 GM/dL (11.7-16.9) L 05/23/18 05:18 Hct 30.6 % (35.4-49) L 05/23/18 05:18 MCV 90.9 fl (80-96) 05/23/18 05:18 MCHC 34.4 g/dl (32.0-35.9) 05/23/18 05:18 RDW 13.7 % (11.9-15.9) 05/23/18 05:18 Plt Count 77 K/MM3 (134-434) L 05/23/18 05:18 Sodium 134 mmol/L (136-145) L 05/23/18 05:18 Potassium 3.9 mmol/L (3.5-5.1) 05/23/18 05:18 Chloride 102 mmol/L (98-107) 05/23/18 05:18 Carbon Dioxide 24 mmol/L (21-32) 05/23/18 05:18 Anion Gap 8 MMOL/L (8-16) 05/23/18 05:18 BUN 18 mg/dL (7-18) 05/23/18 05:18 Creatinine 1.1 mg/dL (0.55-1.3) 05/23/18 05:18 Random Glucose 156 mg/dL (74-106) H 05/23/18 05:18 Calcium 8.6 mg/dL (8.5-10.1) 05/23/18 05:18 Blood Type A POSITIVE 05/22/18 14:30 Antibody Screen Negative 05/22/18 14:30 INR 1.39 (0.83-1.09) H 05/22/18 14:30 Agree Small bowel obstruction Abd soft WBC 7.4 CT A/P reviewed NPO IV fluids Serial abdominal exams If worsens, NG tube
[2018-05-23 15:41] VITALS: BMI 36.8
[2018-05-23] MEDS ORDERED: morphine SULFATE 4 MG/ML VIAL IVPUSH ONE (16:45)
[2018-05-23] MEDS: ONDANSETRON 4 MG/2 ML VIAL IVPUSH PRN (21:29)
[2018-05-23] MEDS ORDERED: ACETAMINOPHEN 325 MG TABLET (FP) PO PRN (22:50)
[2018-05-23] MEDS: ACETAMINOPHEN 1000 MG/100 ML VIAL (NON FORMULARY) IVPB PRN (23:31)
[2018-05-24] MEDS: morphine SULFATE 4 MG/ML VIAL IVPUSH PRN ×4 (02:40→23:29)
[2018-05-24] MEDS: DEXTROSE 5%-0.45% SALINE 1,000 ML IV SCH ×2 (03:28→06:34)
[2018-05-24] MEDS: INSULIN SLIDING SCALE (NOVOLOG) 1 VIAL SQ SCH ×3 (06:35→23:29)
[2018-05-24 07:18] LABS: BASO % 0.4 % (0-2.0); HEMATOCRIT 28.3 % (35.4-49); HEMOGLOBIN 9.7 GM/dL (11.7-16.9); LYMPH % 18.6 % (8-40); MCHC 34.3 g/dl (32.0-35.9); MEAN CELL VOLUME 90.5 fl (80-96); MEAN PLT VOLUME 9.6 fl (7.5-11.1); MONO % 13.2 % (3.8-10.2); NEUT % 66.8 % (42.8-82.8); PLATELET COUNT 71 K/MM3 (134-434); RBC 3.12 M/mm3 (4.00-5.60); RDW 13.6 % (11.9-15.9); WHITE BLOOD COUNT 5.8 K/mm3 (4.0-10.0)
--- NOTE | 2018-05-24 08:30 | CON.GI ---
Consult Consult Specialty:: Gastroenterology Referred by:: Dr. Monique Alberts Reason for Consultation:: SBO - History of Present Illness Chief Complaint: Mid abdominal pain with nausea and vomiting x 3 days History of Present Illness: Patient is a 47 y/o male that presented to ER with complaints of sharp, non- radiating mid abdominal pain for 3 days. Patient states he developed nausea and vomiting on the second day, vomitus was clear in color as per pt. Patient has past history of SBO and ex-lap with ROSALINDA and small bowel resection in 2006. Abdominal CT scan show development of multiple small bowel loops are seen within the left abdomen as well as the left and central third of the pelvis consistent with SBO. Patient states having pain this morning and one episode of vomiting with dark black vomitus. - History Source History Provided By: Patient Limitations to Obtaining History: No Limitations - Past Medical History Cardio/Vascular: Yes: HTN Pulmonary: Yes: Asthma Gastrointestinal: Yes: Other (SBO) Psych: Yes: Addictions (ETOH abuse) Endocrine: Yes: Diabetes Mellitus (States diet controlled: off insulin and oral therapy x 1 year per patient) - Past Surgical History Past Surgical History: Yes: Bariatric Surgery (gastric sleeve (2007 or 2008)) - Alcohol/Substance Use Hx Alcohol Use: Yes History of Substance Use: reports: None - Smoking History Smoking history: Never smoked - Social History Usual Living Arrangement: With Spouse ADL: Independent Occupation: Unemployed History of Recent Travel: No Home Medications - Allergies Allergies/Adverse Reactions: Allergies Allergy/AdvReac Type Severity Reaction Status Date / Time Penicillins Allergy Severe Hives Verified 05/22/18 12:18 - Home Medications Home Medications: Ambulatory Orders Enalapril Maleate [Vasotec] 40 mg PO DAILY 03/16/18 Biotin 10,000 mcg PO BID 03/18/18 Cyclobenzaprine HCl [Flexeril 10 mg] 10 mg PO DAILY 03/18/18 Ferrous Sulfate 325 mg PO BID 03/18/18 Folic Acid - 1 mg PO DAILY #30 tablet 03/20/18 Furosemide [Lasix] 40 mg PO DAILY #30 tablet 03/20/18 Thiamine HCl [Vitamin B1 -] 100 mg PO DAILY #30 tablet 03/20/18 Family Disease History - Family Disease History Family Disease History: Other: Father (: 74: pancreatic ca), Mother (: 65: [place]), Brother (20: full and half), Sister (16: full and half), Son (3, healthy), Daughter (3, healthy) Review of Systems - Review of Systems Constitutional: reports: No Symptoms Eyes: reports: No Symptoms HENT: reports: No Symptoms Neck: reports: No Symptoms Cardiovascular: reports: No Symptoms Respiratory: reports: No Symptoms Gastrointestinal: reports: Abdominal Pain, Nausea, Vomiting Genitourinary: reports: No Symptoms Breasts: reports: No Symptoms Reported Musculoskeletal: reports: No Symptoms Integumentary: reports: No Symptoms Neurological: reports: No Symptoms Endocrine: reports: No Symptoms Hematology/Lymphatic: reports: No Symptoms Psychiatric: reports: No Symptoms Physical Exam-GI Vital Signs: Vital Signs Temperature 98.9 F 05/24/18 06:45 Pulse Rate 84 05/24/18 06:45 Respiratory Rate 05/24/18 06:45 Blood Pressure 147/92 05/24/18 06:45 O2 Sat by Pulse Oximetry (%) 98 05/23/18 22:00 Constitutional: Yes: Well Nourished, No Distress, Calm Eyes: Yes: Conjunctiva Clear HENT: Yes: Atraumatic Neck: Yes: Supple Cardiovascular: Yes: Regular Rate and Rhythm Respiratory: Yes: Regular, CTA Bilaterally Gastrointestinal Inspection: Yes: WNL ...Auscultate: Yes: Hypoactive Bowel Sounds ...Palpate: Yes: Soft, Tenderness (generalized) Neurological: Yes: Alert Labs: CBC, BMP 05/24/18 06:30 INR, PTT INR 1.39 (0.83-1.09) H 05/22/18 14:30 Hepatic Panel Total Bilirubin 3.2 mg/dL (0.2-1) H 05/24/18 06:30 AST 33 U/L (15-37) 05/24/18 06:30 ALT 20 U/L (13-61) 05/24/18 06:30 Alkaline Phosphatase 90 U/L (45-117) 05/24/18 06:30 Albumin 3.0 g/dl (3.4-5.0) L 05/24/18 06:30 Problem List - Problems (1) Abdominal pain Code(s): R10.9 - UNSPECIFIED ABDOMINAL PAIN (2) Small bowel obstruction Assessment/Plan: R> NGT to be inserted to low GOMCO suction Code(s): K56.609 - UNSP INTESTNL OBST, UNSP TO PARTIAL VERSUS COMPLETE OBST (3) Alcoholic cirrhosis of liver Assessment/Plan: R> ammonia level AFP level Code(s): K70.30 - ALCOHOLIC CIRRHOSIS OF LIVER WITHOUT ASCITES
[2018-05-24 09:08] LABS: ALK PHOS 90 U/L (45-117); ANION GAP 10 MMOL/L (8-16); BILIRUBIN,TOTAL 3.2 mg/dL (0.2-1); BLOOD UREA NITROGEN 16 mg/dL (7-18); CALCIUM 9.3 mg/dL (8.5-10.1); CHLORIDE 103 mmol/L (98-107); CO2 24 mmol/L (21-32); CREATININE 1.1 mg/dL (0.55-1.3); GLUCOSE,RANDOM 141 mg/dL (74-106); POTASSIUM 3.8 mmol/L (3.5-5.1); SGOT/AST 33 U/L (15-37); SGPT/ALT 20 U/L (13-61); SODIUM 137 mmol/L (136-145); TOT PROT 7.3 g/dl (6.4-8.2)
--- NOTE | 2018-05-24 09:22 | PN ---
Progress Note, Physician Chief Complaint: no chest pain or SOB Surgical input noted - Current Medication List Current Medications: Active Medications Acetaminophen (Tylenol -) 650 mg PO Q6H PRN PRN Reason: FEVER Acetaminophen (Ofirmev Injection -) 1,000 mg IVPB Q8H PRN PRN Reason: FEVER/PAIN LEVEL 6-10 Last Admin: 05/23/18 23:31 Dose: 1,000 mg Enalapril Maleate (Vasotec -) 40 mg PO DAILY [facility] Last Admin: 05/23/18 10:51 Dose: 40 mg Furosemide (Lasix Injection -) 40 mg IVPUSH DAILY [facility] Heparin Sodium (Porcine) (Heparin -) 5,000 unit SQ BID [facility] Last Admin: 05/23/18 21:29 Dose: 5,000 unit Dextrose/Sodium Chloride (D5-1/2ns -) 1,000 mls @ 75 mls/hr IV ASDIR [facility] Last Admin: 05/24/18 06:34 Dose: 75 mls/hr Levofloxacin (Levaquin 500 Mg Premixed Ivpb -) 500 mg in 100 mls @ 100 mls/hr IVPB HS [facility]; Protocol Last Admin: 05/23/18 23:14 Dose: 100 mls/hr Metronidazole (Flagyl 500mg Premixed Ivpb -) 500 mg in 100 mls @ 100 mls/hr IVPB TID [facility] Last Admin: 05/24/18 06:35 Dose: 100 mls/hr Insulin Aspart (Novolog Vial Sliding Scale -) 1 vial SQ ACHS [facility]; Protocol Last Admin: 05/24/18 06:35 Dose: Not Given Morphine Sulfate (Morphine Sulfate) 4 mg IVPUSH Q6H PRN PRN Reason: pain Last Admin: 05/24/18 09:06 Dose: 4 mg Ondansetron HCl (Zofran Injection) 4 mg IVPUSH Q6H PRN PRN Reason: NAUSEA AND/OR VOMITING Last Admin: 05/23/18 21:29 Dose: 4 mg - Objective Vital Signs: Vital Signs Temperature 98.9 F 05/24/18 06:45 Pulse Rate 84 05/24/18 06:45 Respiratory Rate 19 05/24/18 06:45 Blood Pressure 147/92 05/24/18 06:45 O2 Sat by Pulse Oximetry (%) 98 05/23/18 22:00 Constitutional: Yes: Calm Cardiovascular: Yes: Regular Rate and Rhythm Respiratory: Yes: CTA Bilaterally Gastrointestinal: Yes: Soft Edema: No Neurological: Yes: Alert, Oriented Labs: CBC, BMP 05/24/18 06:30 05/24/18 06:30 INR, PTT INR 1.39 (0.83-1.09) H 05/22/18 14:30 Problem List - Problems (1) Small bowel obstruction Code(s): K56.609 - UNSP INTESTNL OBST, UNSP TO PARTIAL VERSUS COMPLETE OBST (2) Alcoholic cirrhosis of liver Code(s): K70.30 - ALCOHOLIC CIRRHOSIS OF LIVER WITHOUT ASCITES (3) Cirrhosis Code(s): K74.60 - UNSPECIFIED CIRRHOSIS OF LIVER Qualifiers: Hepatic cirrhosis type: alcoholic cirrhosis Ascites presence: with ascites Qualified Code(s): K70.31 - Alcoholic cirrhosis of liver with ascites (4) Thrombocytopenia Code(s): D69.6 - THROMBOCYTOPENIA, UNSPECIFIED Assessment/Plan IMP: Small bowel obstruction ETOH cirrhosis Thrombocytopenia REC: 1. Further Rx as per surgery. 2. Would D/C IV Lasix as patient is NPO and currently euvolemic. 3. There are no cardiac contraindications to proceed with bowel surgery if deemed necessary as this would be considered urgent. Patient has no anginal symptoms, no , no evidence of decompensated CHF as is in normal sinus rhythm.
[2018-05-24] MEDS ORDERED: PT OWN MED DRAWER 7, Y5N ONE (10:02)
[2018-05-24] MEDS: HEPARIN NA (PORCINE) 5,000 UNITS/ML 1ML VIAL SQ SCH ×2 (10:07→23:30)
[2018-05-24] MEDS: FUROSEMIDE 40 MG/4 ML INJECTABLE VIAL IVPUSH SCH (10:07)
[2018-05-24] MEDS: ENALAPRIL MALEATE 10 MG TABLET (FP) PO SCH (10:07)
--- NOTE | 2018-05-24 10:31 | PN ---
Progress Note (short form) - Note Progress Note: 47yo M h/o SBO seen and examined at bedside with Dr. Raines. Pt states he had a small amount of vomiting last night about 50ml. Pt states that his abd pain is improved. Denies fever, chills. Last Vital Signs Temp Pulse Resp BP Pulse Ox 98.9 F 84 19 147/92 98 05/24/18 06:45 05/24/18 06:45 05/24/18 06:45 05/24/18 06:45 05/23/18 22:00 CBC, BMP 05/24/18 06:30 05/24/18 06:30 PE: Gen: A&O x3 Resp: breathing comfortably Abd: soft, nondistended, mild episgastric tenderness. Ext: no edema <Pradeep Hui - Last Filed: 05/24/18 10:32> - Note Progress Note: Agree Pain slightly improved One episode of small amount of vomiting; none since +Flatus No BM AVSS Abd soft, mild distention, minimal tenderness, no rebound WBC WNL AXR- some air filled loops of bowel; less evident obstruction compared to CT; retained stool in colon NPO IV fluids Minimize narcotics Serial abdominal exams <Adrian Raines - Last Filed: 05/24/18 20:31> Problem List - Problems (1) Small bowel obstruction Assessment/Plan: Plan -continue NPO and IV fluid, if nausea/voming worsens then place NGT, pt adamant about not having an NGT right now, which agree is ok at this time. -OOB/ambulate -f/up abd x-ray -will continue to follow Case seen and discussed with Dr. Raines Code(s): K56.609 - UNSP INTESTNL OBST, UNSP TO PARTIAL VERSUS COMPLETE OBST <Pradeep Hui - Last Filed: 05/24/18 10:32>
--- NOTE | 2018-05-24 11:56 | CON.ID ---
Consult - History of Present Illness History of Present Illness: 47 y.o. male with PMH of Gastric sleeve in 2003, SBO s/p small bowel resection, Ex-lap with ROSALINDA, NIDDM, ETOH abuse with liver disease presenting with c/o abdominal pain x 3 days, multiple episodes of nonbloody vomiting and no BM x 2- [address] imaging findings consistent with SBO. Noted to have low grade fever ( Tmax 100F). He reports 1 episode of vomiting today and had a BM this morning. Currently c/o mid-abdominal pain but no nausea. Denies CP, SOB, dysuria, chills , NATH and has no other specific complaints. - History Source History Provided By: Patient Limitations to Obtaining History: No Limitations - Past Medical History Cardio/Vascular: Yes: HTN Pulmonary: Yes: Asthma Gastrointestinal: Yes: Other (SBO) Psych: Yes: Addictions (ETOH abuse) Endocrine: Yes: Diabetes Mellitus (States diet controlled: off insulin and oral therapy x 1 year per patient) - Past Surgical History Past Surgical History: Yes: Bariatric Surgery (gastric sleeve (2007 or 2008)) - Alcohol/Substance Use Hx Alcohol Use: Yes History of Substance Use: reports: None - Smoking History Smoking history: Never smoked - Social History Usual Living Arrangement: With Spouse ADL: Independent Occupation: Unemployed History of Recent Travel: No Home Medications - Allergies Allergies/Adverse Reactions: Allergies Allergy/AdvReac Type Severity Reaction Status Date / Time Penicillins Allergy Severe Hives Verified 05/22/18 12:18 - Home Medications Home Medications: Ambulatory Orders Enalapril Maleate [Vasotec] 40 mg PO DAILY 03/16/18 Biotin 10,000 mcg PO BID 03/18/18 Cyclobenzaprine HCl [Flexeril 10 mg] 10 mg PO DAILY 03/18/18 Ferrous Sulfate 325 mg PO BID 03/18/18 Folic Acid - 1 mg PO DAILY #30 tablet 03/20/18 Furosemide [Lasix] 40 mg PO DAILY #30 tablet 03/20/18 Thiamine HCl [Vitamin B1 -] 100 mg PO DAILY #30 tablet 03/20/18 Family Disease History - Family Disease History Family Disease History: Other: Father (: 74: pancreatic ca), Mother (: 65: [place]), Brother (20: full and half), Sister (16: full and half), Son (3, healthy), Daughter (3, healthy) Physical Exam Vital Signs: Vital Signs Temperature 98.9 F 05/24/18 06:45 Pulse Rate 84 05/24/18 06:45 Respiratory Rate 05/24/18 06:45 Blood Pressure 147/92 05/24/18 06:45 O2 Sat by Pulse Oximetry (%) 98 05/23/18 22:00 Labs: CBC, BMP 05/24/18 06:30 05/24/18 06:30 Assessment/Plan 47 y.o. male with PMH of Gastric sleeve in 2003, SBO s/p small bowel resection, Ex-lap with ROSALINDA, NIDDM, ETOH abuse with liver disease presenting with c/o abdominal pain x 3 days, multiple episodes of nonbloody vomiting and no BM x 2- 3 days with imaging consistent with SBO. Recent low grade fever noted. Fever SBO Alcoholic Liver disease DM s/p Gastric sleeve Hx of SBO s/p resection/ROSALINDA -- continue empiric antibiotics for now -- close monitoring, Surgery/GI following -- monitor temperature trend, LFTs Will f/u Thank you
--- NOTE | 2018-05-24 17:34 | PN ---
Progress Note, Physician - Current Medication List Current Medications: Active Medications Acetaminophen (Tylenol -) 650 mg PO Q6H PRN PRN Reason: FEVER Acetaminophen (Ofirmev Injection -) 1,000 mg IVPB Q8H PRN PRN Reason: FEVER/PAIN LEVEL 6-10 Last Admin: 05/23/18 23:31 Dose: 1,000 mg Enalapril Maleate (Vasotec -) 40 mg PO DAILY [facility] Last Admin: 05/24/18 10:07 Dose: 40 mg Furosemide (Lasix Injection -) 40 mg IVPUSH DAILY [facility] Last Admin: 05/24/18 10:07 Dose: 40 mg Heparin Sodium (Porcine) (Heparin -) 5,000 unit SQ BID [facility] Last Admin: 05/24/18 10:07 Dose: 5,000 unit Dextrose/Sodium Chloride (D5-1/2ns -) 1,000 mls @ 75 mls/hr IV ASDIR [facility] Last Admin: 05/24/18 06:34 Dose: 75 mls/hr Levofloxacin (Levaquin 500 Mg Premixed Ivpb -) 500 mg in 100 mls @ 100 mls/hr IVPB HS [facility]; Protocol Last Admin: 05/23/18 23:14 Dose: 100 mls/hr Metronidazole (Flagyl 500mg Premixed Ivpb -) 500 mg in 100 mls @ 100 mls/hr IVPB TID [facility] Last Admin: 05/24/18 15:15 Dose: 100 mls/hr Insulin Aspart (Novolog Vial Sliding Scale -) 1 vial SQ ACHS [facility]; Protocol Last Admin: 05/24/18 12:07 Dose: Not Given Morphine Sulfate (Morphine Sulfate) 4 mg IVPUSH Q6H PRN PRN Reason: pain Last Admin: 05/24/18 15:15 Dose: 4 mg Ondansetron HCl (Zofran Injection) 4 mg IVPUSH Q6H PRN PRN Reason: NAUSEA AND/OR VOMITING Last Admin: 05/23/18 21:29 Dose: 4 mg - Objective Vital Signs: Vital Signs Temperature 98.9 F 05/24/18 09:00 Pulse Rate 83 05/24/18 09:00 Respiratory Rate 18 05/24/18 09:00 Blood Pressure 152/90 05/24/18 09:00 O2 Sat by Pulse Oximetry (%) 98 05/23/18 22:00 Labs: CBC, BMP 05/24/18 06:30 05/24/18 06:30 INR, PTT INR 1.39 (0.83-1.09) H 05/22/18 14:30 Problem List - Problems (1) Small bowel obstruction Code(s): K56.609 - UNSP INTESTNL OBST, UNSP TO PARTIAL VERSUS COMPLETE OBST (2) HTN (hypertension) Code(s): I10 - ESSENTIAL (PRIMARY) HYPERTENSION (3) Anemia Code(s): D64.9 - ANEMIA, UNSPECIFIED (4) Diabetes Code(s): E11.9 - TYPE 2 DIABETES MELLITUS WITHOUT COMPLICATIONS (5) Cirrhosis Code(s): K74.60 - UNSPECIFIED CIRRHOSIS OF LIVER Qualifiers: Hepatic cirrhosis type: alcoholic cirrhosis Ascites presence: with ascites Qualified Code(s): K70.31 - Alcoholic cirrhosis of liver with ascites (6) Morbid obesity Code(s): E66.01 - MORBID (SEVERE) OBESITY DUE TO EXCESS CALORIES
[2018-05-24] MEDS: ACETAMINOPHEN 1000 MG/100 ML VIAL (NON FORMULARY) IVPB PRN (19:59)
[2018-05-25] MEDS: INSULIN SLIDING SCALE (NOVOLOG) 1 VIAL SQ SCH ×3 (06:21→21:43)
--- NOTE | 2018-05-25 08:49 | PN ---
GI Progress Note Subjective: Patient states having one episode of vomiting last night with dark green colored vomitus. States he has not vomited since. He states his abdominal pain is getting better. States he is having bowel movements and has flatulence. Abdominal xray shows no free air, some retained stool in colon, some small air-filled loops of small bowel in left abdomen. - Objective Vital Signs: Vital Signs Temperature 98.4 F 05/25/18 05:00 Pulse Rate 71 05/25/18 05:00 Respiratory Rate 16 05/25/18 01:00 Blood Pressure 163/86 05/25/18 05:00 O2 Sat by Pulse Oximetry (%) 97 05/24/18 21:00 Constitutional: Well Nourished, No Distress, Calm Eyes: Yes: Conjunctiva Clear Cardiovascular: Yes: Regular Rate and Rhythm Respiratory: Yes: Regular, CTA Bilaterally Gastrointestinal Inspection: Yes: WNL ...Auscultate: Yes: Normoactive Bowel Sounds ...Palpate: Yes: Soft, Tenderness Musculoskeletal: Yes: WNL Extremities: Yes: WNL Edema: No Neurological: Yes: Alert, Oriented Labs: CBC, BMP 05/24/18 06:30 05/24/18 06:30 INR, PTT INR 1.39 (0.83-1.09) H 05/22/18 14:30 - ....Imaging X-ray: Report Reviewed (abdomen) Problem List - Problems (1) Abdominal pain Code(s): R10.9 - UNSPECIFIED ABDOMINAL PAIN (2) Small bowel obstruction Assessment/Plan: > Suggest NGT placement due to vomiting, patient refused NGT placement , if nausea/vomiting worsen will then place NGT Continue NPO status IVF hydration Code(s): K56.609 - UNSP INTESTNL OBST, UNSP TO PARTIAL VERSUS COMPLETE OBST
[2018-05-25] MEDS: FUROSEMIDE 40 MG/4 ML INJECTABLE VIAL IVPUSH SCH ×2 (09:50→09:55)
[2018-05-25] MEDS: HEPARIN NA (PORCINE) 5,000 UNITS/ML 1ML VIAL SQ SCH ×3 (09:50→21:44)
[2018-05-25] MEDS ORDERED: PT OWN MED DRAWER 7, Y5N ONE (09:52)
[2018-05-25] MEDS: ENALAPRIL MALEATE 10 MG TABLET (FP) PO SCH (09:55)
[2018-05-25] MEDS: ACETAMINOPHEN 1000 MG/100 ML VIAL (NON FORMULARY) IVPB PRN ×2 (09:55→17:02)
--- NOTE | 2018-05-25 11:13 | PN ---
Progress Note (short form) - Note Progress Note: PT reports still having mid abd pain. He feels hungry and passed flatus with a bowel movement yesterday. He did have a small amount of emesis overnight. Vital Signs Period Temp Pulse Resp BP Sys/[place] Pulse Ox Last 24 Hr 98.4 F-99.3 F 71-77 16-18 146-163/78-86 97 GEN: appears comfortable ABD: soft, non-distended, midline tenderness to palpation. No masses/rebound with palpation CBC, BMP 05/24/18 06:30 05/24/18 06:30 AXR: mild air filled small bowel loops in lower abd A/p: 47 yo male with h/o gastric bypass/ex lap with ROSALINDA, admitted with SBO. Now with bowel function/resolving SBO D/w Dr. Raines, diet advanced to clears and may continue to advance as tolerated Oob ambulate Limit narcotic use for pain control IF emesis/nausea resumes pt to remain npo
--- NOTE | 2018-05-25 12:26 | PN ---
Progress Note, Physician History of Present Illness: events noted patient now feels better - Current Medication List Current Medications: Active Medications Acetaminophen (Tylenol -) 650 mg PO Q6H PRN PRN Reason: FEVER Acetaminophen (Ofirmev Injection -) 1,000 mg IVPB Q8H PRN PRN Reason: FEVER/PAIN LEVEL 6-10 Last Admin: 05/25/18 09:55 Dose: 1,000 mg Enalapril Maleate (Vasotec -) 40 mg PO DAILY [facility] Last Admin: 05/25/18 09:55 Dose: 40 mg Furosemide (Lasix Injection -) 40 mg IVPUSH DAILY [facility] Last Admin: 05/25/18 09:55 Dose: 40 mg Heparin Sodium (Porcine) (Heparin -) 5,000 unit SQ BID [facility] Last Admin: 05/25/18 09:55 Dose: 5,000 unit Dextrose/Sodium Chloride (D5-1/2ns -) 1,000 mls @ 75 mls/hr IV ASDIR [facility] Last Admin: 05/24/18 06:34 Dose: 75 mls/hr Levofloxacin (Levaquin 500 Mg Premixed Ivpb -) 500 mg in 100 mls @ 100 mls/hr IVPB HS [facility]; Protocol Last Admin: 05/24/18 23:29 Dose: 100 mls/hr Metronidazole (Flagyl 500mg Premixed Ivpb -) 500 mg in 100 mls @ 100 mls/hr IVPB TID [facility] Last Admin: 05/25/18 06:18 Dose: 100 mls/hr Insulin Aspart (Novolog Vial Sliding Scale -) 1 vial SQ ACHS [facility]; Protocol Last Admin: 05/25/18 11:31 Dose: Not Given Morphine Sulfate (Morphine Sulfate) 4 mg IVPUSH Q6H PRN PRN Reason: pain Last Admin: 05/24/18 23:29 Dose: 4 mg Ondansetron HCl (Zofran Injection) 4 mg IVPUSH Q6H PRN PRN Reason: NAUSEA AND/OR VOMITING Last Admin: 05/23/18 21:29 Dose: 4 mg - Objective Vital Signs: Vital Signs Temperature 98.4 F 05/25/18 05:00 Pulse Rate 71 05/25/18 05:00 Respiratory Rate 16 05/25/18 01:00 Blood Pressure 163/86 05/25/18 05:00 O2 Sat by Pulse Oximetry (%) 97 05/24/18 21:00 Constitutional: Yes: No Distress, Calm, Obese Cardiovascular: Yes: Regular Rate and Rhythm Respiratory: Yes: Regular, CTA Bilaterally Gastrointestinal: Yes: Soft, Distention, Hypoactive Bowel Sounds Musculoskeletal: Yes: WNL Extremities: Yes: WNL Neurological: Yes: Alert, Oriented Psychiatric: Yes: Alert, Oriented Labs: CBC, BMP 05/24/18 06:30 05/24/18 06:30 INR, PTT INR 1.39 (0.83-1.09) H 05/22/18 14:30 - ....Imaging X-ray: Report Reviewed, Image Reviewed Assessment/Plan 47 y.o. male with PMH of Gastric sleeve in 2003, SBO s/p small bowel resection, Ex-lap with ROSALINDA, NIDDM, ETOH abuse with liver disease presenting with c/o abdominal pain x 3 days, multiple episodes of nonbloody vomiting and no BM x 2- 3 days with imaging consistent with SBO. Recent low grade fever noted. Fever SBO Alcoholic Liver disease DM s/p Gastric sleeve Hx of SBO s/p resection/ROSALINDA patient now has been afebrile plan will stop levaquin continue flagyl for now monitor rest as per the team
[2018-05-25] MEDS: ONDANSETRON 4 MG/2 ML VIAL IVPUSH PRN (16:35)
--- NOTE | 2018-05-25 16:47 | PN ---
Progress Note, Physician History of Present Illness: NO COMPLAIN - Current Medication List Current Medications: Active Medications Acetaminophen (Tylenol -) 650 mg PO Q6H PRN PRN Reason: FEVER Acetaminophen (Ofirmev Injection -) 1,000 mg IVPB Q8H PRN PRN Reason: FEVER/PAIN LEVEL 6-10 Last Admin: 05/25/18 09:55 Dose: 1,000 mg Enalapril Maleate (Vasotec -) 40 mg PO DAILY [facility] Last Admin: 05/25/18 09:55 Dose: 40 mg Furosemide (Lasix Injection -) 40 mg IVPUSH DAILY [facility] Last Admin: 05/25/18 09:55 Dose: 40 mg Heparin Sodium (Porcine) (Heparin -) 5,000 unit SQ BID [facility] Last Admin: 05/25/18 09:55 Dose: 5,000 unit Dextrose/Sodium Chloride (D5-1/2ns -) 1,000 mls @ 75 mls/hr IV ASDIR [facility] Last Admin: 05/24/18 06:34 Dose: 75 mls/hr Metronidazole (Flagyl 500mg Premixed Ivpb -) 500 mg in 100 mls @ 100 mls/hr IVPB TID [facility] Last Admin: 05/25/18 13:49 Dose: 100 mls/hr Insulin Aspart (Novolog Vial Sliding Scale -) 1 vial SQ ACHS [facility]; Protocol Last Admin: 05/25/18 11:31 Dose: Not Given Morphine Sulfate (Morphine Sulfate) 4 mg IVPUSH Q6H PRN PRN Reason: pain Last Admin: 05/24/18 23:29 Dose: 4 mg Ondansetron HCl (Zofran Injection) 4 mg IVPUSH Q6H PRN PRN Reason: NAUSEA AND/OR VOMITING Last Admin: 05/25/18 16:35 Dose: 4 mg - Objective Vital Signs: Vital Signs Temperature 98.8 F 05/25/18 15:35 Pulse Rate 72 05/25/18 15:35 Respiratory Rate 18 05/25/18 15:35 Blood Pressure 154/88 05/25/18 15:35 O2 Sat by Pulse Oximetry (%) 97 05/24/18 21:00 Constitutional: Yes: No Distress Eyes: Yes: Conjunctiva Clear HENT: Yes: Atraumatic Neck: Yes: Supple Cardiovascular: Yes: Regular Rate and Rhythm Respiratory: Yes: CTA Bilaterally Gastrointestinal: Yes: Normal Bowel Sounds Extremities: Yes: WNL Edema: No Peripheral Pulses WNL: Yes Neurological: Yes: Alert, Oriented Labs: CBC, BMP 05/24/18 06:30 05/24/18 06:30 INR, PTT INR 1.39 (0.83-1.09) H 05/22/18 14:30 Problem List - Problems (1) Diabetes Assessment/Plan: on clear liquid diet insulin/bgms Code(s): E11.9 - TYPE 2 DIABETES MELLITUS WITHOUT COMPLICATIONS (2) Small bowel obstruction Assessment/Plan: pt now on clear liquid diet prn pain meds on abx ...emperic per id Code(s): K56.609 - UNSP INTESTNL OBST, UNSP TO PARTIAL VERSUS COMPLETE OBST (3) Alcoholic cirrhosis of liver Code(s): K70.30 - ALCOHOLIC CIRRHOSIS OF LIVER WITHOUT ASCITES (4) HTN (hypertension) Assessment/Plan: monitor on meds Code(s): I10 - ESSENTIAL (PRIMARY) HYPERTENSION Assessment/Plan COVERING FOR DR FERNANDEZ TODAY
[2018-05-25] MEDS: DEXTROSE 5%-0.45% SALINE 1,000 ML IV SCH (21:44)
[2018-05-25] MEDS: morphine SULFATE 4 MG/ML VIAL IVPUSH PRN (21:45)
[2018-05-26] MEDS: ONDANSETRON 4 MG/2 ML VIAL IVPUSH PRN ×3 (05:58→22:10)
[2018-05-26] MEDS: INSULIN SLIDING SCALE (NOVOLOG) 1 VIAL SQ SCH ×5 (08:58→21:57)
[2018-05-26] MEDS: ENALAPRIL MALEATE 10 MG TABLET (FP) PO SCH (11:02)
[2018-05-26] MEDS: FUROSEMIDE 40 MG/4 ML INJECTABLE VIAL IVPUSH SCH (11:03)
[2018-05-26] MEDS: HEPARIN NA (PORCINE) 5,000 UNITS/ML 1ML VIAL SQ SCH ×2 (11:03→22:00)
[2018-05-26] MEDS ORDERED: PT OWN MED DRAWER 7, Y5N ONE (11:06)
[2018-05-26] MEDS: ACETAMINOPHEN 1000 MG/100 ML VIAL (NON FORMULARY) IVPB PRN ×2 (11:10→20:02)
[2018-05-26] MEDS: DEXTROSE 5%-0.45% SALINE 1,000 ML IV SCH (12:46)
--- NOTE | 2018-05-26 13:45 | PN ---
Progress Note, Physician History of Present Illness: Pt states he feels better. No episode of vomiting today, had normal BM. Pain is controlled. Tolerating current diet. - Current Medication List Current Medications: Active Medications Acetaminophen (Tylenol -) 650 mg PO Q6H PRN PRN Reason: FEVER Acetaminophen (Ofirmev Injection -) 1,000 mg IVPB Q8H PRN PRN Reason: FEVER/PAIN LEVEL 6-10 Last Admin: 05/26/18 11:10 Dose: 1,000 mg Enalapril Maleate (Vasotec -) 40 mg PO DAILY [facility] Last Admin: 05/26/18 11:02 Dose: 40 mg Furosemide (Lasix Injection -) 40 mg IVPUSH DAILY [facility] Last Admin: 05/26/18 11:03 Dose: 40 mg Heparin Sodium (Porcine) (Heparin -) 5,000 unit SQ BID [facility] Last Admin: 05/26/18 11:03 Dose: 5,000 unit Dextrose/Sodium Chloride (D5-1/2ns -) 1,000 mls @ 75 mls/hr IV ASDIR [facility] Last Admin: 05/26/18 12:46 Dose: 75 mls/hr Metronidazole (Flagyl 500mg Premixed Ivpb -) 500 mg in 100 mls @ 100 mls/hr IVPB TID [facility] Last Admin: 05/26/18 05:58 Dose: 100 mls/hr Insulin Aspart (Novolog Vial Sliding Scale -) 1 vial SQ ACHS [facility]; Protocol Last Admin: 05/26/18 11:56 Dose: Not Given Ondansetron HCl (Zofran Injection) 4 mg IVPUSH Q6H PRN PRN Reason: NAUSEA AND/OR VOMITING Last Admin: 05/26/18 05:58 Dose: 4 mg - Objective Vital Signs: Vital Signs Temperature 98.4 F 05/26/18 13:34 Pulse Rate 80 05/26/18 13:34 Respiratory Rate 21 H 05/26/18 05:47 Blood Pressure 157/99 05/26/18 13:34 O2 Sat by Pulse Oximetry (%) 97 05/25/18 22:00 Constitutional: Yes: No Distress, Calm Cardiovascular: Yes: Regular Rate and Rhythm Respiratory: Yes: Regular Gastrointestinal: Yes: Soft, Hypoactive Bowel Sounds Neurological: Yes: Alert, Oriented Labs: CBC, BMP 05/24/18 06:30 05/24/18 06:30 INR, PTT INR 1.39 (0.83-1.09) H 05/22/18 14:30 Microbiology 05/24/18 06:15 Blood - Peripheral Venous Blood Culture - Preliminary NO GROWTH OBTAINED AFTER 48 HOURS, INCUBATION TO CONTINUE FOR 3 DAYS. 05/24/18 06:30 Blood - Peripheral Venous Blood Culture - Preliminary NO GROWTH OBTAINED AFTER 48 HOURS, INCUBATION TO CONTINUE FOR 3 DAYS. Assessment/Plan Fever SBO - resolving Alcoholic Liver disease DM s/p Gastric sleeve Hx of SBO s/p resection/ROSALINDA -- Levaquin d/c'd, continue Flagyl for now -- Pt afebrile, no recent vomiting, having BMs -- surgery following
--- NOTE | 2018-05-26 15:33 | PN ---
Progress Note, Physician - Current Medication List Current Medications: Active Medications Acetaminophen (Tylenol -) 650 mg PO Q6H PRN PRN Reason: FEVER Acetaminophen (Ofirmev Injection -) 1,000 mg IVPB Q8H PRN PRN Reason: FEVER/PAIN LEVEL 6-10 Last Admin: 05/26/18 11:10 Dose: 1,000 mg Enalapril Maleate (Vasotec -) 40 mg PO DAILY [facility] Last Admin: 05/26/18 11:02 Dose: 40 mg Furosemide (Lasix Injection -) 40 mg IVPUSH DAILY [facility] Last Admin: 05/26/18 11:03 Dose: 40 mg Heparin Sodium (Porcine) (Heparin -) 5,000 unit SQ BID [facility] Last Admin: 05/26/18 11:03 Dose: 5,000 unit Dextrose/Sodium Chloride (D5-1/2ns -) 1,000 mls @ 75 mls/hr IV ASDIR [facility] Last Admin: 05/26/18 12:46 Dose: 75 mls/hr Metronidazole (Flagyl 500mg Premixed Ivpb -) 500 mg in 100 mls @ 100 mls/hr IVPB TID [facility] Last Admin: 05/26/18 15:02 Dose: 100 mls/hr Insulin Aspart (Novolog Vial Sliding Scale -) 1 vial SQ ACHS [facility]; Protocol Last Admin: 05/26/18 11:56 Dose: Not Given Ondansetron HCl (Zofran Injection) 4 mg IVPUSH Q6H PRN PRN Reason: NAUSEA AND/OR VOMITING Last Admin: 05/26/18 05:58 Dose: 4 mg - Objective Vital Signs: Vital Signs Temperature 98.4 F 05/26/18 13:34 Pulse Rate 80 05/26/18 13:34 Respiratory Rate 21 H 05/26/18 05:47 Blood Pressure 157/99 05/26/18 13:34 O2 Sat by Pulse Oximetry (%) 97 05/25/18 22:00 Labs: CBC, BMP 05/24/18 06:30 05/24/18 06:30 INR, PTT INR 1.39 (0.83-1.09) H 05/22/18 14:30 Problem List - Problems (1) Small bowel obstruction Code(s): K56.609 - UNSP INTESTNL OBST, UNSP TO PARTIAL VERSUS COMPLETE OBST (2) HTN (hypertension) Code(s): I10 - ESSENTIAL (PRIMARY) HYPERTENSION (3) Anemia Code(s): D64.9 - ANEMIA, UNSPECIFIED (4) Diabetes Code(s): E11.9 - TYPE 2 DIABETES MELLITUS WITHOUT COMPLICATIONS (5) Cirrhosis Code(s): K74.60 - UNSPECIFIED CIRRHOSIS OF LIVER Qualifiers: Hepatic cirrhosis type: alcoholic cirrhosis Ascites presence: with ascites Qualified Code(s): K70.31 - Alcoholic cirrhosis of liver with ascites (6) Morbid obesity Code(s): E66.01 - MORBID (SEVERE) OBESITY DUE TO EXCESS CALORIES
[2018-05-26 17:09] LABS: CHOLESTEROL 218 mg/dL (50-200); HDL CHOLESTEROL 71 mg/dL (40-60); TRIGLYCERIDES 90 mg/dL (0-150)
[2018-05-27] MEDS: DEXTROSE 5%-0.45% SALINE 1,000 ML IV SCH ×3 (03:12→17:54)
[2018-05-27] MEDS: INSULIN SLIDING SCALE (NOVOLOG) 1 VIAL SQ SCH ×4 (06:28→21:35)
[2018-05-27 07:10] LABS: BASO % 0.7 % (0-2.0); EOS % 1.4 % (0-4.5); HEMATOCRIT 31.6 % (35.4-49); HEMOGLOBIN 10.8 GM/dL (11.7-16.9); LYMPH % 30.6 % (8-40); MCH 30.5 pg (25.7-33.7); MCHC 34.1 g/dl (32.0-35.9); MEAN CELL VOLUME 89.5 fl (80-96); MEAN PLT VOLUME 9.9 fl (7.5-11.1); MONO % 10.8 % (3.8-10.2); NEUT % 56.5 % (42.8-82.8); PLATELET COUNT 106 K/MM3 (134-434); RBC 3.53 M/mm3 (4.00-5.60); RDW 13.6 % (11.9-15.9); WHITE BLOOD COUNT 7.2 K/mm3 (4.0-10.0)
[2018-05-27 07:56] LABS: ALBUMIN 3.4 g/dl (3.4-5.0); ALK PHOS 93 U/L (45-117); ANION GAP 10 MMOL/L (8-16); BILIRUBIN,TOTAL 1.7 mg/dL (0.2-1); BLOOD UREA NITROGEN 21 mg/dL (7-18); CALCIUM 8.7 mg/dL (8.5-10.1); CHLORIDE 100 mmol/L (98-107); CO2 27 mmol/L (21-32); CREATININE 1.4 mg/dL (0.55-1.3); GLUCOSE,RANDOM 124 mg/dL (74-106); POTASSIUM 3.1 mmol/L (3.5-5.1); SGOT/AST 34 U/L (15-37); SGPT/ALT 22 U/L (13-61); SODIUM 137 mmol/L (136-145); TOT PROT 8.2 g/dl (6.4-8.2)
[2018-05-27] MEDS ORDERED: PT OWN MED DRAWER 7, Y5N ONE (09:15)
[2018-05-27] MEDS: FUROSEMIDE 40 MG/4 ML INJECTABLE VIAL IVPUSH SCH (09:17)
[2018-05-27] MEDS: HEPARIN NA (PORCINE) 5,000 UNITS/ML 1ML VIAL SQ SCH ×2 (09:17→21:38)
[2018-05-27] MEDS: ONDANSETRON 4 MG/2 ML VIAL IVPUSH PRN ×2 (09:17→19:53)
[2018-05-27] MEDS: ENALAPRIL MALEATE 10 MG TABLET (FP) PO SCH (09:29)
--- NOTE | 2018-05-27 13:33 | PN ---
Progress Note, Physician History of Present Illness: Pt with low grade fever last night Tmax 100.4F. Episode of vomiting today, currently NPO. No abd tenderness, had normal BM today. No other specific complaints. - Current Medication List Current Medications: Active Medications Acetaminophen (Tylenol -) 650 mg PO Q6H PRN PRN Reason: FEVER Acetaminophen (Ofirmev Injection -) 1,000 mg IVPB Q8H PRN PRN Reason: FEVER/PAIN LEVEL 6-10 Last Admin: 05/26/18 20:02 Dose: 1,000 mg Enalapril Maleate (Vasotec -) 40 mg PO DAILY [facility] Last Admin: 05/27/18 09:29 Dose: 40 mg Furosemide (Lasix Injection -) 40 mg IVPUSH DAILY [facility] Last Admin: 05/27/18 09:17 Dose: 40 mg Heparin Sodium (Porcine) (Heparin -) 5,000 unit SQ BID [facility] Last Admin: 05/27/18 09:17 Dose: 5,000 unit Dextrose/Sodium Chloride (D5-1/2ns -) 1,000 mls @ 75 mls/hr IV ASDIR [facility] Last Admin: 05/27/18 03:12 Dose: 75 mls/hr Metronidazole (Flagyl 500mg Premixed Ivpb -) 500 mg in 100 mls @ 100 mls/hr IVPB TID [facility] Last Admin: 05/27/18 13:25 Dose: 100 mls/hr Insulin Aspart (Novolog Vial Sliding Scale -) 1 vial SQ ACHS [facility]; Protocol Last Admin: 05/27/18 12:10 Dose: Not Given Ondansetron HCl (Zofran Injection) 4 mg IVPUSH Q6H PRN PRN Reason: NAUSEA AND/OR VOMITING Last Admin: 05/27/18 09:17 Dose: 4 mg - Objective Vital Signs: Vital Signs Temperature 98.3 F 05/27/18 09:17 Pulse Rate 83 05/27/18 09:17 Respiratory Rate 20 05/27/18 09:17 Blood Pressure 150/78 05/27/18 09:17 O2 Sat by Pulse Oximetry (%) 97 05/26/18 20:40 Constitutional: Yes: No Distress, Calm Cardiovascular: Yes: Regular Rate and Rhythm Respiratory: Yes: CTA Bilaterally Gastrointestinal: Yes: Normal Bowel Sounds, Soft Genitourinary: Yes: WNL Integumentary: Yes: WNL Neurological: Yes: Alert Labs: CBC, BMP 05/27/18 06:25 05/27/18 06:25 INR, PTT INR 1.39 (0.83-1.09) H 05/22/18 14:30 Assessment/Plan Fever SBO Alcoholic Liver disease DM s/p Gastric sleeve Hx of SBO s/p resection/ROSALINDA -- Pt with low grade fever last night, episode of vomiting today --Continue antibiotics for now, if fever persists will restart Levaquin -- surgery following
--- NOTE | 2018-05-27 16:29 | PN ---
Progress Note, Physician - Current Medication List Current Medications: Active Medications Acetaminophen (Tylenol -) 650 mg PO Q6H PRN PRN Reason: FEVER Acetaminophen (Ofirmev Injection -) 1,000 mg IVPB Q8H PRN PRN Reason: FEVER/PAIN LEVEL 6-10 Last Admin: 05/26/18 20:02 Dose: 1,000 mg Enalapril Maleate (Vasotec -) 40 mg PO DAILY [facility] Last Admin: 05/27/18 09:29 Dose: 40 mg Furosemide (Lasix Injection -) 40 mg IVPUSH DAILY [facility] Last Admin: 05/27/18 09:17 Dose: 40 mg Heparin Sodium (Porcine) (Heparin -) 5,000 unit SQ BID [facility] Last Admin: 05/27/18 09:17 Dose: 5,000 unit Dextrose/Sodium Chloride (D5-1/2ns -) 1,000 mls @ 75 mls/hr IV ASDIR [facility] Last Admin: 05/27/18 03:12 Dose: 75 mls/hr Metronidazole (Flagyl 500mg Premixed Ivpb -) 500 mg in 100 mls @ 100 mls/hr IVPB TID [facility] Last Admin: 05/27/18 13:25 Dose: 100 mls/hr Insulin Aspart (Novolog Vial Sliding Scale -) 1 vial SQ ACHS [facility]; Protocol Last Admin: 05/27/18 16:22 Dose: Not Given Ondansetron HCl (Zofran Injection) 4 mg IVPUSH Q6H PRN PRN Reason: NAUSEA AND/OR VOMITING Last Admin: 05/27/18 09:17 Dose: 4 mg - Objective Vital Signs: Vital Signs Temperature 98.9 F 05/27/18 14:40 Pulse Rate 80 05/27/18 14:40 Respiratory Rate 20 05/27/18 09:17 Blood Pressure 150/81 05/27/18 14:40 O2 Sat by Pulse Oximetry (%) 97 05/26/18 20:40 Labs: CBC, BMP 05/27/18 06:25 05/27/18 06:25 INR, PTT INR 1.39 (0.83-1.09) H 05/22/18 14:30 Problem List - Problems (1) Small bowel obstruction Code(s): K56.609 - UNSP INTESTNL OBST, UNSP TO PARTIAL VERSUS COMPLETE OBST (2) HTN (hypertension) Code(s): I10 - ESSENTIAL (PRIMARY) HYPERTENSION (3) Anemia Code(s): D64.9 - ANEMIA, UNSPECIFIED (4) Diabetes Code(s): E11.9 - TYPE 2 DIABETES MELLITUS WITHOUT COMPLICATIONS (5) Cirrhosis Code(s): K74.60 - UNSPECIFIED CIRRHOSIS OF LIVER Qualifiers: Hepatic cirrhosis type: alcoholic cirrhosis Ascites presence: with ascites Qualified Code(s): K70.31 - Alcoholic cirrhosis of liver with ascites (6) Morbid obesity Code(s): E66.01 - MORBID (SEVERE) OBESITY DUE TO EXCESS CALORIES
[2018-05-27] MEDS: KCL 10 MEQ IVPB 10 MEQ/100 ML INFUS.BAG IVPB SCH ×3 (17:07→19:00)
--- NOTE | 2018-05-27 18:19 | PN ---
Progress Note, Physician Chief Complaint: Pt A&Ox3;+ abdominal discomfort; denies chest pain or dyspnea. History of Present Illness: The patient is a 47 year old black male with a PMH of Gastric Sleeve (prior to the sleeve, he weighed 395 lbs; has weighed as little as 250 lbs since, but increased again to present 295 lbs),hx SBO, NIDDM (recently stopped insulin pump after weight loss), and ETOH Abuse (? liver cirrhosis) presents to the ED c /o 2 day h/o abdominal pain. States the pain is "punching" 10/10, constant, localized to his central abdomen. Three episodes of NBNB emesis today. Last PO intake was an Egg McMuffin yesterday morning. H/o recent endoscopy with Dr. Silverio, uncertain of results. Has been taking Percocet for his pain. The patient denies chest pain, shortness of breath, fevers/chills, dysuria/ hematuria, numbness/tingling. Allergy: Penicillin Surgical: Gastric sleeve, SBO Social: former smoker, h/o ETOH abuse PMD: Dr. Aman Cantu As per EMR, patient was last evaluated in our ED in 03/25 for B/L LE edema at which time he was found to have ascites 2/2 to alcoholic hepatitis superimposed on liver cirrhosis. - Current Medication List Current Medications: Active Medications Acetaminophen (Tylenol -) 650 mg PO Q6H PRN PRN Reason: FEVER Acetaminophen (Ofirmev Injection -) 1,000 mg IVPB Q8H PRN PRN Reason: FEVER/PAIN LEVEL 6-10 Last Admin: 05/26/18 20:02 Dose: 1,000 mg Enalapril Maleate (Vasotec -) 40 mg PO DAILY [facility] Last Admin: 05/27/18 09:29 Dose: 40 mg Furosemide (Lasix Injection -) 40 mg IVPUSH DAILY [facility] Last Admin: 05/27/18 09:17 Dose: 40 mg Heparin Sodium (Porcine) (Heparin -) 5,000 unit SQ BID [facility] Last Admin: 05/27/18 09:17 Dose: 5,000 unit Dextrose/Sodium Chloride (D5-1/2ns -) 1,000 mls @ 75 mls/hr IV ASDIR [facility] Last Admin: 05/27/18 17:54 Dose: 75 mls/hr Metronidazole (Flagyl 500mg Premixed Ivpb -) 500 mg in 100 mls @ 100 mls/hr IVPB TID [facility] Last Admin: 05/27/18 13:25 Dose: 100 mls/hr Potassium Chloride (Potassium Chloride 10 Meq Premix Ivpb -) 10 meq in 100 mls @ 100 mls/hr IVPB Q60M [facility] Stop: 05/27/18 19:44 Last Admin: 05/27/18 17:54 Dose: 100 mls/hr Insulin Aspart (Novolog Vial Sliding Scale -) 1 vial SQ ACHS [facility]; Protocol Last Admin: 05/27/18 16:22 Dose: Not Given Ondansetron HCl (Zofran Injection) 4 mg IVPUSH Q6H PRN PRN Reason: NAUSEA AND/OR VOMITING Last Admin: 05/27/18 09:17 Dose: 4 mg - Objective Vital Signs: Vital Signs Temperature 98.9 F 05/27/18 14:40 Pulse Rate 80 05/27/18 14:40 Respiratory Rate 20 05/27/18 09:17 Blood Pressure 150/81 05/27/18 14:40 O2 Sat by Pulse Oximetry (%) 97 05/26/18 20:40 Constitutional: Yes: Anxious Eyes: Yes: WNL HENT: Yes: WNL Neck: Yes: WNL Cardiovascular: Yes: Regular Rate and Rhythm, S1, S2, S4 Respiratory: Yes: WNL Gastrointestinal: Yes: Soft. No: Tenderness ...Rectal Exam: Yes: Deferred Genitourinary: No: Anuria Breast(s): Yes: WNL Musculoskeletal: Yes: WNL Extremities: Yes: WNL Edema: No Peripheral Pulses WNL: Yes Integumentary: Yes: WNL Neurological: Yes: WNL ...Motor Strength: WNL Psychiatric: Yes: WNL Labs: CBC, BMP 05/27/18 06:25 05/27/18 06:25 INR, PTT INR 1.39 (0.83-1.09) H 05/22/18 14:30 Problem List - Problems (1) Obesity Code(s): E66.9 - OBESITY, UNSPECIFIED (2) Abdominal pain Assessment/Plan: hx SBO. Remains uncomfortable, with nausea, abdominal discomfort. Hx recent endoscopy. F/u with surgeon, GI. Code(s): R10.9 - UNSPECIFIED ABDOMINAL PAIN (3) Diabetes Code(s): E11.9 - TYPE 2 DIABETES MELLITUS WITHOUT COMPLICATIONS (4) HTN (hypertension) Assessment/Plan: on enalapril; furosemide prn. Code(s): I10 - ESSENTIAL (PRIMARY) HYPERTENSION (5) Cirrhosis Code(s): K74.60 - UNSPECIFIED CIRRHOSIS OF LIVER Qualifiers: Hepatic cirrhosis type: alcoholic cirrhosis Ascites presence: with ascites Qualified Code(s): K70.31 - Alcoholic cirrhosis of liver with ascites (6) Hyperlipidemia Code(s): E78.5 - HYPERLIPIDEMIA, UNSPECIFIED (7) (HFpEF) heart failure with preserved ejection fraction Assessment/Plan: Consider beta dennise (mildly dilated LV; normal LVEF). On ACEI. Code(s): I50.30 - UNSPECIFIED DIASTOLIC (CONGESTIVE) HEART FAILURE
--- NOTE | 2018-05-27 18:28 | PN ---
Progress Note, Physician Chief Complaint: Pt A&Ox3; very hungry; does not want NG tube because of pain when he had one placed on another admission. History of Present Illness: The patient is a 47 year old black male with a PMH of Gastric Sleeve (prior to the sleeve, he weighed 395 lbs; has weighed as little as 250 lbs since, but increased again to present 295 lbs),hx SBO, NIDDM (recently stopped insulin pump after weight loss), and ETOH Abuse (? liver cirrhosis) presents to the ED c /o 2 day h/o abdominal pain. States the pain is "punching" 10/10, constant, localized to his central abdomen. Three episodes of NBNB emesis today. Last PO intake was an Egg McMuffin yesterday morning. H/o recent endoscopy with Dr. Silverio, uncertain of results. Has been taking Percocet for his pain. The patient denies chest pain, shortness of breath, fevers/chills, dysuria/ hematuria, numbness/tingling. Allergy: Penicillin Surgical: Gastric sleeve, SBO Social: former smoker, h/o ETOH abuse PMD: Dr. Aman Cantu As per EMR, patient was last evaluated in our ED in 03/25 for B/L LE edema at which time he was found to have ascites 2/2 to alcoholic hepatitis superimposed on liver cirrhosis. - Current Medication List Current Medications: Active Medications Acetaminophen (Tylenol -) 650 mg PO Q6H PRN PRN Reason: FEVER Acetaminophen (Ofirmev Injection -) 1,000 mg IVPB Q8H PRN PRN Reason: FEVER/PAIN LEVEL 6-10 Last Admin: 05/26/18 20:02 Dose: 1,000 mg Enalapril Maleate (Vasotec -) 40 mg PO DAILY [facility] Last Admin: 05/27/18 09:29 Dose: 40 mg Furosemide (Lasix Injection -) 40 mg IVPUSH DAILY [facility] Last Admin: 05/27/18 09:17 Dose: 40 mg Heparin Sodium (Porcine) (Heparin -) 5,000 unit SQ BID [facility] Last Admin: 05/27/18 09:17 Dose: 5,000 unit Dextrose/Sodium Chloride (D5-1/2ns -) 1,000 mls @ 75 mls/hr IV ASDIR [facility] Last Admin: 05/27/18 17:54 Dose: 75 mls/hr Metronidazole (Flagyl 500mg Premixed Ivpb -) 500 mg in 100 mls @ 100 mls/hr IVPB TID [facility] Last Admin: 05/27/18 13:25 Dose: 100 mls/hr Potassium Chloride (Potassium Chloride 10 Meq Premix Ivpb -) 10 meq in 100 mls @ 100 mls/hr IVPB Q60M [facility] Stop: 05/27/18 19:44 Last Admin: 05/27/18 17:54 Dose: 100 mls/hr Insulin Aspart (Novolog Vial Sliding Scale -) 1 vial SQ ACHS [facility]; Protocol Last Admin: 05/27/18 16:22 Dose: Not Given Ondansetron HCl (Zofran Injection) 4 mg IVPUSH Q6H PRN PRN Reason: NAUSEA AND/OR VOMITING Last Admin: 05/27/18 09:17 Dose: 4 mg - Objective Vital Signs: Vital Signs Temperature 98.9 F 05/27/18 14:40 Pulse Rate 80 05/27/18 14:40 Respiratory Rate 20 05/27/18 09:17 Blood Pressure 150/81 05/27/18 14:40 O2 Sat by Pulse Oximetry (%) 97 05/26/18 20:40 Constitutional: Yes: Anxious Eyes: Yes: WNL HENT: Yes: WNL Neck: Yes: WNL Cardiovascular: Yes: WNL, S1, S2, S4 Respiratory: Yes: WNL Gastrointestinal: Yes: Soft, Tenderness ...Rectal Exam: Yes: Deferred Genitourinary: No: Anuria Breast(s): Yes: WNL Musculoskeletal: Yes: WNL Extremities: Yes: WNL Edema: No Peripheral Pulses WNL: Yes Integumentary: Yes: WNL Neurological: Yes: WNL ...Motor Strength: WNL Psychiatric: Yes: WNL Labs: CBC, BMP 05/27/18 06:25 05/27/18 06:25 INR, PTT INR 1.39 (0.83-1.09) H 05/22/18 14:30 Abnormal Lab Results 05/27/18 05/27/18 06:25 06:25 RBC 3.53 L Hgb 10.8 L Hct 31.6 L Plt Count 106 L D Monocytes % 10.8 H Potassium 3.1 L BUN 21 H Creatinine 1.4 H Random Glucose 124 H Total Bilirubin 1.7 H Problem List - Problems (1) Hypokalemia Code(s): E87.6 - HYPOKALEMIA (2) Hypomagnesemia Assessment/Plan: replete electrolytes; f/u levels. Hold furosemide (no JVD; no respiratory distress). Code(s): E83.42 - HYPOMAGNESEMIA (3) (HFpEF) heart failure with preserved ejection fraction Assessment/Plan: Consider beta dennise (mildly dilated LV; normal LVEF). On ACEI. Code(s): I50.30 - UNSPECIFIED DIASTOLIC (CONGESTIVE) HEART FAILURE (4) Abdominal pain Assessment/Plan: hx SBO. Remains uncomfortable, with nausea, abdominal discomfort. Refusing NGT. Hx recent endoscopy. F/u with surgeon, GI. Code(s): R10.9 - UNSPECIFIED ABDOMINAL PAIN (5) Diabetes Assessment/Plan: On Novolog. Elevated glucose. F/u HGBA1c. Aggressive lipid control. Code(s): E11.9 - TYPE 2 DIABETES MELLITUS WITHOUT COMPLICATIONS (6) Hyperlipidemia Assessment/Plan: Elevated LDL; hx DM, HTN. Start statin, unless contraindicaitons exist. Code(s): E78.5 - HYPERLIPIDEMIA, UNSPECIFIED (7) Obesity Assessment/Plan: s/p gastric sleeve. Code(s): E66.9 - OBESITY, UNSPECIFIED (8) Alcoholic cirrhosis of liver Assessment/Plan: normal LFTs. F/u with GI. Code(s): K70.30 - ALCOHOLIC CIRRHOSIS OF LIVER WITHOUT ASCITES (9) HTN (hypertension) Assessment/Plan: on enalapril; furosemide held due to stable CHF, reduced electrolytes. Code(s): I10 - ESSENTIAL (PRIMARY) HYPERTENSION
[2018-05-27] MEDS: ACETAMINOPHEN 1000 MG/100 ML VIAL (NON FORMULARY) IVPB PRN (18:34)
[2018-05-28] MEDS: DEXTROSE 5%-0.45% SALINE 1,000 ML IV SCH ×2 (02:30→05:47)
[2018-05-28] MEDS: ONDANSETRON 4 MG/2 ML VIAL IVPUSH PRN ×2 (05:48→11:55)
[2018-05-28] MEDS: INSULIN SLIDING SCALE (NOVOLOG) 1 VIAL SQ SCH ×4 (06:04→20:59)
[2018-05-28 07:30] LABS: BASO % 0.9 % (0-2.0); EOS % 2.2 % (0-4.5); HEMATOCRIT 32.3 % (35.4-49); HEMOGLOBIN 11.2 GM/dL (11.7-16.9); LYMPH % 31.6 % (8-40); MCH 30.9 pg (25.7-33.7); MCHC 34.7 g/dl (32.0-35.9); MEAN CELL VOLUME 89.2 fl (80-96); MEAN PLT VOLUME 9.6 fl (7.5-11.1); MONO % 11.2 % (3.8-10.2); NEUT % 54.1 % (42.8-82.8); PLATELET COUNT 116 K/MM3 (134-434); RBC 3.63 M/mm3 (4.00-5.60); RDW 13.6 % (11.9-15.9); WHITE BLOOD COUNT 9.1 K/mm3 (4.0-10.0)
[2018-05-28 08:26] LABS: ALBUMIN 3.6 g/dl (3.4-5.0); ALK PHOS 92 U/L (45-117); ANION GAP 9 MMOL/L (8-16); BILIRUBIN,TOTAL 1.6 mg/dL (0.2-1); BLOOD UREA NITROGEN 28 mg/dL (7-18); CHLORIDE 98 mmol/L (98-107); CO2 29 mmol/L (21-32); CREATININE 1.8 mg/dL (0.55-1.3); GLUCOSE,RANDOM 108 mg/dL (74-106); POTASSIUM 3.2 mmol/L (3.5-5.1); SGOT/AST 39 U/L (15-37); SGPT/ALT 25 U/L (13-61); SODIUM 136 mmol/L (136-145); TOT PROT 8.5 g/dl (6.4-8.2)
--- NOTE | 2018-05-28 09:07 | PN ---
GI Progress Note Subjective: Patient states having 3 episodes of nausea and vomiting with dark green colored vomitus yesterday. NPO status maintained. States having regular bowel movement. Denies abdominal pain. - Objective Vital Signs: Vital Signs Temperature 99.0 F 05/28/18 05:58 Pulse Rate 84 05/28/18 05:58 Respiratory Rate 20 05/28/18 05:58 Blood Pressure 156/80 05/28/18 05:58 O2 Sat by Pulse Oximetry (%) 97 05/26/18 20:40 Constitutional: Well Nourished, No Distress, Calm Eyes: Yes: Conjunctiva Clear Neck: Yes: Supple Cardiovascular: Yes: Regular Rate and Rhythm Respiratory: Yes: Regular, CTA Bilaterally Gastrointestinal Inspection: Yes: WNL ...Auscultate: Yes: Normoactive Bowel Sounds ...Palpate: Yes: Soft ...Percussion: Yes: Tympanitic Neurological: Yes: Alert Labs: CBC, BMP 05/28/18 07:00 05/28/18 07:00 INR, PTT INR 1.39 (0.83-1.09) H 05/22/18 14:30 Problem List - Problems (1) Abdominal pain Assessment/Plan: R>pending Abdomen/Pelvis CT scan with contrast Code(s): R10.9 - UNSPECIFIED ABDOMINAL PAIN (2) Small bowel obstruction Assessment/Plan: R>continue antibiotics patient is considering possibility of NGT placement surgery on board Code(s): K56.609 - UNSP INTESTNL OBST, UNSP TO PARTIAL VERSUS COMPLETE OBST (3) Nausea and vomiting Assessment/Plan: R>NPO status zofran PRN Code(s): R11.2 - NAUSEA WITH VOMITING, UNSPECIFIED
--- NOTE | 2018-05-28 09:09 | PN ---
Progress Note, Physician Chief Complaint: still vomiting Denies chest pain or SOB Repeat CT planned - Current Medication List Current Medications: Active Medications Acetaminophen (Tylenol -) 650 mg PO Q6H PRN PRN Reason: FEVER Acetaminophen (Ofirmev Injection -) 1,000 mg IVPB Q8H PRN PRN Reason: FEVER/PAIN LEVEL 6-10 Last Admin: 05/27/18 18:34 Dose: 1,000 mg Enalapril Maleate (Vasotec -) 40 mg PO DAILY [facility] Last Admin: 05/27/18 09:29 Dose: 40 mg Heparin Sodium (Porcine) (Heparin -) 5,000 unit SQ BID [facility] Last Admin: 05/27/18 21:38 Dose: 5,000 unit Dextrose/Sodium Chloride (D5-1/2ns -) 1,000 mls @ 75 mls/hr IV ASDIR [facility] Last Admin: 05/28/18 05:47 Dose: 75 mls/hr Metronidazole (Flagyl 500mg Premixed Ivpb -) 500 mg in 100 mls @ 100 mls/hr IVPB TID [facility] Last Admin: 05/28/18 05:47 Dose: 100 mls/hr Insulin Aspart (Novolog Vial Sliding Scale -) 1 vial SQ ACHS [facility]; Protocol Last Admin: 05/28/18 06:04 Dose: Not Given Ondansetron HCl (Zofran Injection) 4 mg IVPUSH Q6H PRN PRN Reason: NAUSEA AND/OR VOMITING Last Admin: 05/28/18 05:48 Dose: 4 mg - Objective Vital Signs: Vital Signs Temperature 99.0 F 05/28/18 05:58 Pulse Rate 84 05/28/18 05:58 Respiratory Rate 20 05/28/18 05:58 Blood Pressure 156/80 05/28/18 05:58 O2 Sat by Pulse Oximetry (%) 97 05/26/18 20:40 Constitutional: Yes: No Distress, Calm Eyes: Yes: Conjunctiva Clear Cardiovascular: Yes: Regular Rate and Rhythm Respiratory: Yes: CTA Bilaterally Gastrointestinal: Yes: Other (no rebound or guarding) Edema: No Neurological: Yes: Alert, Oriented Labs: CBC, BMP 05/28/18 07:00 05/28/18 07:00 INR, PTT INR 1.39 (0.83-1.09) H 05/22/18 14:30 Problem List - Problems (1) Small bowel obstruction Code(s): K56.609 - UNSP INTESTNL OBST, UNSP TO PARTIAL VERSUS COMPLETE OBST (2) Alcoholic cirrhosis of liver Code(s): K70.30 - ALCOHOLIC CIRRHOSIS OF LIVER WITHOUT ASCITES (3) Cirrhosis Code(s): K74.60 - UNSPECIFIED CIRRHOSIS OF LIVER Qualifiers: Hepatic cirrhosis type: alcoholic cirrhosis Ascites presence: with ascites Qualified Code(s): K70.31 - Alcoholic cirrhosis of liver with ascites (4) Thrombocytopenia Code(s): D69.6 - THROMBOCYTOPENIA, UNSPECIFIED Assessment/Plan IMP: Small bowel obstruction ETOH cirrhosis Thrombocytopenia Acute renal failure REC: 1. Further Rx as per surgery. 2. Off Lasix, hold ARB. Replete lytes 3. There are no cardiac contraindications to proceed with bowel surgery if deemed necessary as this would be considered urgent. Patient has no anginal symptoms, no , no evidence of decompensated CHF as is in normal sinus rhythm.
[2018-05-28] MEDS: HEPARIN NA (PORCINE) 5,000 UNITS/ML 1ML VIAL SQ SCH ×2 (09:58→20:59)
--- NOTE | 2018-05-28 10:37 | PN ---
Progress Note (short form) - Note Progress Note: 47yo M with h/o SBO seen and examined at bedside. Pt had couple episodes of vomiting overnight with bilious vomit. Pt states that he had BM yesterday. Denies fever/chills. Last Vital Signs Temp Pulse Resp BP Pulse Ox 99.0 F 84 20 156/80 97 05/28/18 05:58 05/28/18 05:58 05/28/18 05:58 05/28/18 05:58 05/26/18 20:40 CBC, BMP 05/28/18 07:00 05/28/18 07:00 PE: Gen: A&O x3 Resp: breathing comfortably Abd: soft, nontender, nondistended <Pradeep Hui - Last Filed: 05/28/18 10:31> - Note Progress Note: Agree Had several episodes of vomiting but also multiple BMs No abdominal pain NPO AVSS Abd soft, NT, ND Pending CT A/P PO contrast Discussed case in detail with patient and primary care doctor If has persistent bowel obstruction, will need NGT He agrees; he had been refusing NG tube in last several days If he does require surgery, then he will need to be transferred to a tertiary care center as he is high risk due to cirrhosis, ascites, and thrombocytopenia. He agrees with the plan <Adrian Raines - Last Filed: 05/28/18 11:05> Problem List - Problems (1) Small bowel obstruction Assessment/Plan: Plan -pt does not appear clinically obstructed, will follow up CT abd/pel later today -cont NPO -will continue to follow. Code(s): K56.609 - UNSP INTESTNL OBST, UNSP TO PARTIAL VERSUS COMPLETE OBST <Pradeep Hui - Last Filed: 05/28/18 10:31>
[2018-05-28] MEDS: KCL 10 MEQ IVPB 10 MEQ/100 ML INFUS.BAG IVPB SCH ×3 (12:55→16:08)
--- NOTE | 2018-05-28 13:41 | PN ---
Progress Note, Physician History of Present Illness: stable no issues patient for ct scan today no complaints this morning - Current Medication List Current Medications: Active Medications Acetaminophen (Tylenol -) 650 mg PO Q6H PRN PRN Reason: FEVER Acetaminophen (Ofirmev Injection -) 1,000 mg IVPB Q8H PRN PRN Reason: FEVER/PAIN LEVEL 6-10 Last Admin: 05/27/18 18:34 Dose: 1,000 mg Heparin Sodium (Porcine) (Heparin -) 5,000 unit SQ BID [facility] Last Admin: 05/28/18 09:58 Dose: 5,000 unit Dextrose/Sodium Chloride (D5-1/2ns -) 1,000 mls @ 75 mls/hr IV ASDIR [facility] Last Admin: 05/28/18 05:47 Dose: 75 mls/hr Metronidazole (Flagyl 500mg Premixed Ivpb -) 500 mg in 100 mls @ 100 mls/hr IVPB TID [facility] Last Admin: 05/28/18 05:47 Dose: 100 mls/hr Potassium Chloride (Potassium Chloride 10 Meq Premix Ivpb -) 10 meq in 100 mls @ 100 mls/hr IVPB Q60M [facility] Stop: 05/28/18 15:14 Last Admin: 05/28/18 12:55 Dose: 100 mls/hr Insulin Aspart (Novolog Vial Sliding Scale -) 1 vial SQ ACHS [facility]; Protocol Last Admin: 05/28/18 12:02 Dose: Not Given Ondansetron HCl (Zofran Injection) 4 mg IVPUSH Q6H PRN PRN Reason: NAUSEA AND/OR VOMITING Last Admin: 05/28/18 11:55 Dose: 4 mg - Objective Vital Signs: Vital Signs Temperature 98.9 F 05/28/18 10:01 Pulse Rate 85 05/28/18 10:01 Respiratory Rate 18 05/28/18 10:01 Blood Pressure 153/84 05/28/18 10:01 O2 Sat by Pulse Oximetry (%) 94 L 05/28/18 09:00 Constitutional: Yes: No Distress, Calm Cardiovascular: Yes: Regular Rate and Rhythm Respiratory: Yes: Regular, CTA Bilaterally Gastrointestinal: Yes: Soft, Hypoactive Bowel Sounds Musculoskeletal: Yes: WNL Extremities: Yes: WNL Neurological: Yes: Alert, Oriented Psychiatric: Yes: Alert, Oriented Labs: CBC, BMP 05/28/18 07:00 05/28/18 07:00 INR, PTT INR 1.39 (0.83-1.09) H 05/22/18 14:30 Assessment/Plan 47 y.o. male with PMH of Gastric sleeve in 2003, SBO s/p small bowel resection, Ex-lap with ROSALINDA, NIDDM, ETOH abuse with liver disease presenting with c/o abdominal pain x 3 days, multiple episodes of nonbloody vomiting and no BM x 2- 3 days with imaging consistent with SBO. Recent low grade fever noted. Fever SBO Alcoholic Liver disease DM s/p Gastric sleeve Hx of SBO s/p resection/ROSALINDA patient now has been afebrile plan continue flagyl await ct scan result will decide after that if abx needs addition rest as per the team
--- NOTE | 2018-05-28 18:58 | PN ---
Progress Note, Physician - Current Medication List Current Medications: Active Medications Acetaminophen (Tylenol -) 650 mg PO Q6H PRN PRN Reason: FEVER Acetaminophen (Ofirmev Injection -) 1,000 mg IVPB Q8H PRN PRN Reason: FEVER/PAIN LEVEL 6-10 Last Admin: 05/27/18 18:34 Dose: 1,000 mg Heparin Sodium (Porcine) (Heparin -) 5,000 unit SQ BID [facility] Last Admin: 05/28/18 09:58 Dose: 5,000 unit Dextrose/Sodium Chloride (D5-1/2ns -) 1,000 mls @ 75 mls/hr IV ASDIR [facility] Last Admin: 05/28/18 05:47 Dose: 75 mls/hr Metronidazole (Flagyl 500mg Premixed Ivpb -) 500 mg in 100 mls @ 100 mls/hr IVPB TID [facility] Last Admin: 05/28/18 13:58 Dose: 100 mls/hr Insulin Aspart (Novolog Vial Sliding Scale -) 1 vial SQ ACHS [facility]; Protocol Last Admin: 05/28/18 16:12 Dose: Not Given Ondansetron HCl (Zofran Injection) 4 mg IVPUSH Q6H PRN PRN Reason: NAUSEA AND/OR VOMITING Last Admin: 05/28/18 11:55 Dose: 4 mg - Objective Vital Signs: Vital Signs Temperature 98.3 F 05/28/18 14:00 Pulse Rate 85 05/28/18 14:00 Respiratory Rate 20 05/28/18 14:00 Blood Pressure 150/81 05/28/18 14:00 O2 Sat by Pulse Oximetry (%) 94 L 05/28/18 09:00 Labs: CBC, BMP 05/28/18 07:00 05/28/18 07:00 INR, PTT INR 1.39 (0.83-1.09) H 05/22/18 14:30 Problem List - Problems (1) Small bowel obstruction Code(s): K56.609 - UNSP INTESTNL OBST, UNSP TO PARTIAL VERSUS COMPLETE OBST (2) HTN (hypertension) Code(s): I10 - ESSENTIAL (PRIMARY) HYPERTENSION (3) Anemia Code(s): D64.9 - ANEMIA, UNSPECIFIED (4) Diabetes Code(s): E11.9 - TYPE 2 DIABETES MELLITUS WITHOUT COMPLICATIONS (5) Cirrhosis Code(s): K74.60 - UNSPECIFIED CIRRHOSIS OF LIVER Qualifiers: Hepatic cirrhosis type: alcoholic cirrhosis Ascites presence: with ascites Qualified Code(s): K70.31 - Alcoholic cirrhosis of liver with ascites (6) Morbid obesity Code(s): E66.01 - MORBID (SEVERE) OBESITY DUE TO EXCESS CALORIES
[2018-05-28] MEDS ORDERED: ALPRAZolam 0.25 MG TABLET PO ONE (20:00)
--- NOTE | 2018-05-28 21:03 | CONSULT ---
Consult Consult Specialty:: surgery 2nd opinion Reason for Consultation:: SBO - History of Present Illness Chief Complaint: vomiting and pain History of Present Illness: 47 yr old male s/p VSG 10 yrs ago , s/p ex lap X2 for SBO presented with N/V and Abdominal pain. Admitted with SBO and treated conservatively. This is now Hospital day [address] scan done today shows persistent SBO - Past Medical History Cardio/Vascular: Yes: HTN Pulmonary: Yes: Asthma Gastrointestinal: Yes: Other (SBO) Psych: Yes: Addictions (ETOH abuse) Endocrine: Yes: Diabetes Mellitus (States diet controlled: off insulin and oral therapy x 1 year per patient) - Past Surgical History Past Surgical History: Yes: Bariatric Surgery (gastric sleeve (2007 or 2008)) - Alcohol/Substance Use Hx Alcohol Use: Yes History of Substance Use: reports: None - Smoking History Smoking history: Never smoked - Social History Usual Living Arrangement: With Spouse ADL: Independent Occupation: Unemployed History of Recent Travel: No Home Medications - Allergies Allergies/Adverse Reactions: Allergies Allergy/AdvReac Type Severity Reaction Status Date / Time Penicillins Allergy Severe Hives Verified 05/22/18 12:18 - Home Medications Home Medications: Ambulatory Orders Enalapril Maleate [Vasotec] 40 mg PO DAILY 03/16/18 Biotin 10,000 mcg PO BID 03/18/18 Cyclobenzaprine HCl [Flexeril 10 mg] 10 mg PO DAILY 03/18/18 Ferrous Sulfate 325 mg PO BID 03/18/18 Folic Acid - 1 mg PO DAILY #30 tablet 03/20/18 Furosemide [Lasix] 40 mg PO DAILY #30 tablet 03/20/18 Thiamine HCl [Vitamin B1 -] 100 mg PO DAILY #30 tablet 03/20/18 Family Disease History - Family Disease History Family Disease History: Other: Father (: 74: pancreatic ca), Mother (: 65: [place]), Brother (20: full and half), Sister (16: full and half), Son (3, healthy), Daughter (3, healthy) Physical Exam Vital Signs: Vital Signs Temperature 99.3 F 05/28/18 18:00 Pulse Rate 86 05/28/18 18:00 Respiratory Rate 20 05/28/18 18:00 Blood Pressure 138/83 05/28/18 18:00 O2 Sat by Pulse Oximetry (%) 94 L 05/28/18 09:00 Gastrointestinal: Yes: WNL, Soft (ventral hernia reducible epigastric nontender and nondistended) Labs: CBC, BMP 05/28/18 07:00 05/28/18 07:00 Imaging - Results Cat Scan: Report Reviewed, Image Reviewed Problem List - Problems (1) Nausea and vomiting Code(s): R11.2 - NAUSEA WITH VOMITING, UNSPECIFIED Assessment/Plan 47 with old with recurrent SBO by CT. Clinically patient is feeling better this evening, reports flatus and denies Abdominal pain. Repeat Obstructive series in am and if unable to progress to oral diet tomorrow will recommend surgical exploration.
[2018-05-29] MEDS: DEXTROSE 5%-0.45% SALINE 1,000 ML IV SCH ×2 (02:30→14:45)
[2018-05-29] MEDS: INSULIN SLIDING SCALE (NOVOLOG) 1 VIAL SQ SCH ×4 (06:03→22:09)
[2018-05-29 08:21] LABS: ANION GAP 11 MMOL/L (8-16); BLOOD UREA NITROGEN 37 mg/dL (7-18); CALCIUM 8.9 mg/dL (8.5-10.1); CHLORIDE 94 mmol/L (98-107); CO2 29 mmol/L (21-32); CREATININE 2.8 mg/dL (0.55-1.3); GLUCOSE,RANDOM 122 mg/dL (74-106); POTASSIUM 3.2 mmol/L (3.5-5.1); SODIUM 135 mmol/L (136-145)
--- NOTE | 2018-05-29 08:29 | PN ---
Progress Note, Physician Chief Complaint: patient alert Denies chest pain or SOB NGT in place. Creatinine up to 2.8 He is urinating. - Current Medication List Current Medications: Active Medications Acetaminophen (Tylenol -) 650 mg PO Q6H PRN PRN Reason: FEVER Acetaminophen (Ofirmev Injection -) 1,000 mg IVPB Q8H PRN PRN Reason: FEVER/PAIN LEVEL 6-10 Last Admin: 05/27/18 18:34 Dose: 1,000 mg Heparin Sodium (Porcine) (Heparin -) 5,000 unit SQ BID [facility] Last Admin: 05/28/18 20:59 Dose: 5,000 unit Dextrose/Sodium Chloride (D5-1/2ns -) 1,000 mls @ 75 mls/hr IV ASDIR [facility] Last Admin: 05/29/18 02:30 Dose: 75 mls/hr Metronidazole (Flagyl 500mg Premixed Ivpb -) 500 mg in 100 mls @ 100 mls/hr IVPB TID [facility] Last Admin: 05/29/18 05:39 Dose: 100 mls/hr Insulin Aspart (Novolog Vial Sliding Scale -) 1 vial SQ ACHS [facility]; Protocol Last Admin: 05/29/18 06:03 Dose: Not Given Ondansetron HCl (Zofran Injection) 4 mg IVPUSH Q6H PRN PRN Reason: NAUSEA AND/OR VOMITING Last Admin: 05/28/18 11:55 Dose: 4 mg - Objective Vital Signs: Vital Signs Temperature 99.3 F 05/28/18 18:00 Pulse Rate 86 05/28/18 18:00 Respiratory Rate 20 05/28/18 18:00 Blood Pressure 138/83 05/28/18 18:00 O2 Sat by Pulse Oximetry (%) 95 05/28/18 22:00 Constitutional: Yes: No Distress, Calm HENT: Yes: Other (+ NGT) Cardiovascular: Yes: Regular Rate and Rhythm (no murmurs) Respiratory: Yes: CTA Bilaterally (no wheezing or rales) Gastrointestinal: Yes: Soft (decreaed bowel sounds, no rebound or guarding) Edema: No Neurological: Yes: Alert, Oriented Labs: CBC, BMP 05/28/18 07:00 05/29/18 07:00 INR, PTT INR 1.39 (0.83-1.09) H 01/15/19 14:30 - ....Imaging EKG: Image Reviewed Problem List - Problems (1) Small bowel obstruction Code(s): K56.609 - UNSP INTESTNL OBST, UNSP TO PARTIAL VERSUS COMPLETE OBST (2) Alcoholic cirrhosis of liver Code(s): K70.30 - ALCOHOLIC CIRRHOSIS OF LIVER WITHOUT ASCITES (3) Cirrhosis Code(s): K74.60 - UNSPECIFIED CIRRHOSIS OF LIVER Qualifiers: Hepatic cirrhosis type: alcoholic cirrhosis Ascites presence: with ascites Qualified Code(s): K70.31 - Alcoholic cirrhosis of liver with ascites (4) Thrombocytopenia Code(s): D69.6 - THROMBOCYTOPENIA, UNSPECIFIED Assessment/Plan IMP: Small bowel obstruction Acute renal failure- suspect pre-renal ETOH cirrhosis REC: 1. Management SBO as per surgery 2. Increase IVF, renal consult. 3. DVT prophylaxis Remains hemodynamically stable.
[2018-05-29] MEDS ORDERED: DEXTROSE 5%-0.45% SALINE 1,000 ML IV SCH (08:45)
--- NOTE | 2018-05-29 09:32 | CONSULT ---
Consult Consult Specialty:: Nephrology Referred by:: Dr Clements Reason for Consultation:: TIFF - History of Present Illness History of Present Illness: Pt is a 47 y/o male w/ PMH significant for HTN, diabetes, asthma, anemia, liver dz, h/o etoh abuse and morbid obesity(S/P gastric sleeve), presented with abd pain with associated nausea and vomiting x 2 days and found to have SBO still persisting despite conservative management and rising Creatinine from 1.1>>1.8>> 2.8. Pt denies hematuria, anuria/oliguria. Stopped vomiting a day ago, last ETOH use reported as 3 months ago. - History Source History Provided By: Patient, Medical Record Limitations to Obtaining History: No Limitations - Past Medical History Cardio/Vascular: Yes: HTN Pulmonary: Yes: Asthma Gastrointestinal: Yes: Other (SBO) Psych: Yes: Addictions (ETOH abuse) Endocrine: Yes: Diabetes Mellitus (States diet controlled: off insulin and oral therapy x 1 year per patient) - Past Surgical History Past Surgical History: Yes: Bariatric Surgery (gastric sleeve (2007 or 2008)) - Alcohol/Substance Use Hx Alcohol Use: Yes History of Substance Use: reports: None - Smoking History Smoking history: Never smoked - Social History Usual Living Arrangement: With Spouse ADL: Independent Occupation: Unemployed History of Recent Travel: No Home Medications - Allergies Allergies/Adverse Reactions: Allergies Allergy/AdvReac Type Severity Reaction Status Date / Time Penicillins Allergy Severe Hives Verified 05/22/18 12:18 - Home Medications Home Medications: Ambulatory Orders Enalapril Maleate [Vasotec] 40 mg PO DAILY 03/16/18 Biotin 10,000 mcg PO BID 03/18/18 Cyclobenzaprine HCl [Flexeril 10 mg] 10 mg PO DAILY 03/18/18 Ferrous Sulfate 325 mg PO BID 03/18/18 Folic Acid - 1 mg PO DAILY #30 tablet 03/20/18 Furosemide [Lasix] 40 mg PO DAILY #30 tablet 03/20/18 Thiamine HCl [Vitamin B1 -] 100 mg PO DAILY #30 tablet 03/20/18 Family Disease History - Family Disease History Family Disease History: Other: Father (: 74: pancreatic ca), Mother (: 65: [place]), Brother (20: full and half), Sister (16: full and half), Son (3, healthy), Daughter (3, healthy) Review of Systems - Review of Systems Constitutional: denies: Chills, Fever Cardiovascular: denies: Chest Pain, Edema, Shortness of Breath Gastrointestinal: reports: Abdominal Pain Genitourinary: denies: Burning, Dysuria, Flank Pain, Hematuria Neurological: denies: Change in LOC, Confusion Psychiatric: reports: No Symptoms Physical Exam Vital Signs: Vital Signs Temperature 99.3 F 05/28/18 18:00 Pulse Rate 86 05/28/18 18:00 Respiratory Rate 20 05/28/18 18:00 Blood Pressure 138/83 05/28/18 18:00 O2 Sat by Pulse Oximetry (%) 95 05/28/18 22:00 Constitutional: Yes: Calm Eyes: Yes: EOM Intact HENT: Yes: Other (NGT to wall suction) Cardiovascular: Yes: S1, S2 Respiratory: Yes: CTA Bilaterally Gastrointestinal: Yes: Distention, Hypoactive Bowel Sounds Renal/: No: Anuria, CVA Tenderness - Left, CVA Tenderness - Right Edema: No Neurological: Yes: Alert, Oriented ...Motor Strength: WNL Psychiatric: Yes: Alert, Oriented Labs: CBC, BMP 05/28/18 07:00 05/29/18 07:00 Assessment/Plan Pt is a 47 y/o male w/ PMH significant for HTN, diabetes, asthma, anemia, liver dz, h/o etoh abuse and morbid obesity(S/P gastric sleeve), presented with abd pain with associated nausea and vomiting x 2 days and found to have SBO still persisting despite conservative management and rising Creatinine from 1.1>>1.8>> 2.8. HTN diabetes asthma anemia liver dz, h/o etoh abuse morbid obesity(S/P gastric sleeve), SBO Anemia Thrombocytopenia hypokalemia Tiff Plan: TIFF rising Creatinine from 1.1>>1.8>>2.8 Likely in setting of hypovolemia with prenal TIFF (NGT to suction , NPO) Cont IVF D5/1/2NS @125 Urinary lytes (pt already on IVF) Abd US K repleted Avoid nephrotoxic drugs BMP Will continue to follow Visit type - Emergency Visit Emergency Visit: Yes ED Registration Date: 05/22/18 Care time: The patient presented to the Emergency Department on the above date and was hospitalized for further evaluation of their emergent condition. - New Patient This patient is new to me today: Yes Date on this admission: 05/29/18 - Critical Care Critical Care patient: No
--- NOTE | 2018-05-29 10:11 | PN ---
Progress Note (short form) - Note Progress Note: Pt seen and examined. Reports multiple episodes of vomiting last night. Had NG tube put in with improvement in abdominal pain. This morning reports no abdo pain. No flatus, no BM. Has been voiding without issue. Denies cp/sob. Vital Signs Temp 99.3 F 05/28/18 18:00 Pulse 86 05/28/18 18:00 Resp 20 05/28/18 18:00 BP 138/83 05/28/18 18:00 Pulse Ox 95 05/28/18 22:00 Intake & Output 05/28/18 05/28/18 05/29/18 11:59 23:59 11:59 Intake Total 1000 900 900 Output Total 500 2 2350 Balance 500 898 -1450 Intake: IV 900 500 700 D5-1/2Ns - 1,000 ml @ 75 900 500 700 mls/hr IV ASDIR [facility] Rx#: [id number] IVPB 100 400 200 Oral 0 Output: Gastric Drainage 1350 Urine 2 Void 2 Emesis 500 1000 Other: Voiding Method Toilet Toilet # Unmeasured Voids Void 2 Bowel Movement No # Bowel Movements 0 CBC, BMP 05/28/18 07:00 05/29/18 07:00 Abnormal Lab Results 05/29/18 07:00 Sodium 135 L Potassium 3.2 L Chloride 94 L BUN 37 H Creatinine 2.8 H Random Glucose 122 H Gen: awake, alert, nad, laying in bed with NG tube in place Resp: unlabored on RA Abdo: soft, nt/nd. NG tube in place with bile in reservoir (approx 150ml at time of evaluation) A/P: 47 y/o M w/ PMHx Gastric sleeve in 2003, SBO s/p small bowel resection, Ex- lap with ROSALINDA, NIDDM, ETOH abuse with cirrhosis/ascites, thrombocytopenia, now admitted 05/22 w/ abdominal pain x 3 days. NG tube placed overnight for ++vomiting, 1000ml bile put out overnight, additional 150ml this morning. Low grade fever overnight, remainder of VSS. No leukocytosis, creatinine significantly elevated (2.8 today from 1.8 yesterday ), ?dehydration -OR tomorrow for diagnostic laparoscopy, lysis of adhesions, possible small bowel resection, possible ex-lap -Need medical optimization and clearance -Needs hematology consult for thrombocytopenia -Replete potassium -Full labs ordered for AM (cbc, chem, coags, t&s), ekg and cxr in chart -Keep NG tube in place to wall suction -NPO above d/w attending Dr Palmer
[2018-05-29] MEDS: ACETAMINOPHEN 1000 MG/100 ML VIAL (NON FORMULARY) IVPB PRN (10:55)
[2018-05-29] MEDS: HEPARIN NA (PORCINE) 5,000 UNITS/ML 1ML VIAL SQ SCH ×3 (11:11→22:09)
--- NOTE | 2018-05-29 11:12 | PN ---
Progress Note (short form) - Note Progress Note: CT A/P showed persistent bowel obstruction Second opinion obtained- Dr Lloyd saw and evaluated the patient Discussed the case with him this morning as well as with Dr Aristeo Lloyd agreed to be the primary surgeon on the case and is leading/taking over the case Defer to him for further management Thank you
--- NOTE | 2018-05-29 12:32 | PN ---
Progress Note, Physician History of Present Illness: ct scan noted worsening obstruction now with ng tube feeling better - Current Medication List Current Medications: Active Medications Acetaminophen (Tylenol -) 650 mg PO Q6H PRN PRN Reason: FEVER Acetaminophen (Ofirmev Injection -) 1,000 mg IVPB Q8H PRN PRN Reason: FEVER/PAIN LEVEL 6-10 Last Admin: 05/29/18 10:55 Dose: 1,000 mg Heparin Sodium (Porcine) (Heparin -) 5,000 unit SQ BID [facility] Last Admin: 05/29/18 11:11 Dose: 5,000 unit Metronidazole (Flagyl 500mg Premixed Ivpb -) 500 mg in 100 mls @ 100 mls/hr IVPB TID [facility] Last Admin: 05/29/18 05:39 Dose: 100 mls/hr Dextrose/Sodium Chloride (D5-1/2ns -) 1,000 mls @ 125 mls/hr IV ASDIR [facility] Last Admin: 05/29/18 08:42 Dose: 125 mls/hr Insulin Aspart (Novolog Vial Sliding Scale -) 1 vial SQ ACHS [facility]; Protocol Last Admin: 05/29/18 11:18 Dose: Not Given Ondansetron HCl (Zofran Injection) 4 mg IVPUSH Q6H PRN PRN Reason: NAUSEA AND/OR VOMITING Last Admin: 05/28/18 11:55 Dose: 4 mg - Objective Vital Signs: Vital Signs Temperature 99.5 F 05/29/18 09:00 Pulse Rate 87 05/29/18 09:00 Respiratory Rate 20 05/29/18 09:00 Blood Pressure 144/80 05/29/18 09:00 O2 Sat by Pulse Oximetry (%) 95 05/28/18 22:00 Constitutional: Yes: No Distress, Calm Cardiovascular: Yes: Regular Rate and Rhythm Respiratory: Yes: Regular, CTA Bilaterally Gastrointestinal: Yes: Soft, Hypoactive Bowel Sounds, Other (ngtube in place) Musculoskeletal: Yes: WNL Extremities: Yes: WNL Neurological: Yes: Alert, Oriented Psychiatric: Yes: Alert, Oriented Labs: CBC, BMP 05/28/18 07:00 05/29/18 07:00 INR, PTT INR 1.39 (0.83-1.09) H 05/22/18 14:30 Assessment/Plan 47 y.o. male with PMH of Gastric sleeve in 2003, SBO s/p small bowel resection, Ex-lap with ROSALINDA, NIDDM, ETOH abuse with liver disease presenting with c/o abdominal pain x 3 days, multiple episodes of nonbloody vomiting and no BM x 2- 3 days with imaging consistent with SBO. Recent low grade fever noted. Fever SBO Alcoholic Liver disease DM s/p Gastric sleeve Hx of SBO s/p resection/ROSALINDA patient now has been afebrile plan continue flayl npo hydration rest as per the team if patient spiked fever will switch to zosyn
[2018-05-29] MEDS: KCL 10 MEQ IVPB 10 MEQ/100 ML INFUS.BAG IVPB SCH ×3 (14:46→17:10)
--- NOTE | 2018-05-29 15:21 | PN ---
GI Progress Note Subjective: Patient has NGT placed to LCS, 750cc of dark bilious output noted. Abdominal CT scan from 05/28/18 shows slightly worsened high-grade partial SBO within the lower mid to right abdomen, most likely related to post-operative adhesions. Patient states feeling better since NGT placed. Denies abdominal pain. States passing flatus, last BM on 05/28/18. - Objective Vital Signs: Vital Signs Temperature 98.7 F 05/29/18 13:31 Pulse Rate 80 05/29/18 13:31 Respiratory Rate 20 05/29/18 13:31 Blood Pressure 147/85 05/29/18 13:31 O2 Sat by Pulse Oximetry (%) 95 05/28/18 22:00 Constitutional: Well Nourished, No Distress, Calm Eyes: Yes: Conjunctiva Clear Neck: Yes: Supple Cardiovascular: Yes: Regular Rate and Rhythm Respiratory: Yes: Regular, CTA Bilaterally Gastrointestinal Inspection: Yes: Distention (mild) ...Auscultate: Yes: Normoactive Bowel Sounds ...Palpate: Yes: Soft. No: Firm/Rigid, Guarding, Hepatomegaly, Mass, Pulsatile Mass, Splenomegaly, Tenderness, Tenderness, Epigastium, Tenderness, Rebound, Other ...Percussion: Yes: Tympanitic Neurological: Yes: Alert Labs: CBC, BMP 05/28/18 07:00 05/29/18 07:00 INR, PTT INR 1.39 (0.83-1.09) H 05/22/18 14:30 Home Medication List Medication Instructions Recorded Confirmed Type Enalapril Maleate [Vasotec] 40 mg PO DAILY 03/16/18 03/16/18 History Biotin 10,000 mcg PO BID 03/18/18 03/18/18 History Cyclobenzaprine HCl [Flexeril 10 10 mg PO DAILY 03/18/18 03/18/18 History mg] Ferrous Sulfate 325 mg PO BID 03/18/18 03/18/18 History Active Medications Generic Name Dose Route Start Last Admin Trade Name Freq PRN Reason Stop Dose Admin Acetaminophen 650 mg 05/23/18 22:50 Tylenol - PO Q6H PRN FEVER Acetaminophen 1,000 mg 05/23/18 23:22 05/29/18 10:55 Ofirmev Injection - IVPB 1,000 mg Q8H PRN Administration FEVER/PAIN LEVEL 6-10 Heparin Sodium (Porcine) 5,000 unit 05/29/18 10:45 05/29/18 11:11 Heparin - SQ 5,000 unit BID [facility] Administration Metronidazole 500 mg in 100 mls @ 100 mls/hr 05/23/18 23:00 05/29/18 14:45 Flagyl 500mg Premixed Ivpb - IVPB 100 mls/hr TID [facility] Administration Potassium Chloride 10 meq in 100 mls @ 100 mls/hr 05/29/18 14:00 05/29/18 15: 46 Potassium Chloride 10 Meq Premix Ivpb - IVPB 05/29/18 16:59 100 mls/hr Q60M [facility] Administration Dextrose/Sodium Chloride 1,000 mls @ 125 mls/hr 05/29/18 14:00 05/29/18 14:45 D5-1/2ns - IV 125 mls/hr ASDIR [facility] Administration Insulin Aspart 1 vial 05/24/18 07:00 05/29/18 11:18 Novolog Vial Sliding Scale - SQ Not Given ACHS [facility] Protocol Ondansetron HCl 4 mg 05/23/18 02:32 05/28/18 11:55 Zofran Injection IVPUSH 4 mg Q6H PRN Administration NAUSEA AND/OR VOMITING Problem List - Problems (1) Abdominal pain Assessment/Plan: R>CT scan results reviewed surgery on board Code(s): R10.9 - UNSPECIFIED ABDOMINAL PAIN (2) Small bowel obstruction Assessment/Plan: R>continue antibiotics cont with NGT to LCS surgery on board, to go to OR tomorrow for diagnostic laparoscopy, lysis of adhesions, possible small bowel resection, possible ex-lap Code(s): K56.609 - UNSP INTESTNL OBST, UNSP TO PARTIAL VERSUS COMPLETE OBST (3) Nausea and vomiting Assessment/Plan: R>NPO status zofran PRN Code(s): R11.2 - NAUSEA WITH VOMITING, UNSPECIFIED
--- NOTE | 2018-05-29 15:38 | CONSULT ---
Consult Consult Specialty:: Hematology and Oncology Referred by:: Dr. Alberts Reason for Consultation:: anemia and thromocytopenia - History of Present Illness History of Present Illness: 47 yo h/o HTN, DM, asthma, anemia, liver cirrhosis due to EtOH, morbid obesity s /p gastric sleeve admitted to the hospital for SBO. Hemonc was called to evaluate anemia and thrombocytopenia prior to ex-lap tomorrow. Pt endorses years of alcohol abuse and his GI doctor told him he has liver cirrhosis and anemia 1 year ago and he quit drinking as a result. He now being evaluated for SBO possibly ex-lap tomorrow. Denies chest pain, sob, abd pain, fever, chills, n /v. - History Source History Provided By: Patient Limitations to Obtaining History: No Limitations - Past Medical History Cardio/Vascular: Yes: HTN Pulmonary: Yes: Asthma Gastrointestinal: Yes: Other (SBO) Psych: Yes: Addictions (ETOH abuse) Endocrine: Yes: Diabetes Mellitus (States diet controlled: off insulin and oral therapy x 1 year per patient) - Past Surgical History Past Surgical History: Yes: Bariatric Surgery (gastric sleeve (2007 or 2008)) - Alcohol/Substance Use Hx Alcohol Use: Yes History of Substance Use: reports: None - Smoking History Smoking history: Never smoked - Social History Usual Living Arrangement: With Spouse ADL: Independent Occupation: Unemployed History of Recent Travel: No Home Medications - Allergies Allergies/Adverse Reactions: Allergies Allergy/AdvReac Type Severity Reaction Status Date / Time Penicillins Allergy Severe Hives Verified 05/22/18 12:18 - Home Medications Home Medications: Ambulatory Orders Enalapril Maleate [Vasotec] 40 mg PO DAILY 03/16/18 Biotin 10,000 mcg PO BID 03/18/18 Cyclobenzaprine HCl [Flexeril 10 mg] 10 mg PO DAILY 03/18/18 Ferrous Sulfate 325 mg PO BID 03/18/18 Folic Acid - 1 mg PO DAILY #30 tablet 03/20/18 Furosemide [Lasix] 40 mg PO DAILY #30 tablet 03/20/18 Thiamine HCl [Vitamin B1 -] 100 mg PO DAILY #30 tablet 03/20/18 Family Disease History - Family Disease History Family Disease History: Other: Father (: 74: pancreatic ca), Mother (: 65: [place]), Brother (20: full and half), Sister (16: full and half), Son (3, healthy), Daughter (3, healthy) Review of Systems - Review of Systems Constitutional: denies: Chills, Fever Cardiovascular: denies: Chest Pain, Shortness of Breath Respiratory: denies: SOB Gastrointestinal: denies: Abdominal Pain, Nausea, Vomiting Neurological: reports: No Symptoms Hematology/Lymphatic: denies: Easily Bruised, Excessive Bleeding Physical Exam Vital Signs: Vital Signs Temperature 98.7 F 05/29/18 13:31 Pulse Rate 80 05/29/18 13:31 Respiratory Rate 20 05/29/18 13:31 Blood Pressure 147/85 05/29/18 13:31 O2 Sat by Pulse Oximetry (%) 95 05/28/18 22:00 Constitutional: Yes: No Distress, Calm Eyes: Yes: Conjunctiva Clear, EOM Intact HENT: Yes: Atraumatic, Normocephalic Cardiovascular: Yes: Regular Rate and Rhythm, S1, S2. No: Murmur Respiratory: Yes: CTA Bilaterally Gastrointestinal: Yes: Normal Bowel Sounds, Abdomen, Obese, Hypoactive Bowel Sounds. No: Tenderness Edema: No Neurological: Yes: Alert, Oriented Labs: CBC, BMP 05/28/18 07:00 05/29/18 07:00 Assessment/Plan 47 yo h/o HTN, DM, asthma, anemia, liver cirrhosis due to EtOH, morbid obesity s /p gastric sleeve admitted to the hospital for SBO, now being evaluated for anemia and thrombocytopenia. assessment: 1. thrombocytopenia 2. anemia plan: 1. thrombocytopenia likely due to decreased production caused by multiple factors: infection, EtOH, cirrhosis, hypersplenism 2. anemia can again caused by liver cirrhosis and hyperslenism; will send iron studies, ret count, b12, folic acid level, tsh, ldh, haptoglobin patient is cleared for ex-lap from hemonc perspective. normal transfusion threshold Nas GAUTAM [id number] Visit type - Emergency Visit Emergency Visit: No - New Patient This patient is new to me today: Yes Date on this admission: 05/30/18 - Critical Care Critical Care patient: No
--- NOTE | 2018-05-29 16:20 | PN ---
Teaching Attending Note Name of Resident: Nita Soto (Nephrology) ATTENDING PHYSICIAN STATEMENT I saw and evaluated the patient. I reviewed the resident's note and discussed the case with the resident. I agree with the resident's findings and plan as documented. Renal Pt is a 47 year old male with pmhx of HTN, DM, asthma, andemai and etoh abuse who is admitted with SBO. I was called to evaluate him for SBO. He has history of bariatric surgery. He denies history of CKD. pmhx htn dm asthma anemai liver disease pshx bariatric surgery allergies pcn ros nausea family hx denies social hx etoh abuse Current Medications Generic Name Dose Route Start Last Admin Trade Name Freq PRN Reason Stop Dose Admin Acetaminophen 650 mg 05/23/18 22:50 Tylenol - PO Q6H PRN FEVER Acetaminophen 1,000 mg 05/23/18 23:22 05/29/18 10:55 Ofirmev Injection - IVPB 1,000 mg Q8H PRN Administration FEVER/PAIN LEVEL 6-10 Heparin Sodium (Porcine) 5,000 unit 05/29/18 10:45 05/29/18 11:11 Heparin - SQ 5,000 unit BID [facility] Administration Metronidazole 500 mg in 100 mls @ 100 mls/hr 05/23/18 23:00 05/29/18 14:45 Flagyl 500mg Premixed Ivpb - IVPB 100 mls/hr TID [facility] Administration Potassium Chloride 10 meq in 100 mls @ 100 mls/hr 05/29/18 14:00 05/29/18 15: 46 Potassium Chloride 10 Meq Premix Ivpb - IVPB 05/29/18 16:59 100 mls/hr Q60M [facility] Administration Dextrose/Sodium Chloride 1,000 mls @ 125 mls/hr 05/29/18 14:00 05/29/18 14:45 D5-1/2ns - IV 125 mls/hr ASDIR [facility] Administration Insulin Aspart 1 vial 05/24/18 07:00 05/29/18 11:18 Novolog Vial Sliding Scale - SQ Not Given ACHS [facility] Protocol Ondansetron HCl 4 mg 05/23/18 02:32 05/28/18 11:55 Zofran Injection IVPUSH 4 mg Q6H PRN Administration NAUSEA AND/OR VOMITING Laboratory Tests 05/28/18 05/29/18 07:00 07:00 Hgb 11.2 L Sodium 135 L Potassium 3.2 L Chloride 94 L BUN 37 H Creatinine 2.8 H Last Vital Signs Temp Pulse Resp BP Pulse Ox 98.7 F 80 20 147/85 95 05/29/18 13:31 05/29/18 13:31 05/29/18 13:31 05/29/18 13:31 05/28/18 22:00 cardio s1s2 reg pulm cleat GI tender, ng tube to suction ext neg edema neuro awake and alert skin tatoos Impression 1. MICHELLE 2. hypokalemia 3. SBO 4. dm 5. htn 6. liver disease - unclear how severe 7. asthma 8. anemia Plan - check urine lytes and epic cadence specialists to calc fena - check ultrasound kidneys and bladder - replace potassium - check mag level - monitor output - check ua - will follow Dr Portillo
--- NOTE | 2018-05-29 18:06 | PN ---
Progress Note, Physician History of Present Illness: Pt w/ NGT - Current Medication List Current Medications: Active Medications Acetaminophen (Tylenol -) 650 mg PO Q6H PRN PRN Reason: FEVER Acetaminophen (Ofirmev Injection -) 1,000 mg IVPB Q8H PRN PRN Reason: FEVER/PAIN LEVEL 6-10 Last Admin: 05/29/18 10:55 Dose: 1,000 mg Heparin Sodium (Porcine) (Heparin -) 5,000 unit SQ BID [facility] Last Admin: 05/29/18 11:11 Dose: 5,000 unit Metronidazole (Flagyl 500mg Premixed Ivpb -) 500 mg in 100 mls @ 100 mls/hr IVPB TID [facility] Last Admin: 05/29/18 14:45 Dose: 100 mls/hr Dextrose/Sodium Chloride (D5-1/2ns -) 1,000 mls @ 125 mls/hr IV ASDIR [facility] Last Admin: 05/29/18 14:45 Dose: 125 mls/hr Insulin Aspart (Novolog Vial Sliding Scale -) 1 vial SQ ACHS [facility]; Protocol Last Admin: 05/29/18 16:44 Dose: Not Given Ondansetron HCl (Zofran Injection) 4 mg IVPUSH Q6H PRN PRN Reason: NAUSEA AND/OR VOMITING Last Admin: 05/28/18 11:55 Dose: 4 mg - Objective Vital Signs: Vital Signs Temperature 98.7 F 05/29/18 13:31 Pulse Rate 80 05/29/18 13:31 Respiratory Rate 20 05/29/18 13:31 Blood Pressure 147/85 05/29/18 13:31 O2 Sat by Pulse Oximetry (%) 95 05/28/18 22:00 Cardiovascular: Yes: WNL, Regular Rate and Rhythm Respiratory: Yes: WNL, Regular, CTA Bilaterally Gastrointestinal: Yes: Soft, Other (minimal periumbilical tenderness on palpation (-) guarding/rebound) Labs: CBC, BMP 05/28/18 07:00 05/29/18 07:00 INR, PTT INR 1.39 (0.83-1.09) H 05/22/18 14:30 Problem List - Problems (1) Small bowel obstruction Assessment/Plan: NPO Cont IVF NGT to low suction Pt for OR in am for lysis of adhesions/exp lap/bowel resection Lytes being replaced At this time pt is medically cleared for surgery Heme consult regarding plts Check labs in am Code(s): K56.609 - UNSP INTESTNL OBST, UNSP TO PARTIAL VERSUS COMPLETE OBST (2) HTN (hypertension) Assessment/Plan: BP stable Cont meds Code(s): I10 - ESSENTIAL (PRIMARY) HYPERTENSION (3) Anemia Assessment/Plan: H/H stable Code(s): D64.9 - ANEMIA, UNSPECIFIED (4) Diabetes Assessment/Plan: Cont sliding scale w/ coverage Code(s): E11.9 - TYPE 2 DIABETES MELLITUS WITHOUT COMPLICATIONS (5) Cirrhosis Code(s): K74.60 - UNSPECIFIED CIRRHOSIS OF LIVER Qualifiers: Hepatic cirrhosis type: alcoholic cirrhosis Ascites presence: with ascites Qualified Code(s): K70.31 - Alcoholic cirrhosis of liver with ascites (6) Morbid obesity Code(s): E66.01 - MORBID (SEVERE) OBESITY DUE TO EXCESS CALORIES
--- NOTE | 2018-05-29 19:32 | PN ---
Teaching Attending Note Name of Resident: Nas El ATTENDING PHYSICIAN STATEMENT I saw and evaluated the patient. I reviewed the resident's note and discussed the case with the resident. I agree with the resident's findings and plan as documented. SUBJECTIVE: Patient seen and examined 47 yo h/o HTN, DM, asthma, anemia, liver cirrhosis due to EtOH, morbid obesity s /p gastric sleeve admitted to the hospital for SBO, now being evaluated for anemia and thrombocytopenia. Last Vital Signs Temp Pulse Resp BP Pulse Ox 98.7 F 80 20 147/85 95 05/29/18 13:31 05/29/18 13:31 05/29/18 13:31 05/29/18 13:31 05/28/18 22:00 HEENT: KARIN, EOM Intact Oropharynx: No thrush, No mucositisNG tube Neck: Supple Nodes: Without adenopathy Cor: RSR, No murmurs, No gallops Lungs: Clear to P&A Abd: Soft, Normal bowel sounds, No organomegaly vertical scar Ext:No significant edema Skin: No rashes, Integument intact CBC, BMP 05/28/18 07:00 05/29/18 07:00 INR, PTT INR 1.39 (0.83-1.09) H 05/22/18 14:30 Current Medications Generic Name Dose Route Start Last Admin Trade Name Freq PRN Reason Stop Dose Admin Acetaminophen 650 mg 05/23/18 22:50 Tylenol - PO Q6H PRN FEVER Acetaminophen 1,000 mg 05/23/18 23:22 05/29/18 10:55 Ofirmev Injection - IVPB 1,000 mg Q8H PRN Administration FEVER/PAIN LEVEL 6-10 Heparin Sodium (Porcine) 5,000 unit 05/29/18 10:45 05/29/18 11:11 Heparin - SQ 5,000 unit BID [facility] Administration Metronidazole 500 mg in 100 mls @ 100 mls/hr 05/23/18 23:00 05/29/18 14:45 Flagyl 500mg Premixed Ivpb - IVPB 100 mls/hr TID [facility] Administration Dextrose/Sodium Chloride 1,000 mls @ 125 mls/hr 05/29/18 14:00 05/29/18 14:45 D5-1/2ns - IV 125 mls/hr [facility]IR [facility] Administration Insulin Aspart 1 vial 05/24/18 07:00 05/29/18 16:44 Novolog Vial Sliding Scale - SQ Not Given ACHS [facility] Protocol Ondansetron HCl 4 mg 05/23/18 02:32 05/28/18 11:55 Zofran Injection IVPUSH 4 mg Q6H PRN Administration NAUSEA AND/OR VOMITING Impression: SBO Anemia - multifactorial - cirrhosis, hypersplenism, ? component of Fe++ deficiency +/or B-12 deficiency in view of gastric sleeve, infection,CKD/MICHELLE Thrombocytopenia - similar issues of liver disease/cirrhosis , infection, hypersplenism Platelet count of 116K should be adequate for surgery To check INR. OBJECTIVE: ASSESSMENT AND PLAN:
[2018-05-29 19:41] LABS: RATIO URIN PROTEIN/URIN CREAT 0.11 MG/DL
[2018-05-29 21:51] LABS: INR 1.5 (0.83-1.09); PROTHROMBIN TIME (PATIENT) 17.8 SEC (9.7-13.0)
[2018-05-29 22:08] LABS: ANION GAP 9 MMOL/L (8-16); BLOOD UREA NITROGEN 36 mg/dL (7-18); CALCIUM 8.6 mg/dL (8.5-10.1); CHLORIDE 95 mmol/L (98-107); CO2 31 mmol/L (21-32); CREATININE 2.7 mg/dL (0.55-1.3); GLUCOSE,RANDOM 106 mg/dL (74-106); POTASSIUM 3.3 mmol/L (3.5-5.1); SODIUM 135 mmol/L (136-145)
[2018-05-29 22:15] LABS: URINE APPEARANCE CLEAR; URINE BILIRUBIN NEGATIVE (<2.0 mg/dL); URINE COLOR AMBER; URINE GLUCOSE (UA) NEGATIVE (NEGATIVE); URINE KETONE NEGATIVE (NEGATIVE); URINE LEUK ESTERASE TRACE (NEGATIVE); URINE NITRITE NEGATIVE (NEGATIVE); URINE PROTEIN NEGATIVE (NEGATIVE); URINE UROBILINOGEN NEGATIVE mg/dL (0.2-1.0)
[2018-05-29 22:34] LABS: EPI CELLS RARE /HPF (FEW); URINE HYALINE CAST 4 /lpf; URINE MUCUS RARE
[2018-05-29 22:35] LABS: INR 1.49 (0.83-1.09); PROTHROMBIN TIME (PATIENT) 17.6 SEC (9.7-13.0)
[2018-05-29 22:38] LABS: ACTIVATED PTT 34.1 SECONDS (25.2-36.5)
[2018-05-30] MEDS: ACETAMINOPHEN 1000 MG/100 ML VIAL (NON FORMULARY) IVPB PRN (00:18)
[2018-05-30] MEDS: ONDANSETRON 4 MG/2 ML VIAL IVPUSH PRN (05:16)
[2018-05-30] MEDS: DEXTROSE 5%-0.45% SALINE 1,000 ML IV SCH (07:00)
[2018-05-30] MEDS: INSULIN SLIDING SCALE (NOVOLOG) 1 VIAL SQ SCH ×3 (07:01→16:30)
[2018-05-30] MEDS ORDERED: PHYTONADIONE 10 MG/1 ML AMP SQ ONE (07:25)
--- NOTE | 2018-05-30 08:28 | PN ---
Progress Note, Physician Chief Complaint: seen and examined No chest pain or SOB - Current Medication List Current Medications: Active Medications Acetaminophen (Tylenol -) 650 mg PO Q6H PRN PRN Reason: FEVER Acetaminophen (Ofirmev Injection -) 1,000 mg IVPB Q8H PRN PRN Reason: FEVER/PAIN LEVEL 6-10 Last Admin: 05/30/18 00:18 Dose: 1,000 mg Heparin Sodium (Porcine) (Heparin -) 5,000 unit SQ BID [facility] Last Admin: 05/29/18 22:09 Dose: 5,000 unit Metronidazole (Flagyl 500mg Premixed Ivpb -) 500 mg in 100 mls @ 100 mls/hr IVPB TID [facility] Last Admin: 05/30/18 07:01 Dose: 100 mls/hr Dextrose/Sodium Chloride (D5-1/2ns -) 1,000 mls @ 125 mls/hr IV ASDIR [facility] Last Admin: 05/30/18 07:00 Dose: 125 mls/hr Insulin Aspart (Novolog Vial Sliding Scale -) 1 vial SQ ACHS [facility]; Protocol Last Admin: 05/30/18 07:01 Dose: Not Given Ondansetron HCl (Zofran Injection) 4 mg IVPUSH Q6H PRN PRN Reason: NAUSEA AND/OR VOMITING Last Admin: 05/30/18 05:16 Dose: 4 mg - Objective Vital Signs: Vital Signs Temperature 99.2 F 05/30/18 06:00 Pulse Rate 89 05/30/18 06:00 Respiratory Rate 20 05/30/18 06:00 Blood Pressure 151/88 05/30/18 06:00 O2 Sat by Pulse Oximetry (%) 95 05/28/18 22:00 Constitutional: Yes: No Distress HENT: Yes: Other (NGT) Cardiovascular: Yes: Regular Rate and Rhythm Respiratory: Yes: CTA Bilaterally Gastrointestinal: Yes: Soft (no rebound or guarding, decreased bowel sounds) Edema: No Labs: CBC, BMP 05/28/18 07:00 05/29/18 20:11 INR, PTT INR 1.50 (0.83-1.09) H 05/29/18 20:11 Laboratory Tests 05/24/18 05/24/18 05/28/18 06:30 06:30 07:00 WBC 5.8 9.1 Hgb 9.7 L 11.2 L Hct 32.3 L Plt Count 71 L 116 L Sodium 137 Potassium 3.8 BUN Creatinine 1.1 05/28/18 05/29/18 05/29/18 07:00 07:00 20:11 WBC Hgb Hct Plt Count Sodium 136 135 L 135 L Potassium 3.2 L 3.2 L 3.3 L BUN 28 H 37 H 36 H Creatinine 1.8 H 2.8 H 2.7 H Problem List - Problems (1) Small bowel obstruction Code(s): K56.609 - UNSP INTESTNL OBST, UNSP TO PARTIAL VERSUS COMPLETE OBST (2) Alcoholic cirrhosis of liver Code(s): K70.30 - ALCOHOLIC CIRRHOSIS OF LIVER WITHOUT ASCITES (3) Cirrhosis Code(s): K74.60 - UNSPECIFIED CIRRHOSIS OF LIVER Qualifiers: Hepatic cirrhosis type: alcoholic cirrhosis Ascites presence: with ascites Qualified Code(s): K70.31 - Alcoholic cirrhosis of liver with ascites (4) Thrombocytopenia Code(s): D69.6 - THROMBOCYTOPENIA, UNSPECIFIED Assessment/Plan IMP: Small bowel obstruction Acute renal failure- suspect pre-renal ETOH cirrhosis REC: 1. Management SBO as per surgery; planned transfer to tertiary care center. 2. Continue IVF, renal following. Check BMP 3. DVT prophylaxis Remains hemodynamically stable.
[2018-05-30 09:20] LABS: BASO % 0.7 % (0-2.0); EOS % 2.6 % (0-4.5); HEMATOCRIT 35.4 % (35.4-49); LYMPH % 24.2 % (8-40); MCH 30.4 pg (25.7-33.7); MCHC 33.9 g/dl (32.0-35.9); MEAN CELL VOLUME 89.6 fl (80-96); MEAN PLT VOLUME 10.2 fl (7.5-11.1); NEUT % 60.5 % (42.8-82.8); PLATELET COUNT 131 K/MM3 (134-434); RBC 3.95 M/mm3 (4.00-5.60); RDW 13.3 % (11.9-15.9); WHITE BLOOD COUNT 9.9 K/mm3 (4.0-10.0)
[2018-05-30 09:38] LABS: INR 1.49 (0.83-1.09); PROTHROMBIN TIME (PATIENT) 17.7 SEC (9.7-13.0)
[2018-05-30 09:41] LABS: ACTIVATED PTT 36.1 SECONDS (25.2-36.5)
[2018-05-30] MEDS: HEPARIN NA (PORCINE) 5,000 UNITS/ML 1ML VIAL SQ SCH (09:41)
[2018-05-30 10:03] LABS: ALBUMIN 3.8 g/dl (3.4-5.0); ALK PHOS 96 U/L (45-117); ANION GAP 12 MMOL/L (8-16); BILIRUBIN,TOTAL 2.2 mg/dL (0.2-1); BLOOD UREA NITROGEN 40 mg/dL (7-18); CALCIUM 9.1 mg/dL (8.5-10.1); CHLORIDE 94 mmol/L (98-107); CO2 28 mmol/L (21-32); CREATININE 2.8 mg/dL (0.55-1.3); GLUCOSE,RANDOM 130 mg/dL (74-106); POTASSIUM 3.2 mmol/L (3.5-5.1); SGOT/AST 53 U/L (15-37); SGPT/ALT 30 U/L (13-61); SODIUM 134 mmol/L (136-145); TOT PROT 8.8 g/dl (6.4-8.2)
[2018-05-30] MEDS ORDERED: DEXTROSE 5%-0.45% SALINE 1,000 ML IV SCH (10:05)
--- NOTE | 2018-05-30 10:08 | PN ---
Physical Exam: SUBJECTIVE: Patient seen and examined. Said he threw up yesterday, still actively draining NGT under suction. Passed gas today. Net negative at -850. OBJECTIVE: Vital Signs Period Temp Pulse Resp BP Sys/[place] Pulse Ox Last 24 Hr 98.7 F-99.2 F 80-89 20-20 141-151/70-88 Vital Signs Temp 99.2 F 05/30/18 06:00 Pulse 89 05/30/18 06:00 Resp 20 05/30/18 06:00 BP 151/88 05/30/18 06:00 Pulse Ox 95 05/28/18 22:00 Intake & Output 05/29/18 05/29/18 05/30/18 11:59 23:59 11:59 Intake Total 900 2000 Output Total 2350 1400 Balance -1450 600 Intake: IV 700 1500 D5-1/2Ns - 1,000 ml @ 125 1500 mls/hr IV ASDIR [facility] Rx#: [id number] D5-1/2Ns - 1,000 ml @ 75 700 mls/hr IV ASDIR [facility] Rx#: [id number] IVPB 200 500 Oral 0 Output: Gastric Drainage 1350 1000 Urine 400 Void 400 Emesis 1000 Other: Voiding Method Toilet Urinal Urinal GENERAL: The patient is awake, alert, and fully oriented, in no acute distress. ENT: NGT to wall suction LUNGS: Transmitted sounds, CTA b/l HEART: Regular rate and rhythm, S1, S2 ABDOMEN: Soft, nontender, distended, Hyperactive bowel sounds, no guarding EXTREMITIES: 2+ pulses, warm, well-perfused, no edema. NEUROLOGICAL: Cranial nerves II through XII grossly intact. Normal speech, gait not observed. CBC, BMP 05/30/18 08:30 05/30/18 08:30 Laboratory Results - last 24 hr 05/29/18 05/29/18 05/29/18 11:15 11:18 16:35 WBC RBC Hgb Hct MCV MCH MCHC RDW Plt Count MPV Absolute Neuts (auto) Neutrophils % Lymphocytes % Monocytes % Eosinophils % Basophils % Nucleated RBC % PT with INR INR PTT (Actin FS) Sodium Potassium Chloride Carbon Dioxide Anion Gap BUN Creatinine Creat Clearance w eGFR POC Glucometer 134 129 Random Glucose Calcium Total Bilirubin AST ALT Alkaline Phosphatase Total Protein Albumin Urine Color Urine Appearance Urine pH Ur Specific Eastern Urine Protein Urine Glucose (UA) Urine Ketones Urine Blood Urine Nitrite Urine Bilirubin Urine Urobilinogen Ur Leukocyte Esterase Urine WBC (Auto) Urine RBC (Auto) Ur Epithelial Cells Hyaline Casts Urine Mucus U Random Total Protein Ur Random Sodium Ur Random Potassium Ur Random Chloride Urine Creatinine Protein/Creatinin Ratio Blood Type A POSITIVE Antibody Screen Negative 05/29/18 05/29/18 05/29/18 18:30 18:30 18:30 WBC RBC Hgb Hct MCV MCH MCHC RDW Plt Count MPV Absolute Neuts (auto) Neutrophils % Lymphocytes % Monocytes % Eosinophils % Basophils % Nucleated RBC % PT with INR INR PTT (Actin FS) Sodium Potassium Chloride Carbon Dioxide Anion Gap BUN Creatinine Creat Clearance w eGFR POC Glucometer Random Glucose Calcium Total Bilirubin AST ALT Alkaline Phosphatase Total Protein Albumin Urine Color Emy Urine Appearance Clear Urine pH 5.0 D Ur Specific Eastern 1.026 Urine Protein Negative Urine Glucose (UA) Negative Urine Ketones Negative Urine Blood Negative Urine Nitrite Negative Urine Bilirubin Negative Urine Urobilinogen Negative Ur Leukocyte Esterase Trace Urine WBC (Auto) 2 Urine RBC (Auto) <1 Ur Epithelial Cells Rare Hyaline Casts 4 Urine Mucus Rare U Random Total Protein 40.9 H Ur Random Sodium 28 L Ur Random Potassium 49.8 Ur Random Chloride < 11 L Urine Creatinine 357.0 H Protein/Creatinin Ratio 0.110 Blood Type Antibody Screen 05/29/18 05/29/18 05/29/18 20:00 20:11 20:11 WBC RBC Hgb Hct MCV MCH MCHC RDW Plt Count MPV Absolute Neuts (auto) Neutrophils % Lymphocytes % Monocytes % Eosinophils % Basophils % Nucleated RBC % PT with INR 17.60 H 17.80 H INR 1.49 H 1.50 H PTT (Actin FS) 34.1 Sodium 135 L Potassium 3.3 L Chloride 95 L Carbon Dioxide 31 Anion Gap 9 BUN 36 H Creatinine 2.7 H Creat Clearance w eGFR 25.57 POC Glucometer Random Glucose 106 Calcium 8.6 Total Bilirubin AST ALT Alkaline Phosphatase Total Protein Albumin Urine Color Urine Appearance Urine pH Ur Specific Eastern Urine Protein Urine Glucose (UA) Urine Ketones Urine Blood Urine Nitrite Urine Bilirubin Urine Urobilinogen Ur Leukocyte Esterase Urine WBC (Auto) Urine RBC (Auto) Ur Epithelial Cells Hyaline Casts Urine Mucus U Random Total Protein Ur Random Sodium Ur Random Potassium Ur Random Chloride Urine Creatinine Protein/Creatinin Ratio Blood Type Antibody Screen 05/29/18 05/30/1819 22:07 06:55 08:30 WBC RBC Hgb Hct MCV MCH MCHC RDW Plt Count MPV Absolute Neuts (auto) Neutrophils % Lymphocytes % Monocytes % Eosinophils % Basophils % Nucleated RBC % PT with INR INR PTT (Actin FS) Sodium 134 L Potassium 3.2 L Chloride 94 L Carbon Dioxide 28 Anion Gap 12 BUN 40 H Creatinine 2.8 H Creat Clearance w eGFR 24.52 POC Glucometer 140 124 Random Glucose 130 H Calcium 9.1 Total Bilirubin 2.2 H AST 53 H ALT 30 Alkaline Phosphatase 96 Total Protein 8.8 H Albumin 3.8 Urine Color Urine Appearance Urine pH Ur Specific Eastern Urine Protein Urine Glucose (UA) Urine Ketones Urine Blood Urine Nitrite Urine Bilirubin Urine Urobilinogen Ur Leukocyte Esterase Urine WBC (Auto) Urine RBC (Auto) Ur Epithelial Cells Hyaline Casts Urine Mucus U Random Total Protein Ur Random Sodium Ur Random Potassium Ur Random Chloride Urine Creatinine Protein/Creatinin Ratio Blood Type Antibody Screen 05/30/18 05/30/18 08:30 08:30 WBC 9.9 RBC 3.95 L Hgb 12.0 Hct 35.4 MCV 89.6 MCH 30.4 MCHC 33.9 RDW 13.3 Plt Count 131 L MPV 10.2 Absolute Neuts (auto) 6.0 Neutrophils % 60.5 Lymphocytes % 24.2 D Monocytes % 12.0 H Eosinophils % 2.6 Basophils % 0.7 Nucleated RBC % 0 PT with INR 17.70 H INR 1.49 H PTT (Actin FS) 36.1 Sodium Potassium Chloride Carbon Dioxide Anion Gap BUN Creatinine Creat Clearance w eGFR POC Glucometer Random Glucose Calcium Total Bilirubin AST ALT Alkaline Phosphatase Total Protein Albumin Urine Color Urine Appearance Urine pH Ur Specific Eastern Urine Protein Urine Glucose (UA) Urine Ketones Urine Blood Urine Nitrite Urine Bilirubin Urine Urobilinogen Ur Leukocyte Esterase Urine WBC (Auto) Urine RBC (Auto) Ur Epithelial Cells Hyaline Casts Urine Mucus U Random Total Protein Ur Random Sodium Ur Random Potassium Ur Random Chloride Urine Creatinine Protein/Creatinin Ratio Blood Type Antibody Screen Active Medications Generic Name Dose Route Start Last Admin Trade Name Freq PRN Reason Stop Dose Admin Acetaminophen 650 mg 05/23/18 22:50 Tylenol - PO Q6H PRN FEVER Acetaminophen 1,000 mg 05/23/18 23:22 05/30/18 00:18 Ofirmev Injection - IVPB 1,000 mg Q8H PRN Administration FEVER/PAIN LEVEL 6-10 Heparin Sodium (Porcine) 5,000 unit 05/29/18 10:45 05/30/18 09:41 Heparin - SQ 5,000 unit BID [facility] Administration Metronidazole 500 mg in 100 mls @ 100 mls/hr 05/23/18 23:00 05/30/18 07:01 Flagyl 500mg Premixed Ivpb - IVPB 100 mls/hr TID [facility] Administration Insulin Aspart 1 vial 05/24/18 07:00 05/30/18 07:01 Novolog Vial Sliding Scale - SQ Not Given ACHS [facility] Protocol Ondansetron HCl 4 mg 05/23/18 02:32 05/30/18 05:16 Zofran Injection IVPUSH 4 mg Q6H PRN Administration NAUSEA AND/OR VOMITING ASSESSMENT/PLAN: Pt is a 47 y/o male w/ PMH significant for HTN, diabetes, asthma, anemia, liver dz, h/o etoh abuse and morbid obesity(S/P gastric sleeve), presented with abd pain with associated nausea and vomiting x 2 days and found to have SBO still persisting despite conservative management and rising Creatinine from 1.1>>1.8>> 2.8. HTN diabetes asthma anemia liver dz, h/o etoh abuse morbid obesity(S/P gastric sleeve), SBO Anemia Thrombocytopenia hypokalemia Tiff Plan: TIFF Likely in setting of hypovolemia with prenal TIFF (NGT to suction , NPO) Pending labs Pt net negative at -850mls, will correct fluid to make up for deficit-Cont IVF D5/1/2NS @160ml/hr Urinary lytes -FeNa 0.2% (prerenal) Abd US- minimally distended bladder, no stones, or medical renal disease Avoid nephrotoxic drugs BMP Will continue to follow Visit type - Emergency Visit Emergency Visit: Yes ED Registration Date: 05/22/18 Care time: The patient presented to the Emergency Department on the above date and was hospitalized for further evaluation of their emergent condition. - New Patient This patient is new to me today: No - Critical Care Critical Care patient: No - Discharge Referral Referred to [facility] Med P.C.: No
[2018-05-30 10:23] LABS: ANION GAP 12 MMOL/L (8-16); BLOOD UREA NITROGEN 40 mg/dL (7-18); CHLORIDE 96 mmol/L (98-107); CO2 28 mmol/L (21-32); CREATININE 2.7 mg/dL (0.55-1.3); GLUCOSE,RANDOM 127 mg/dL (74-106); POTASSIUM 3.2 mmol/L (3.5-5.1); SODIUM 136 mmol/L (136-145)
[2018-05-30 10:52] LABS: ALBUMIN 3.8 g/dl (3.4-5.0); BILIRUBIN,DIRECT 1.2 mg/dL (0.0-0.2); BILIRUBIN,TOTAL 1.9 mg/dL (0.2-1); TOT PROT 8.9 g/dl (6.4-8.2)
--- NOTE | 2018-05-30 10:53 | PN ---
Progress Note, Physician History of Present Illness: patient ng tube draining a lot was scheduled for surgery - Current Medication List Current Medications: Active Medications Acetaminophen (Tylenol -) 650 mg PO Q6H PRN PRN Reason: FEVER Acetaminophen (Ofirmev Injection -) 1,000 mg IVPB Q8H PRN PRN Reason: FEVER/PAIN LEVEL 6-10 Last Admin: 05/30/18 00:18 Dose: 1,000 mg Heparin Sodium (Porcine) (Heparin -) 5,000 unit SQ BID [facility] Last Admin: 05/30/18 09:41 Dose: 5,000 unit Metronidazole (Flagyl 500mg Premixed Ivpb -) 500 mg in 100 mls @ 100 mls/hr IVPB TID [facility] Last Admin: 05/30/18 07:01 Dose: 100 mls/hr Dextrose/Sodium Chloride (D5-1/2ns -) 1,000 mls @ 160 mls/hr IV ASDIR [facility] Insulin Aspart (Novolog Vial Sliding Scale -) 1 vial SQ ACHS [facility]; Protocol Last Admin: 05/30/18 07:01 Dose: Not Given Ondansetron HCl (Zofran Injection) 4 mg IVPUSH Q6H PRN PRN Reason: NAUSEA AND/OR VOMITING Last Admin: 05/30/18 05:16 Dose: 4 mg - Objective Vital Signs: Vital Signs Temperature 99.2 F 05/30/18 06:00 Pulse Rate 89 05/30/18 06:00 Respiratory Rate 20 05/30/18 06:00 Blood Pressure 151/88 05/30/18 06:00 O2 Sat by Pulse Oximetry (%) 95 05/28/18 22:00 Constitutional: Yes: No Distress, Calm Cardiovascular: Yes: Regular Rate and Rhythm Respiratory: Yes: Regular, CTA Bilaterally, On Nasal O2 Gastrointestinal: Yes: Soft, Other (absent bowel sounds,ng in place,draining) Musculoskeletal: Yes: WNL Extremities: Yes: WNL Neurological: Yes: Alert, Oriented Psychiatric: Yes: Alert, Oriented Labs: CBC, BMP 05/30/18 08:30 05/30/18 08:30 INR, PTT INR 1.49 (0.83-1.09) H 05/30/18 08:30 Assessment/Plan 47 y.o. male with PMH of Gastric sleeve in 2003, SBO s/p small bowel resection, Ex-lap with ROSALINDA, NIDDM, ETOH abuse with liver disease presenting with c/o abdominal pain x 3 days, multiple episodes of nonbloody vomiting and no BM x 2- 3 days with imaging consistent with SBO. Recent low grade fever noted. Fever SBO Alcoholic Liver disease DM s/p Gastric sleeve Hx of SBO s/p resection/ROSALINDA patient now has been afebrile plan continue flayl npo hydration rest as per the team if patient spiked fever will switch to zosyn surgery cancelled because of high risk,plan to transfer
[2018-05-30 11:07] LABS: RETICULOCYTES 1.68 % (0.5-1.5)
--- NOTE | 2018-05-30 11:22 | PN ---
Teaching Attending Note Name of Resident: Nita Soto (Nephrology) ATTENDING PHYSICIAN STATEMENT I saw and evaluated the patient. I reviewed the resident's note and discussed the case with the resident. I agree with the resident's findings and plan as documented. Renal Pt seen and examined at bedside. He remains on ng suction Current Medications Generic Name Dose Route Start Last Admin Trade Name Freq PRN Reason Stop Dose Admin Acetaminophen 650 mg 05/23/18 22:50 Tylenol - PO Q6H PRN FEVER Acetaminophen 1,000 mg 05/23/18 23:22 05/30/18 00:18 Ofirmev Injection - IVPB 1,000 mg Q8H PRN Administration FEVER/PAIN LEVEL 6-10 Heparin Sodium (Porcine) 5,000 unit 05/29/18 10:45 05/30/18 09:41 Heparin - SQ 5,000 unit BID [facility] Administration Metronidazole 500 mg in 100 mls @ 100 mls/hr 05/23/18 23:00 05/30/18 07:01 Flagyl 500mg Premixed Ivpb - IVPB 100 mls/hr TID [facility] Administration Dextrose/Sodium Chloride 1,000 mls @ 160 mls/hr 05/30/18 10:05 D5-1/2ns - IV ASDIR [facility] Insulin Aspart 1 vial 05/24/18 07:00 05/30/18 07:01 Novolog Vial Sliding Scale - SQ Not Given ACHS [facility] Protocol Ondansetron HCl 4 mg 05/23/18 02:32 05/30/18 05:16 Zofran Injection IVPUSH 4 mg Q6H PRN Administration NAUSEA AND/OR VOMITING Laboratory Tests 05/30/18 08:30 Sodium 136 Potassium 3.2 L Creatinine 2.7 H cardio s1s2 reg pulm cleat GI tender, ng tube to suction ext neg edema neuro awake and alert skin tatoos Impression 1. MICHELLE 2. hypokalemia 3. SBO 4. dm 5. htn 6. liver disease - unclear how severe 7. asthma 8. anemia Plan - cont fluids - replace potassium - check mag - renal ultrasound reviewed - lasix as been held - monitor output - check ua - will follow Dr Portillo
--- NOTE | 2018-05-30 11:48 | PN ---
Progress Note (short form) - Note Progress Note: Pt seen this morning. NG tube continues to have large volume output of bile. Pt had one episode of vomiting this morning, per RN, pt leaning on NG tube, improvement after repositioning of pt. No OR today, pt too high risk per anesthesia. Plan to transfer to [facility]. Dr Dotson making arrangements. Keep npo Keep ngtube in place and on suction Please page [phone] with any questions/concerns
[2018-05-30] MEDS: KCL 10 MEQ IVPB 10 MEQ/100 ML INFUS.BAG IVPB SCH ×3 (12:32→17:57)
[2018-05-30 13:00] LABS: MAGNESIUM 2.3 mg/dL (1.8-2.4)
--- NOTE | 2018-05-30 17:02 | PN ---
Progress Note, Physician History of Present Illness: Patient seen and examined at bedside. He stated that he's feeling better, passing flatus, no bm yet. Overnight, NG tube wasn't suctioning but it's fixed in the AM. Per patient, he's being transferred to [facility] for high risk anesthesia. - Current Medication List Current Medications: Active Medications Acetaminophen (Tylenol -) 650 mg PO Q6H PRN PRN Reason: FEVER Acetaminophen (Ofirmev Injection -) 1,000 mg IVPB Q8H PRN PRN Reason: FEVER/PAIN LEVEL 6-10 Last Admin: 05/30/18 00:18 Dose: 1,000 mg Heparin Sodium (Porcine) (Heparin -) 5,000 unit SQ BID [facility] Last Admin: 05/30/18 09:41 Dose: 5,000 unit Metronidazole (Flagyl 500mg Premixed Ivpb -) 500 mg in 100 mls @ 100 mls/hr IVPB TID [facility] Last Admin: 05/30/18 14:31 Dose: 100 mls/hr Dextrose/Sodium Chloride (D5-1/2ns -) 1,000 mls @ 160 mls/hr IV ASDIR [facility] Insulin Aspart (Novolog Vial Sliding Scale -) 1 vial SQ ACHS [facility]; Protocol Last Admin: 05/30/18 12:34 Dose: Not Given Ondansetron HCl (Zofran Injection) 4 mg IVPUSH Q6H PRN PRN Reason: NAUSEA AND/OR VOMITING Last Admin: 05/30/18 05:16 Dose: 4 mg - Objective Vital Signs: Vital Signs Temperature 99.2 F 05/30/18 13:14 Pulse Rate 90 05/30/18 13:14 Respiratory Rate 20 05/30/18 13:14 Blood Pressure 117/76 05/30/18 13:14 O2 Sat by Pulse Oximetry (%) 95 05/28/18 22:00 Constitutional: Yes: No Distress, Calm HENT: Yes: Atraumatic, Normocephalic Cardiovascular: Yes: Regular Rate and Rhythm, Murmur, S1, S2 (high grade ejection murmur) Respiratory: Yes: CTA Bilaterally Gastrointestinal: Yes: Normal Bowel Sounds, Distention (mild), Hypoactive Bowel Sounds Edema: No Neurological: Yes: Alert, Oriented Labs: CBC, BMP 05/30/18 08:30 05/30/18 08:30 INR, PTT INR 1.49 (0.83-1.09) H 05/30/18 08:30 Impression/Plan Impression/Plan: 47 yo h/o HTN, DM, asthma, anemia, liver cirrhosis due to EtOH, morbid obesity s /p gastric sleeve admitted to the hospital for SBO, now being evaluated for anemia and thrombocytopenia. assessment: 1. thrombocytopenia 2. anemia 3. elevated INR plan: 1. thrombocytopenia is improving 2. normal h/h today 3. given vitamin K 5mg SQ once today, cont. to trend INR patient is being transferred to [facility] for high risk surgery. Nas GAUTAM [id number] Visit type - Emergency Visit Emergency Visit: No - New Patient This patient is new to me today: No - Critical Care Critical Care patient: No - Discharge Referral Referred to [facility] Med P.C.: No
[2018-05-30 18:29] VITALS: BP 148/77; PULSE 89; TEMP 99.1
--- NOTE | 2018-05-30 18:57 | PN ---
Teaching Attending Note Name of Resident: Nas El ATTENDING PHYSICIAN STATEMENT I saw and evaluated the patient. I reviewed the resident's note and discussed the case with the resident. I agree with the resident's findings and plan as documented. SUBJECTIVE: Patient seen Awaiting transfer to [facility] in view of high risk anesthesia Received 5 mg sq of vitamin K in view of elevated INR. 47 yo presented with SBO assessment: 1. thrombocytopenia 2. anemia 3. elevated INR- given SQ vitamin K 4. SBO - for exploratory lap plan: 1. thrombocytopenia is improving 2. normal h/h today 3. given vitamin K 5mg SQ once today, cont. to trend INR patient is being transferred to [facility] for high risk anesthesia OBJECTIVE: ASSESSMENT AND PLAN:
[2018-05-31 07:23] LABS: SERUM IRON SATURATION 24 % (15-55); TOTAL IRON BINDING CAPACITY 276 ug/dL (250-450); UIBC 211 ug/dL (111-343)
== END 2018-05-30 20:14 | disposition short-term general hospital (02) | DRG 247 ==
LOC: JER 12:02 → JERBED 18:52 → J6S 05-23 15:04
PROVIDERS: ADMIT Internal Medicine; ATTEND Internal Medicine
PROC: 0D9670Z Drainage of Stomach with Drainage Device, Via Natural or Artificial Opening (ICD-10-PCS; principal; 2018-05-29)
DX: K56.609 Unspecified intestinal obstruction, unspecified as to partial versus complete obstruction (principal); K56.2 Volvulus; N17.9 Acute kidney failure, unspecified; E83.42 Hypomagnesemia; I11.0 Hypertensive heart disease with heart failure; I50.32 Chronic diastolic (congestive) heart failure; D69.59 Other secondary thrombocytopenia; D68.8 Other specified coagulation defects; E66.01 Morbid (severe) obesity due to excess calories; K70.30 Alcoholic cirrhosis of liver without ascites; K70.10 Alcoholic hepatitis without ascites; E11.9 Type 2 diabetes mellitus without complications; E87.6 Hypokalemia; E86.1 Hypovolemia; Z68.36 Body mass index [BMI] 36.0-36.9, adult; D64.9 Anemia, unspecified; J45.909 Unspecified asthma, uncomplicated; Z98.84 Bariatric surgery status; F10.20 Alcohol dependence, uncomplicated; Z87.891 Personal history of nicotine dependence; Z79.4 Long term (current) use of insulin; Z90.49 Acquired absence of other specified parts of digestive tract; R50.9 Fever, unspecified; K43.9 Ventral hernia without obstruction or gangrene; K66.0 Peritoneal adhesions (postprocedural) (postinfection)
CPT/HCPCS: 36415; 71045-TC-FY; 74018-TC-FY; 74019-TC-FY; 74176-TC; 74177-TC; 76775-TC; 76856-TC; 80048; 80053; 80061; 80076; 81003; 81015; 82105; 82140; 82436; 82550; 82570; 82607; 82728; 82746; 82962; 83010; 83036; 83540; 83550; 83605; 83615; 83721; 83735; 83880; 84133; 84156; 84300; 84443; 84466; 84484; 85025; 85044; 85610; 85730; 86850; 86900; 86901; 87040; 93005; 93010; 93306-TC; 99284-25; J0131; J1644; Q9967

== ENCOUNTER 2018-08-29 02:22 | Emergency (ER) | payer OTHER ==
[2018-08-29 04:04] VITALS: BMI 32.5
[2018-08-29] MEDS ORDERED: ACETAMINOPHEN 1000 MG/100 ML VIAL (NON FORMULARY) IVPB ONE (04:35)
[2018-08-29] MEDS ORDERED: SODIUM CHLORIDE 0.9% 500 ML INFUS.BAG IV ONE (04:35)
--- NOTE | 2018-08-29 04:49 | PDOC ---
History of Present Illness - General Chief Complaint: Cold Symptoms Stated Complaint: FEVER Time Seen by Provider: 08/29/18 04:36 - History of Present Illness Initial Comments: The pt is a 48M w/ a history of diet controlled DM, EtOH liver disease, gastric sleeve, ROSALINDA x3, migraines, and HTN who presents for evaluation of 1 day of fevers/chills, malaise, and productive cough. The pt reports Tmax at home to 101.5, cough x1 day w/ clear sputum. Denies sick contacts. The patient has not tried taking anything for his symptoms. He denies vision changes, chest pain, SOB, N/V/C/D, dysuria, hematuria, blood in his stool, or changes in sensation 08/29/18 06:03 Past History - Past Medical History Allergies/Adverse Reactions: Allergies Allergy/AdvReac Type Severity Reaction Status Date / Time Penicillins Allergy Severe Hives Verified 08/29/18 04:03 Home Medications: Ambulatory Orders Enalapril Maleate [Vasotec] 40 mg PO DAILY 03/16/18 Biotin 10,000 mcg PO BID 03/18/18 Cyclobenzaprine HCl [Flexeril 10 mg] 10 mg PO DAILY 03/18/18 Ferrous Sulfate 325 mg PO BID 03/18/18 Folic Acid - 1 mg PO DAILY #30 tablet 03/20/18 Furosemide [Lasix] 40 mg PO DAILY #30 tablet 03/20/18 Thiamine HCl [Vitamin B1 -] 100 mg PO DAILY #30 tablet 03/20/18 Levofloxacin [Levaquin] 750 mg PO DAILY 4 Days #4 tablet 08/29/18 Asthma: Yes COPD: No Diabetes: Yes HTN: Yes Liver Disease: Yes - Surgical History Abdominal Surgery: Yes (gastric sleeve) - Immunization History Immunization Up to Date: Yes - Suicide/Smoking/Psychosocial Hx Smoking History: Former smoker Have you smoked in the past 12 months: Yes Number of Cigarettes Smoked Daily: 10 Information on smoking cessation initiated: No Hx Alcohol Use: No Drug/Substance Use Hx: No Substance Use Type: None Hx Substance Use Treatment: No Review of Systems - Review of Systems Able to Perform ROS?: Yes Comments:: GENERAL/CONSTITUTIONAL: No weakness HEAD, EYES, EARS, NOSE AND THROAT: No change in vision. No ear pain or discharge CARDIOVASCULAR: No chest pain or shortness of breath RESPIRATORY: Denies hemoptysis GASTROINTESTINAL: No nausea, vomiting, diarrhea or constipation. GENITOURINARY: No dysuria, frequency, or change in urination MUSCULOSKELETAL: No joint or muscle swelling or pain. No neck or back pain SKIN: No rash NEUROLOGIC: No vertigo, loss of consciousness, or change in strength/sensation ENDOCRINE: No increased thirst. No abnormal weight change ALLERGIC/IMMUNOLOGIC: No hives or skin allergy 08/29/18 06:06 Is the patient limited Syriac proficient: No *Physical Exam - Vital Signs Last Vital Signs Temp Pulse Resp BP Pulse Ox 99.1 F 110 H 21 H 135/81 97 08/29/18 02:22 08/29/18 02:22 08/29/18 02:22 08/29/18 02:22 08/29/18 02:22 - Physical Exam Comments: GENERAL: Awake, alert, and oriented to person/place/time, in no acute distress HEAD: No signs of trauma, normocephalic, atraumatic EYES: PERRLA, EOMI, sclera anicteric, conjunctiva clear ENT: Hearing grossly normal, nares patent, oropharynx clear without exudates. Moist mucosa LUNGS: No distress, speaks full sentences, clear to auscultation bilaterally HEART: Regular rate and rhythm, normal S1 and S2, no murmurs appreciated, peripheral pulses normal and equal bilaterally ABDOMEN: Soft, well healed midline incisions, nontender, normoactive bowel sounds. No guarding, no rebound. EXTREMITIES: Normal inspection, Normal range of motion, no edema. No clubbing or cyanosis NEUROLOGICAL: Cranial nerves II through XII grossly intact. Normal speech, no focal sensorimotor deficits SKIN: Warm, Dry 08/29/18 06:08 ED Treatment Course - RADIOLOGY Radiology Studies Ordered: Category Date Time Status CHEST PA & LAT [RAD] Stat Radiology 08/29/18 04:35 Ordered Medical Decision Making - Medical Decision Making The pt is a 48M w/ a history of HTN, diet controlled DM, EtOH induced liver disease, and migraines who presents for 1 day of fevers/chills, malaise, and productive cough ED Course Will cover for PNA as pt has multiple comorbidities Levofloxacin 750mg IV once here IVF Ofirmev Rx for 4 days of Levofloxacin 750mg PO daily -Sent to pt's pharmacy 08/29/18 04:41 Pending CXR 08/29/18 06:03 CXR w/o evidence of infiltrates or PNX Plan for D/C w/ PCP f/u Discharge instructions and return precautions given Pt in agreement and verbalized understanding Dispo: home 08/29/18 07:06 *DC/Admit/Observation/Transfer Diagnosis at time of Disposition: Viral syndrome, Cough Pneumonia Qualifiers: Pneumonia type: due to unspecified organism Laterality: unspecified laterality Lung location: unspecified part of lung Qualified Code(s): J18.9 - Pneumonia, unspecified organism - Discharge Dispostion Disposition: HOME Condition at time of disposition: Stable Decision to Admit order: No - Prescriptions Prescriptions: Levofloxacin [Levaquin] 750 mg PO DAILY 4 Days #4 tablet - Referrals Referrals: Aman Cantu MD [Staff Physician] - - Patient Instructions Printed Discharge Instructions: DI for Viral Syndrome - Post Discharge Activity
[2018-08-29] MEDS ORDERED: ACETAMINOPHEN INJECTION 100 ML IVPB ONE (05:32)
--- NOTE | 2018-08-29 06:51 | PDOC ---
Documentation entered by Joellen Frederick SCRIBE, acting as scribe for Linda Roberts DO. Linda Roberts DO: This documentation has been prepared by the Yoly parson Daisy, SCRIBE, under my direction and personally reviewed by me in its entirety. I confirm that the documentation accurately reflects all work , treatment, procedures, and medical decision making performed by me. Attending Attestation - Resident Resident Name: Melo Irene - ED Attending Attestation I have performed the following: I have examined & evaluated the patient, The case was reviewed & discussed with the resident, I agree w/resident's findings & plan - HPI HPI: 08/29/18 04:51 The patient is a 47 YOM with a PMH of gastric sleeve, SBO, NIDDM, and EtOH abuse who presents to the ED with fever of 101..5. Denies cp, sob, N/V/D/C or urinary symptoms Allergies: Penicillin - Physicial Exam PE: 08/29/18 04:57 Agree with resident's exam. - Medical Decision Making 08/29/18 06:47 48-year-old male with fevers and admitted history of alcohol use Chest x-ray shows no focal infiltrate In light of patient's fevers, alcohol use and cough he will be discharged on Levaquin
[2018-08-29 08:20] VITALS: BP 135/84; PULSE 89; TEMP 98.4
== END 2018-08-29 08:21 | disposition home or self-care (01) ==
LOC: JER 02:22
PROC: 3E03329 Introduction of Other Anti-infective into Peripheral Vein, Percutaneous Approach (ICD-10-PCS; principal; 2018-08-29)
PROC: 3E033NZ Introduction of Analgesics, Hypnotics, Sedatives into Peripheral Vein, Percutaneous Approach (ICD-10-PCS; 2018-08-29)
DX: J18.9 Pneumonia, unspecified organism (principal); I10 Essential (primary) hypertension; E11.9 Type 2 diabetes mellitus without complications; G43.909 Migraine, unspecified, not intractable, without status migrainosus; K70.9 Alcoholic liver disease, unspecified
CPT/HCPCS: 71046-TC-FY; 96365; 96375; 99282-25; J0131

== ENCOUNTER 2019-11-25 19:10 | Inpatient (IN) | payer OTHER ==
--- NOTE | 2019-11-25 19:41 | PDOC ---
History of Present Illness - General Chief Complaint: Pain Stated Complaint: ABDOMINAL PAIN Time Seen by Provider: 11/25/19 19:38 History Source: Patient Exam Limitations: No Limitations - History of Present Illness Initial Comments: 11/25/19 19:38 PCP: Aman Cantu HPI: 49yo M PMH Obesity, DM, ETOH liver disease / cirrhosis with prior tap for ascites, s/p gastric sleeve, ROSALINDA x3 with ?spontaneous GIB from SBO, migraines, HTN and HLD presenting with abdominal pain for 1 day. Patient endorses waking up with abdominal pain, constant, progressive, non-radiating, located in epi gastrium / periumbilical, sharp in quality, without identified exacerbating / relieving properties. Associated with 2 episodes of emesis this morning with a dark red color (no recent red foods), also with 2 episodes of loose stool with dark color (no iron / bismuths). Feels as though his abdomen is distended "a little" more than usual. States this sensation feels similar to prior SBOs. Also endorses being told that he had a spontaneous lower GI bleed from adhesions in the past. Has had surgery here as well as two other hospitals for SBO. Follows with Dr. Green (GI) at [facility]. All: PCN > anaphylaxis Meds: Per chart (500 Metformin BID new in past year) PMH: As above PSH: Multiple ROSALINDA for SBO, s/p gastric sleeve Past History - Travel History Traveled outside of the country in the last 30 days: No Close contact w/someone who was outside of country & ill: No - Medical History Allergies/Adverse Reactions: Allergies Allergy/AdvReac Type Severity Reaction Status Date / Time Penicillins Allergy Severe Hives Verified 11/25/19 19:26 Home Medications: Ambulatory Orders Enalapril Maleate [Vasotec] 40 mg PO DAILY 03/16/18 Biotin 10,000 mcg PO BID 03/18/18 Cyclobenzaprine HCl [Flexeril 10 mg] 10 mg PO DAILY 03/18/18 Ferrous Sulfate 325 mg PO BID 03/18/18 Folic Acid - 1 mg PO DAILY #30 tablet 03/20/18 Furosemide [Lasix] 40 mg PO DAILY #30 tablet 03/20/18 Thiamine HCl [Vitamin B1 -] 100 mg PO DAILY #30 tablet 03/20/18 Metformin HCl [Glucophage] 500 mg PO BID 11/25/19 Asthma: Yes COPD: No Diabetes: Yes HTN: Yes Liver Disease: Yes - Surgical History Abdominal Surgery: Yes (gastric sleeve) - Immunization History Immunization Up to Date: Yes - Psycho-Social/Smoking History Smoking History: Never smoked Have you smoked in the past 12 months: Yes Number of Cigarettes Smoked Daily: 10 Information on smoking cessation initiated: No - Substance Abuse Hx (Audit-C & DAST Scrn) How often the patient has a drink containing alcohol: Monthly or less How often the patient has six or more drinks on one occasion: Never Score: In Men: 4 or > Positive; In Women: 3 or > Positive: 1 Screen Result (Pos requires Nsg. Audit-10AR): Negative In the last yr the pt used illegal drug/Rx for NonMed reason: No Score: Yes response is considered Positive: 0 Screen Result (Positive result requires Nsg. DAST-10): Negative Review of Systems - Review of Systems Able to Perform ROS?: Yes Is the patient limited Serbian proficient: Yes Constitutional: No: Chills, Diaphoresis, Fever, Malaise, Weakness HEENTM: No: Nose Congestion, Throat Pain Respiratory: No: Cough, Shortness of Breath, Wheezing, Productive cough Cardiac (ROS): Yes: Lightheadedness. No: Chest Pain, Edema, Irregular Heart Rate, Palpitations, Syncope, Chest Tightness ABD/GI: Yes: See HPI, Diarrhea (soft, dark stools x2 today), Nausea, Vomiting. No: Blood Streaked Bowels, Constipated, Rectal Bleeding, Tarry Stools : No: Burning, Dysuria, Frequency Musculoskeletal: No: Back Pain, Muscle Pain, Muscle Weakness Integumentary: No: Bruising, Pallor, Pruritus Neurological: No: Headache, Numbness, Tingling, Weakness Psychiatric: No: Stressors, Change in Appetite Endocrine: No: Increased Thirst, Increased Urine Hematologic/Lymphatic: No: Anemia, Blood Clots, Easy Bleeding All Other Systems: Reviewed and Negative *Physical Exam - Vital Signs Last Vital Signs Temp Pulse Resp BP Pulse Ox 100.4 F H 110 H 20 143/79 99 11/25/19 19:22 11/25/19 19:22 11/25/19 19:22 11/25/19 19:22 11/25/19 19:22 - Physical Exam 11/25/19 19:39 Vitals reviewed, febrile, tachycardic 11/25/19 20:05 GEN: Obese, appears stated age, NAD, uncomfortable. AAOx3. HEENT: NCAT, EOMI, PERRL. +Sclera icteric, non-injected. No facial asymmetry. Moist mucous membranes. Normal voice. Trachea midline. CV: RRR, S1/S2, no murmurs / rubs / gallops appreciated. LUNG: CTABL, normal work of breathing. No wheezes, rales, rhonchi. No cough. Speaking full sentences. GI: Soft, mildly distended, TTP in mid-upper abdomen, non-peritoneal, no gross fluid wave, +BS, no guarding, no rebound. No masses. Multiple surgical scars from prior exlaps / laparoscopic EXTREMITIES: 2+ distal pulses. No clubbing / cyanosis / edema. No gross deformity in any extremity. SKIN: Warm, dry, no rashes appreciated, non-jaundiced. PSYCH: Normal mood and affect. Cooperative and appropriate. NEURO: CN grossly intact. Moving all extremities well. Normal strength and sensation grossly. ED Treatment Course - LABORATORY CBC & Chemistry Diagram: 11/28/19 07:05 11/28/19 07:05 Medical Decision Making - Medical Decision Making 11/25/19 19:40 49yo M PMH Obesity, DM, ETOH liver disease / cirrhosis with prior tap for ascites, s/p gastric sleeve, ROSALINDA x3 with ?spontaneous GIB from SBO, migraines, HTN and HLD presenting with abdominal pain for 1 day. History notable for multiple abdominal surgeries at several hospitals, prior GIB, multiple ROSALINDA, s/p gastric sleeve. Exam notable for mild tachycardia, fever, abdominal pain. DDX: SBO, SBP, GIB (PUD, spontaneous bleed), pancreatitis, meets sepsis criteria with likely GI source. Patient will likely require GI / Surgery evaluation after workup results. - CBC, CMP, Lipase, Lactate, Trop, T&S, Coags, BCx - UA, UCx - CXR, EKG - Pepcid, Zofran, 30cc/kg NS, Ofirmev - Cardio pulmonary monitoring 11/25/19 21:48 - Patient went to the restroom, jennifer blood mixed with stool - s/p Oral contrast, plan for CTAP with contrast at 10:20 - Protonix ordered 11/25/19 23:00 - CTAP negative for SBO (dry scan given renal function) - Patient admitted for GIB, anemia, MICHELLE, hemodynamically stable Dispo: Admit Med / Surg Discharge - Discharge Information Problems reviewed: Yes Clinical Impression/Diagnosis: Renal insufficiency, Elevated troponin Gastrointestinal bleed Qualifiers: GI bleed type/associated pathology: unspecified gastrointestinal hemorrhage type Qualified Code(s): K92.2 - Gastrointestinal hemorrhage, unspecified Anemia Qualifiers: Anemia type: unspecified type Qualified Code(s): D64.9 - Anemia, unspecified Condition: Fair - Follow up/Referral - Patient Discharge Instructions - Post Discharge Activity
[2019-11-25] MEDS ORDERED: SODIUM CHLORIDE 3,062 ML IV ONE (19:56)
[2019-11-25] MEDS ORDERED: FAMOTIDINE 20 MG/50 ML IVPB 20 MG/50 ML MG IVPB ONE ×2 (20:09→20:39)
[2019-11-25] MEDS ORDERED: ACETAMINOPHEN 1000 MG/100 ML VIAL (NON FORMULARY) IVPB ONE (20:09)
[2019-11-25] MEDS ORDERED: ONDANSETRON 4 MG/2 ML VIAL IVPUSH ONE (20:09)
[2019-11-25] MEDS ORDERED: ACETAMINOPHEN INJECTION 100 ML IVPB ONE (20:18)
[2019-11-25 20:47] LABS: INR 1.59 (0.83-1.09); PROTHROMBIN TIME (PATIENT) 18.9 SEC (9.7-13.0)
[2019-11-25 20:50] LABS: ACTIVATED PTT 26.3 SECONDS (25.2-36.5)
[2019-11-25] MEDS ORDERED: PANTOPRAZOLE SODIUM 40 MG VIAL IVPUSH ONE (21:47)
[2019-11-25 21:54] LABS: ALBUMIN 2.6 g/dl (3.4-5.0); BILIRUBIN,TOTAL 10.9 mg/dL (0.2-1); BLOOD UREA NITROGEN 22.6 mg/dL (7-18); CALCIUM 8.7 mg/dL (8.5-10.1); CREATININE 1.7 mg/dL (0.55-1.3); POTASSIUM 4.9 mmol/L (3.5-5.1); TOT PROT 7.1 g/dl (6.4-8.2)
[2019-11-25] MEDS ORDERED: PANTOPRAZOLE SODIUM 40 MG VIAL ONE (21:54)
[2019-11-25] MEDS ORDERED: PANTOPRAZOLE SODIUM 40 MG/100 ML BAG IVPB ONE (22:24)
[2019-11-25 22:36] LABS: EPI CELLS 8 /uL (0-25.1); HYALINE CASTS 5 /uL (0-3.1); URINE APPEARANCE CLEAR; URINE BILIRUBIN 3+ (NEGATIVE); URINE COLOR DK YELLOW; URINE GLUCOSE (UA) TRACE (NEGATIVE); URINE KETONE TRACE (NEGATIVE); URINE LEUK ESTERASE TRACE (NEGATIVE); URINE NITRITE POSITIVE (NEGATIVE); URINE PROTEIN TRACE (NEGATIVE); URINE RBC 24 /uL (0-23.9); URINE WBC 9 /uL (0-25.8)
[2019-11-25 22:36] LABS: BASO % 0.3 % (0-2.0); EOS % 0.1 % (0-4.5); HEMATOCRIT 26.2 % (35.4-49); HEMOGLOBIN 8.8 GM/dL (11.7-16.9); LYMPH % 7.9 % (8-40); MCH 30.9 pg (25.7-33.7); MCHC 33.5 g/dl (32.0-35.9); MEAN CELL VOLUME 92.3 fl (80-96); MEAN PLT VOLUME 10.2 fl (7.5-11.1); MONO % 9.8 % (3.8-10.2); NEUT % 81.9 % (42.8-82.8); RBC 2.84 M/mm3 (4.00-5.60); RDW 17.7 % (11.9-15.9); WHITE BLOOD COUNT 8.1 K/mm3 (4.0-10.0)
[2019-11-25 23:13] LABS: PLATELET COUNT 38 K/MM3 (134-434); PLATELET ESTIMATE DECREASED
--- NOTE | 2019-11-25 23:20 | PDOC ---
Documentation entered by Tony Nogueira SCRIBE, acting as scribe for Loretta Posada MD. Loretta Posada MD: This documentation has been prepared by the Melvin parson Xhesika, SCRIBE, under my direction and personally reviewed by me in its entirety. I confirm that the documentation accurately reflects all work, treatment, procedures, and medical decision making performed by me. Attending Attestation - Resident Resident Name: Dany Barton - ED Attending Attestation I have performed the following: I have examined & evaluated the patient, The case was reviewed & discussed with the resident, I agree w/resident's findings & plan, Exceptions are as noted - HPI HPI: 11/25/19 20:04 The patient is a 49y/o M with a PMH of DM, EtOH liver disease / cirrhosis with prior tap, s/p gastric sleeve, ORSALINDA x3 with ?spontaneous GIB, migraines, HTN and HLD who presents to the ED with 1 day of abdominal pain. Patient reports 2 episodes of emesis and dark stool. The patient denies chest pain, shortness of breath, headache and dizziness. Denies fever, chills, cough. Denies dysuria, frequency, urgency and hematuria. Allergies: Penicillins PCP:Aman Cantu - Physicial Exam PE: 11/25/19 22:02 tall 49 yo male p/w abdominal pain head ncat neck supple lungs cta b/l cvs [id number] abdomen well healed midline incision, ++tenderness periumbilcal area extremities no erythema no flank pain skin warm and dry neuro axox4, no gross focal neuro deficits - Medical Decision Making 11/25/19 22:04 pt had BRBPR while in ED 11/26/19 00:48 Creatinine was stable at 1.7 Abdomen pelvis without contrast was done and the findings are No bowel obstruction or inflammation, normal appendix negative for diverticulitis or colitis No intraperitoneal air or free fluid Liver is enlarged and fatty Spleen is also mildly enlarged Prominent upper abdominal vessels noted that likely varices, this may be history of portal hypertension sclerosis No acute gallbladder abnormalities Normal pancreas No urinary tract obstruction Osseous structures are intact 11/26/19 02:13 pt has GI bleed, will be admitted Discharge - Discharge Information Problems reviewed: Yes Clinical Impression/Diagnosis: Renal insufficiency, Elevated troponin Gastrointestinal bleed Qualifiers: GI bleed type/associated pathology: unspecified gastrointestinal hemorrhage type Qualified Code(s): K92.2 - Gastrointestinal hemorrhage, unspecified Anemia Qualifiers: Anemia type: unspecified type Qualified Code(s): D64.9 - Anemia, unspecified Condition: Fair - Follow up/Referral - Patient Discharge Instructions - Post Discharge Activity
[2019-11-26 00:15] LABS: URINE BACTERIA 65 /uL (0-1359)
[2019-11-26 04:04] LABS: HEMATOCRIT 22.9 % (35.4-49); HEMOGLOBIN 7.7 GM/dL (11.7-16.9); MCH 31.3 pg (25.7-33.7); MCHC 33.8 g/dl (32.0-35.9); MEAN CELL VOLUME 92.4 fl (80-96); MEAN PLT VOLUME 10.9 fl (7.5-11.1); PLATELET COUNT 37 K/MM3 (134-434); RBC 2.48 M/mm3 (4.00-5.60); RDW 17.7 % (11.9-15.9); WHITE BLOOD COUNT 8.6 K/mm3 (4.0-10.0)
[2019-11-26 05:39] VITALS: BMI 38.3
[2019-11-26] MEDS ORDERED: ACETAMINOPHEN 650 MG SUPP.RECT RC PRN (08:03)
[2019-11-26] MEDS: DEXTROSE 5%-0.45% SALINE 1,000 ML IV SCH (10:14)
[2019-11-26] MEDS: PANTOPRAZOLE SODIUM 40 MG VIAL IVPUSH SCH (10:14)
--- NOTE | 2019-11-26 11:57 | CON.ID ---
Consult Consult Specialty:: infectious diseases Referred by:: Reason for Consultation:: abd pain,vomiting,bleeding per rectum - History of Present Illness Chief Complaint: hematemesis,bleeding per rectum History of Present Illness: 49yo M PMH Obesity, DM, ETOH liver disease / cirrhosis with prior tap for ascites, s/p gastric sleeve, ROSALINDA x3 with ?spontaneous GIB from SBO, migraines, HTN and HLD presenting with abdominal pain for 1 day. Patient endorses waking up with abdominal pain, constant, progressive, non-radiating, located in epigastrium / periumbilical, sharp in quality, without identified exacerbating / relieving properties. Associated with emesis dark red color also with 2 episodes of loose stool with dark color . Feels as though his abdomen is distended "a little" more than usual. States this sensation feels similar to prior SBOs. Also endorses being told that he had a spontaneous lower GI bleed from adhesions in the past. Has had surgery here as well as two other hospitals for SBO. mentions that he just went to the toilet and still has bleeding - History Source History Provided By: Patient Limitations to Obtaining History: No Limitations - Past Medical History Cardio/Vascular: Yes: HTN Pulmonary: Yes: Asthma Gastrointestinal: Yes: Other (SBO) Psych: Yes: Addictions (ETOH abuse) Endocrine: Yes: Diabetes Mellitus (States diet controlled: off insulin and oral therapy x 1 year per patient) - Past Surgical History Past Surgical History: Yes: Bariatric Surgery (gastric sleeve (2007 or 2008)) - Alcohol/Substance Use Hx Alcohol Use: No History of Substance Use: reports: None - Smoking History Smoking history: Never smoked Have you smoked in the past 12 months: Yes Aproximately how many cigarettes per day: 10 - Social History Usual Living Arrangement: With Spouse ADL: Independent Occupation: Unemployed History of Recent Travel: No Home Medications - Allergies Allergies/Adverse Reactions: Allergies Allergy/AdvReac Type Severity Reaction Status Date / Time Penicillins Allergy Severe Hives Verified 11/25/19 19:26 - Home Medications Home Medications: Ambulatory Orders Enalapril Maleate [Vasotec] 40 mg PO DAILY 03/16/18 Biotin 10,000 mcg PO BID 03/18/18 Cyclobenzaprine HCl [Flexeril 10 mg] 10 mg PO DAILY 03/18/18 Ferrous Sulfate 325 mg PO BID 03/18/18 Folic Acid - 1 mg PO DAILY #30 tablet 03/20/18 Furosemide [Lasix] 40 mg PO DAILY #30 tablet 03/20/18 Thiamine HCl [Vitamin B1 -] 100 mg PO DAILY #30 tablet 03/20/18 Metformin HCl [Glucophage] 500 mg PO BID 11/25/19 Review of Systems - Review of Systems Constitutional: reports: Other Eyes: reports: No Symptoms HENT: reports: No Symptoms Neck: reports: No Symptoms Cardiovascular: reports: No Symptoms Respiratory: reports: No Symptoms Gastrointestinal: reports: Abdominal Pain, Rectal Bleeding, Vomiting Blood, Other Genitourinary: reports: No Symptoms Musculoskeletal: reports: No Symptoms Integumentary: reports: No Symptoms Neurological: reports: No Symptoms Endocrine: reports: No Symptoms Hematology/Lymphatic: reports: No Symptoms Physical Exam Vital Signs: Vital Signs Temperature 100.7 F H 11/26/19 03:25 Pulse Rate 104 H 11/26/19 03:25 Respiratory Rate 18 11/26/19 03:25 Blood Pressure 118/59 L 11/26/19 03:25 O2 Sat by Pulse Oximetry (%) 100 11/26/19 03:25 Constitutional: Yes: Calm, Mild Distress, Obese Eyes: Yes: Conjunctiva Clear HENT: Yes: Atraumatic, Normocephalic Neck: Yes: Supple, Trachea Midline Cardiovascular: Yes: Regular Rate and Rhythm Respiratory: Yes: Regular, CTA Bilaterally Gastrointestinal: Yes: Soft, Ascites, Hypoactive Bowel Sounds Musculoskeletal: Yes: WNL Extremities: Yes: WNL Neurological: Yes: Alert, Oriented Psychiatric: Yes: Alert, Oriented Labs: CBC, BMP 11/26/19 03:50 11/25/19 20:20 Imaging - Results Chest X-ray: Report Reviewed, Image Reviewed Cat Scan: Report Reviewed, Image Reviewed Assessment/Plan this patient with multiple medical issues who has known cirrhosis coming in with hematemesis and bleeding per rectum awaiting for the cx reports at the moment will hold of starting any abx continue transfusion rest as per the team
--- NOTE | 2019-11-26 12:05 | EKG ---
Test Reason : Blood Pressure : / mmHG Vent. Rate : 102 BPM Atrial Rate : 102 BPM P-R Int : 148 ms QRS Dur : 082 ms QT Int : 364 ms P-R-T Axes : 054 045 030 degrees QTc Int : 474 ms POOR DATA QUALITY, INTERPRETATION MAY BE ADVERSELY AFFECTED SINUS TACHYCARDIA OTHERWISE NORMAL ECG WHEN COMPARED WITH ECG OF 22-MAY-2018 14:11, NONSPECIFIC T WAVE ABNORMALITY NO LONGER EVIDENT IN LATERAL LEADS Confirmed by Adrian Lawrence MD ([id number]) on 11/26/2019 12:05:06 PM Referred By: Confirmed By:Adrian Lawrence MD
--- NOTE | 2019-11-26 13:27 | CON.GI ---
Consult Consult Specialty:: GI - History of Present Illness History of Present Illness: 49 y/o male with PMH oa Alcohol cirrhosis and SBO was amitted with diffuse abdominal pain associated with elevated lactic acid and troponinComplains of bloody stool. On rectal eaxamination today this was normal, no evidence of bleeding. Pt has chronic anemia.S/P EGD 2018--s/p gastric sleeve and grade II varices. He is on iron - Past Medical History Cardio/Vascular: Yes: HTN Pulmonary: Yes: Asthma Gastrointestinal: Yes: Other (SBO) Psych: Yes: Addictions (ETOH abuse) Endocrine: Yes: Diabetes Mellitus (States diet controlled: off insulin and oral therapy x 1 year per patient) - Past Surgical History Past Surgical History: Yes: Bariatric Surgery (gastric sleeve (2007 or 2008)) - Alcohol/Substance Use Hx Alcohol Use: No History of Substance Use: reports: None - Smoking History Smoking history: Never smoked Have you smoked in the past 12 months: Yes Aproximately how many cigarettes per day: 10 - Social History Usual Living Arrangement: With Spouse ADL: Independent Occupation: Unemployed History of Recent Travel: No Home Medications - Allergies Allergies/Adverse Reactions: Allergies Allergy/AdvReac Type Severity Reaction Status Date / Time Penicillins Allergy Severe Hives Verified 11/25/19 19:26 - Home Medications Home Medications: Ambulatory Orders Enalapril Maleate [Vasotec] 40 mg PO DAILY 03/16/18 Biotin 10,000 mcg PO BID 03/18/18 Cyclobenzaprine HCl [Flexeril 10 mg] 10 mg PO DAILY 03/18/18 Ferrous Sulfate 325 mg PO BID 03/18/18 Folic Acid - 1 mg PO DAILY #30 tablet 03/20/18 Furosemide [Lasix] 40 mg PO DAILY #30 tablet 03/20/18 Thiamine HCl [Vitamin B1 -] 100 mg PO DAILY #30 tablet 03/20/18 Metformin HCl [Glucophage] 500 mg PO BID 11/25/19 Physical Exam-GI Vital Signs: Vital Signs Temperature 100.7 F H 11/26/19 03:25 Pulse Rate 104 H 11/26/19 03:25 Respiratory Rate 18 11/26/19 03:25 Blood Pressure 118/59 L 11/26/19 03:25 O2 Sat by Pulse Oximetry (%) 100 11/26/19 03:25 Constitutional: Yes: Well Nourished Eyes: Yes: Conjunctiva Clear HENT: Yes: Atraumatic Neck: Yes: Supple Cardiovascular: Yes: Regular Rate and Rhythm Respiratory: Yes: CTA Bilaterally ...Palpate: Yes: Soft. No: Firm/Rigid, Guarding, Hepatomegaly, Mass, Pulsatile Mass, Splenomegaly, Tenderness Labs: CBC, BMP 11/26/19 03:50 11/25/19 20:20 INR, PTT INR 1.59 (0.83-1.09) H 11/25/19 20:20 Problem List - Problems (1) Gastrointestinal bleed Assessment/Plan: no active bleeding at this time, possible black stool secondary to iron Code(s): K92.2 - GASTROINTESTINAL HEMORRHAGE, UNSPECIFIED Qualifiers: GI bleed type/associated pathology: unspecified gastrointestinal hemorrhage type Qualified Code(s): K92.2 - Gastrointestinal hemorrhage, unspecified (2) Alcoholic cirrhosis of liver Assessment/Plan: R> abdominal ultrasound every 6 mos AFP levle every 6 months patient still actively drinking Code(s): K70.30 - ALCOHOLIC CIRRHOSIS OF LIVER WITHOUT ASCITES (3) Anemia Assessment/Plan: possibly secondary to BM suppression from alcohol R> will need EGD and colonoscopy even as outpatient Code(s): D64.9 - ANEMIA, UNSPECIFIED Qualifiers: Anemia type: unspecified type Qualified Code(s): D64.9 - Anemia, unspecified
[2019-11-26] MEDS: INSULIN SLIDING SCALE (NOVOLOG) 1 VIAL SQ SCH ×3 (13:48→21:55)
[2019-11-26 18:51] LABS: BASO % 0.6 % (0-2.0); EOS % 0.9 % (0-4.5); HEMATOCRIT 23.9 % (35.4-49); LYMPH % 23.6 % (8-40); MCH 31.2 pg (25.7-33.7); MCHC 33.5 g/dl (32.0-35.9); MEAN CELL VOLUME 93.2 fl (80-96); MEAN PLT VOLUME 11.7 fl (7.5-11.1); NEUT % 62.9 % (42.8-82.8); RBC 2.56 M/mm3 (4.00-5.60); RDW 17.6 % (11.9-15.9); WHITE BLOOD COUNT 7.2 K/mm3 (4.0-10.0)
[2019-11-26 18:55] LABS: PLATELET COUNT 36 K/MM3 (134-434)
--- NOTE | 2019-11-26 21:22 | HP ---
Admitting History and Physical - Admission History of Present Illness: Pt is a 49 y/o M PMH significant for DM, ETOH liver disease / cirrhosis with prior tap for ascites, s/p gastric sleeve, ROSALINDA x3 with ?spontaneous GIB from SBO, migraines, HTN and HLD presenting with abdominal pain for 1 day. Patient endorses waking up with abdominal pain, constant, progressive, non-radiating, located in epigastrium / periumbilical, sharp in quality, without identified exacerbating / relieving properties. Associated with 2 episodes of emesis in the morning with a dark red color (no recent red foods), also with 2 episodes of lo ose stool with dark color (no iron / bismuths). Feels as though his abdomen is distended "a little" more than usual. States this sensation feels similar to prior SBOs. Also endorses being told that he had a spontaneous lower GI bleed from adhesions in the past. - Past Medical History Cardiovascular: Yes: HTN Pulmonary: Yes: Asthma Gastrointestinal: Yes: Other (SBO Cirrhosis) Hepatobiliary: Yes: Cirrhosis Heme/Onc: Yes: Anemia Psych: Yes: Addictions (ETOH abuse) Endocrine: Yes: Diabetes Mellitus (States diet controlled: off insulin and oral therapy x 1 year per patient) - Past Surgical History Past Surgical History: Yes: Bariatric Surgery (gastric sleeve (2007 or 2008)) - Smoking History Smoking history: Never smoked Have you smoked in the past 12 months: Yes Aproximately how many cigarettes per day: 10 - Alcohol/Substance Use Hx Alcohol Use: No History of Substance Use: reports: None - Social History ADL: Independent Occupation: Unemployed History of Recent Travel: No Home Medications - Allergies Allergies/Adverse Reactions: Allergies Allergy/AdvReac Type Severity Reaction Status Date / Time Penicillins Allergy Severe Hives Verified 11/25/19 19:26 - Home Medications Home Medications: Ambulatory Orders Enalapril Maleate [Vasotec] 40 mg PO DAILY 03/16/18 Biotin 10,000 mcg PO BID 03/18/18 Cyclobenzaprine HCl [Flexeril 10 mg] 10 mg PO DAILY 03/18/18 Ferrous Sulfate 325 mg PO BID 03/18/18 Folic Acid - 1 mg PO DAILY #30 tablet 03/20/18 Furosemide [Lasix] 40 mg PO DAILY #30 tablet 03/20/18 Thiamine HCl [Vitamin B1 -] 100 mg PO DAILY #30 tablet 03/20/18 Metformin HCl [Glucophage] 500 mg PO BID 11/25/19 Family Medical History Family History: Unremarkable Review of Systems - Review of Systems Constitutional: reports: No Symptoms Eyes: reports: No Symptoms HENT: reports: No Symptoms Neck: reports: No Symptoms Cardiovascular: reports: No Symptoms Respiratory: reports: No Symptoms Gastrointestinal: reports: Abdominal Pain, Vomiting Genitourinary: reports: No Symptoms Physical Examination Vital Signs: Vital Signs Temperature 99.1 F 11/26/19 20:37 Pulse Rate 78 11/26/19 20:37 Respiratory Rate 20 11/26/19 20:37 Blood Pressure 139/77 11/26/19 20:37 O2 Sat by Pulse Oximetry (%) 100 11/26/19 20:37 Constitutional: Yes: Well Nourished Eyes: Yes: WNL HENT: Yes: WNL Neck: Yes: WNL, Supple Cardiovascular: Yes: WNL, Regular Rate and Rhythm Respiratory: Yes: WNL, Regular, CTA Bilaterally Gastrointestinal: Yes: WNL, Normal Bowel Sounds, Soft, Abdomen, Obese Extremities: Yes: WNL Edema: No Neurological: Yes: WNL, Alert, Oriented ...Motor Strength: WNL Labs: CBC, BMP 11/26/19 17:40 11/25/19 20:20 Problem List - Problems (1) Gastrointestinal bleed Assessment/Plan: Due to cirrhosis/thrombocytopenia Cont protonix Transfuse PRBC's Monitor H/H GI consult Code(s): K92.2 - GASTROINTESTINAL HEMORRHAGE, UNSPECIFIED Qualifiers: GI bleed type/associated pathology: unspecified gastrointestinal hemorrhage type Qualified Code(s): K92.2 - Gastrointestinal hemorrhage, unspecified (2) Anemia Assessment/Plan: Due to liver dz Code(s): D64.9 - ANEMIA, UNSPECIFIED Qualifiers: Anemia type: unspecified type Qualified Code(s): D64.9 - Anemia, unspecified (3) Cirrhosis Code(s): K74.60 - UNSPECIFIED CIRRHOSIS OF LIVER Qualifiers: Hepatic cirrhosis type: alcoholic cirrhosis Ascites presence: with ascites Qualified Code(s): K70.31 - Alcoholic cirrhosis of liver with ascites (4) Diabetes Assessment/Plan: Cont sliding scale w/ coverage Code(s): E11.9 - TYPE 2 DIABETES MELLITUS WITHOUT COMPLICATIONS (5) HTN (hypertension) Assessment/Plan: Antihypertensive meds on hold due to GI bleed Monitor BP Code(s): I10 - ESSENTIAL (PRIMARY) HYPERTENSION (6) Hyperlipidemia Code(s): E78.5 - HYPERLIPIDEMIA, UNSPECIFIED (7) Morbid obesity Code(s): E66.01 - MORBID (SEVERE) OBESITY DUE TO EXCESS CALORIES (8) Thrombocytopenia Code(s): D69.6 - THROMBOCYTOPENIA, UNSPECIFIED
--- NOTE | 2019-11-26 22:30 | CON.HO ---
Consult - text type - Consultation Consultation Note: PAtient seen and examined 49 y/o patient with h/o alcohol absuse, obesuty, fatty liver, comes in with abdominalpain, bleeding per rectum, MICHELLE LAst episode of bleeding at 6pm. Some abdominal pain Last Vital Signs Temp Pulse Resp BP Pulse Ox 99.1 F 78 20 139/77 100 11/26/19 20:37 11/26/19 20:37 11/26/19 20:37 11/26/19 20:37 11/26/19 20:37 Obese Cor: RSR, No murmurs, No gallops Lungs: Clear to P&A Abd: Soft, Normal bowel sounds, No organomegaly. Laparotomy scar Ext:No significant edema Skin: No rashes, Integument intact Abnormal Lab Results 11/25/19 11/25/19 11/25/19 20:20 21:10 22:22 RBC 2.84 L Hgb 8.8 L Hct 26.2 L D RDW 17.7 H Plt Count 38 L D MPV Lymphocytes % 7.9 L D Monocytes % Urine Ketones Trace H Urine Nitrite Positive H Urine Bilirubin 3+ H Crossmatch See Detail 11/26/19 11/26/19 03:50 17:40 RBC 2.48 L 2.56 L Hgb 7.7 L 8.0 L Hct 22.9 L 23.9 L RDW 17.7 H 17.6 H Plt Count 37 L 36 L* MPV 11.7 H Lymphocytes % Monocytes % 12.0 H Urine Ketones Urine Nitrite Urine Bilirubin Crossmatch Active Medications Acetaminophen (Tylenol Suppository -) 650 mg RC Q6H PRN PRN Reason: FEVER Dextrose/Sodium Chloride (D5-1/2ns -) 1,000 mls @ 75 mls/hr IV ASDIR [facility] Last Admin: 11/26/19 10:14 Dose: 75 mls/hr Documented by: Insulin Aspart (Novolog Vial Sliding Scale -) 1 vial SQ ACHS [facility]; Protocol Last Admin: 11/26/19 21:55 Dose: Not Given Documented by: Pantoprazole Sodium (Protonix Iv) 40 mg IVPUSH DAILY [facility] Last Admin: 11/26/19 10:14 Dose: 40 mg Documented by: A/P 49 y/o patient with alcoholic liver disease presenting with abdominal pain., rectal bleeding. No fever/chills/cough/SOB. Bleedinfg per rectum. No h/o hemorrhoids. + mild abdominalpain. No hematemeis/vomiting also alcoholic milagro On protonix CT a/p --hepatospleomegaly with fatty liver INR--`1.59 Platelets --38,0000 Keep platelets > 50,000 transfuse 1 unit monodonor patelets vit.k may need ffp gi follow up tbili 10 supportive care
[2019-11-26] MEDS ORDERED: ACETAMINOPHEN 325 MG TABLET (FP) PO PRN (23:53)
[2019-11-27] MEDS: INSULIN SLIDING SCALE (NOVOLOG) 1 VIAL SQ SCH ×4 (06:25→21:03)
[2019-11-27 07:32] LABS: BASO % 0.8 % (0-2.0); EOS % 1.6 % (0-4.5); HEMATOCRIT 23.2 % (35.4-49); HEMOGLOBIN 7.8 GM/dL (11.7-16.9); MCHC 33.6 g/dl (32.0-35.9); MEAN CELL VOLUME 92.3 fl (80-96); MEAN PLT VOLUME 10.2 fl (7.5-11.1); MONO % 11.1 % (3.8-10.2); NEUT % 61.5 % (42.8-82.8); PLATELET COUNT 47 K/MM3 (134-434); RBC 2.51 M/mm3 (4.00-5.60); RDW 17.8 % (11.9-15.9); WHITE BLOOD COUNT 7.5 K/mm3 (4.0-10.0)
[2019-11-27 07:34] LABS: INR 1.53 (0.83-1.09); PROTHROMBIN TIME (PATIENT) 18.1 SEC (9.7-13.0)
[2019-11-27 07:36] LABS: ACTIVATED PTT 28.5 SECONDS (25.2-36.5)
[2019-11-27 08:01] LABS: ALBUMIN 2.2 g/dl (3.4-5.0); BLOOD UREA NITROGEN 19.5 mg/dL (7-18); CALCIUM 7.8 mg/dL (8.5-10.1); CREATININE 1.3 mg/dL (0.55-1.3); POTASSIUM 3.9 mmol/L (3.5-5.1); TOT PROT 5.9 g/dl (6.4-8.2)
[2019-11-27] MEDS: DEXTROSE 5%-0.45% SALINE 1,000 ML IV SCH (08:07)
[2019-11-27 08:08] LABS: BILIRUBIN,TOTAL 8.9 mg/dL (0.2-1)
[2019-11-27] MEDS: PANTOPRAZOLE SODIUM 40 MG VIAL IVPUSH SCH (09:18)
[2019-11-27] MEDS ORDERED: INSULIN (NOVOLOG) ASPART 100 UNITS/ML 10ML VIAL ONE ×2 (11:28→12:18)
[2019-11-27] MEDS: PHYTONADIONE 10 MG/1 ML AMP SQ SCH (12:25)
--- NOTE | 2019-11-27 12:27 | PN ---
Progress Note, Physician History of Present Illness: stable no new issues - Current Medication List Current Medications: Active Medications Acetaminophen (Tylenol -) 650 mg PO Q6H PRN PRN Reason: FEVER Last Admin: 11/27/19 00:01 Dose: 650 mg Documented by: Dextrose/Sodium Chloride (D5-1/2ns -) 1,000 mls @ 75 mls/hr IV [facility]IR [facility] Last Admin: 11/27/19 08:07 Dose: 75 mls/hr Documented by: Insulin Aspart (Novolog Vial Sliding Scale -) 1 vial SQ ACHS [facility]; Protocol Last Admin: 11/27/19 11:31 Dose: 4 units Documented by: Pantoprazole Sodium (Protonix Iv) 40 mg IVPUSH DAILY [facility] Last Admin: 11/27/19 09:18 Dose: 40 mg Documented by: Phytonadione (Aqua Mephyton Injection -) 5 mg SQ DAILY [facility] Stop: 11/29/19 10:01 - Objective Vital Signs: Vital Signs Temperature 98.6 F 11/27/19 09:10 Pulse Rate 77 11/27/19 09:10 Respiratory Rate 11/27/19 09:10 Blood Pressure 122/71 11/27/19 09:10 O2 Sat by Pulse Oximetry (%) 99 11/27/19 09:10 Constitutional: Yes: No Distress, Calm Cardiovascular: Yes: S1, S2 Respiratory: Yes: Regular, CTA Bilaterally Gastrointestinal: Yes: Normal Bowel Sounds, Soft, Ascites Musculoskeletal: Yes: WNL Extremities: Yes: WNL Neurological: Yes: Alert, Oriented Psychiatric: Yes: Alert, Oriented Labs: CBC, BMP 11/27/19 06:30 11/27/19 06:30 INR, PTT INR 1.53 (0.83-1.09) H 11/27/19 06:30 Fibrinogen 141.0 mg/dL (238-498) L 11/27/19 06:30 Assessment/Plan Problem List - Problems (1) Gastrointestinal bleed Code(s): K92.2 - GASTROINTESTINAL HEMORRHAGE, UNSPECIFIED Qualifiers: GI bleed type/associated pathology: unspecified gastrointestinal hemorrhage type Qualified Code(s): K92.2 - Gastrointestinal hemorrhage, unspecified (2) Anemia Code(s): D64.9 - ANEMIA, UNSPECIFIED Qualifiers: Anemia type: unspecified type Qualified Code(s): D64.9 - Anemia, unspecified (3) Cirrhosis Code(s): K74.60 - UNSPECIFIED CIRRHOSIS OF LIVER Qualifiers: Hepatic cirrhosis type: alcoholic cirrhosis Ascites presence: with ascites Qualified Code(s): K70.31 - Alcoholic cirrhosis of liver with ascites (4) Diabetes Assessment/Plan: Cont sliding scale w/ coverage Code(s): E11.9 - TYPE 2 DIABETES MELLITUS WITHOUT COMPLICATIONS (5) HTN (hypertension) Assessment/Plan: Antihypertensive meds on hold due to GI bleed Monitor BP Code(s): I10 - ESSENTIAL (PRIMARY) HYPERTENSION (6) Hyperlipidemia Code(s): E78.5 - HYPERLIPIDEMIA, UNSPECIFIED (7) Morbid obesity Code(s): E66.01 - MORBID (SEVERE) OBESITY DUE TO EXCESS CALORIES (8) Thrombocytopenia Code(s): D69.6 - THROMBOCYTOPENIA, UNSPECIFIED plan continue current mgmt close watch rest as per the team
--- NOTE | 2019-11-27 17:12 | PN ---
Progress Note, Physician History of Present Illness: feeling good - Current Medication List Current Medications: Active Medications Acetaminophen (Tylenol -) 650 mg PO Q6H PRN PRN Reason: FEVER Last Admin: 11/27/19 00:01 Dose: 650 mg Documented by: Dextrose/Sodium Chloride (D5-1/2ns -) 1,000 mls @ 75 mls/hr IV ASDIR [facility] Last Admin: 11/27/19 08:07 Dose: 75 mls/hr Documented by: Insulin Aspart (Novolog Vial Sliding Scale -) 1 vial SQ ACHS [facility]; Protocol Last Admin: 11/27/19 11:31 Dose: 4 units Documented by: Pantoprazole Sodium (Protonix Iv) 40 mg IVPUSH DAILY [facility] Last Admin: 11/27/19 09:18 Dose: 40 mg Documented by: Phytonadione (Aqua Mephyton Injection -) 5 mg SQ DAILY [facility] Stop: 11/29/19 10:01 Last Admin: 11/27/19 12:25 Dose: 5 mg Documented by: - Objective Vital Signs: Vital Signs Temperature 98.3 F 11/27/19 15:53 Pulse Rate 75 11/27/19 15:53 Respiratory Rate 20 11/27/19 15:53 Blood Pressure 144/77 11/27/19 15:53 O2 Sat by Pulse Oximetry (%) 100 11/27/19 15:53 Constitutional: Yes: No Distress HENT: Yes: Atraumatic Neck: Yes: Supple Cardiovascular: Yes: Regular Rate and Rhythm Respiratory: Yes: CTA Bilaterally Gastrointestinal: Yes: Normal Bowel Sounds Extremities: Yes: WNL Edema: No Neurological: Yes: Alert, Oriented Labs: CBC, BMP 11/27/19 06:30 11/27/19 06:30 INR, PTT INR 1.53 (0.83-1.09) H 11/27/19 06:30 Fibrinogen 141.0 mg/dL (238-498) L 11/27/19 06:30 Problem List - Problems (1) Anemia Assessment/Plan: getting prbc fu labs heme on board Code(s): D64.9 - ANEMIA, UNSPECIFIED Qualifiers: Anemia type: unspecified type Qualified Code(s): D64.9 - Anemia, unspeci fied (2) Gastrointestinal bleed Assessment/Plan: stable now had a bm said it was normal Code(s): K92.2 - GASTROINTESTINAL HEMORRHAGE, UNSPECIFIED Qualifiers: GI bleed type/associated pathology: unspecified gastrointestinal hemorrhage type Qualified Code(s): K92.2 - Gastrointestinal hemorrhage, unspecified (3) Renal insufficiency Code(s): N28.9 - DISORDER OF KIDNEY AND URETER, UNSPECIFIED (4) Abdominal pain Code(s): R10.9 - UNSPECIFIED ABDOMINAL PAIN (5) Alcoholic cirrhosis of liver Code(s): K70.30 - ALCOHOLIC CIRRHOSIS OF LIVER WITHOUT ASCITES (6) Diabetes Code(s): E11.9 - TYPE 2 DIABETES MELLITUS WITHOUT COMPLICATIONS (7) HTN (hypertension) Code(s): I10 - ESSENTIAL (PRIMARY) HYPERTENSION (8) Hyperlipidemia Code(s): E78.5 - HYPERLIPIDEMIA, UNSPECIFIED (9) Thrombocytopenia Assessment/Plan: monitor will get platelets Code(s): D69.6 - THROMBOCYTOPENIA, UNSPECIFIED Assessment/Plan COVERIING FOR DR REBECCA DALE
--- NOTE | 2019-11-27 18:58 | PN.HO ---
Progress Note (short form) - Note Progress Note: PAtient seen and examined Reports feeling better AFVSS Cor: RSR, No murmurs, No gallops Lungs: Clear to P&A Abd: Soft, Normal bowel sounds, No organomegaly Ext:No significant edema LAbs/MEds reviewed A/P [id number] y/o patient with alcoholic liver disease presenting with abdominal pain., rectal bleeding. No fever/chills/cough/SOB. Bleedinfg per rectum. No h/o hemorrhoids. + mild abdominalpain. No hematemeis/vomiting also alcoholic hepatitis On protonix CT a/p --hepatospleomegaly with fatty liver INR--`1.59 Platelets --47,0000 after 1 unit MDPs Keep platelets > 50,000 transfuse 1 more unit monodonor patelets vit.k may need ffp gi follow up tbili 8.9 iron studies s/o anemia of chronic disease monitor clinical course
[2019-11-28] MEDS: INSULIN SLIDING SCALE (NOVOLOG) 1 VIAL SQ SCH ×4 (06:39→21:34)
[2019-11-28 07:42] LABS: BASO % 0.9 % (0-2.0); EOS % 1.8 % (0-4.5); HEMATOCRIT 24.7 % (35.4-49); HEMOGLOBIN 8.4 GM/dL (11.7-16.9); LYMPH % 24.3 % (8-40); MCH 31.3 pg (25.7-33.7); MEAN CELL VOLUME 92.1 fl (80-96); MEAN PLT VOLUME 9.9 fl (7.5-11.1); MONO % 9.5 % (3.8-10.2); NEUT % 63.5 % (42.8-82.8); PLATELET COUNT 59 K/MM3 (134-434); RBC 2.68 M/mm3 (4.00-5.60); RDW 19.4 % (11.9-15.9); WHITE BLOOD COUNT 6.7 K/mm3 (4.0-10.0)
[2019-11-28 08:01] LABS: ALBUMIN 2.1 g/dl (3.4-5.0); BILIRUBIN,TOTAL 8.6 mg/dL (0.2-1); BLOOD UREA NITROGEN 12.5 mg/dL (7-18); CALCIUM 7.6 mg/dL (8.5-10.1); CREATININE 1.2 mg/dL (0.55-1.3); POTASSIUM 3.7 mmol/L (3.5-5.1)
--- NOTE | 2019-11-28 09:26 | PN ---
Progress Note, Physician History of Present Illness: stable no new issues - Current Medication List Current Medications: Active Medications Acetaminophen (Tylenol -) 650 mg PO Q6H PRN PRN Reason: FEVER Last Admin: 11/27/19 00:01 Dose: 650 mg Documented by: Dextrose/Sodium Chloride (D5-1/2ns -) 1,000 mls @ 75 mls/hr IV ASDIR [facility] Last Admin: 11/27/19 08:07 Dose: 75 mls/hr Documented by: Insulin Aspart (Novolog Vial Sliding Scale -) 1 vial SQ ACHS [facility]; Protocol Last Admin: 11/28/19 06:39 Dose: 2 units Documented by: Pantoprazole Sodium (Protonix Iv) 40 mg IVPUSH DAILY [facility] Last Admin: 11/27/19 09:18 Dose: 40 mg Documented by: Phytonadione (Aqua Mephyton Injection -) 5 mg SQ DAILY [facility] Stop: 11/29/19 10:01 Last Admin: 11/27/19 12:25 Dose: 5 mg Documented by: - Objective Vital Signs: Vital Signs Temperature 99 F 11/28/19 06:00 Pulse Rate 72 11/28/19 06:00 Respiratory Rate 20 11/28/19 06:00 Blood Pressure 130/77 11/28/19 06:00 O2 Sat by Pulse Oximetry (%) 99 11/28/19 06:00 Constitutional: Yes: No Distress, Calm, Obese Cardiovascular: Yes: S1, S2 Respiratory: Yes: Regular, CTA Bilaterally Gastrointestinal: Yes: Normal Bowel Sounds, Soft Musculoskeletal: Yes: WNL Extremities: Yes: WNL Neurological: Yes: Alert, Oriented Psychiatric: Yes: Alert, Oriented Labs: CBC, BMP 11/28/19 07:05 11/28/19 07:05 INR, PTT INR 1.53 (0.83-1.09) H 11/27/19 06:30 Fibrinogen 141.0 mg/dL (238-498) L 11/27/19 06:30 Assessment/Plan Problem List - Problems (1) Gastrointestinal bleed Code(s): K92.2 - GASTROINTESTINAL HEMORRHAGE, UNSPECIFIED Qualifiers: GI bleed type/associated pathology: unspecified gastrointestinal hemorrhage type Qualified Code(s): K92.2 - Gastrointestinal hemorrhage, unspecified (2) Anemia Code(s): D64.9 - ANEMIA, UNSPECIFIED Qualifiers: Anemia type: unspecified type Qualified Code(s): D64.9 - Anemia, unspecified (3) Cirrhosis Code(s): K74.60 - UNSPECIFIED CIRRHOSIS OF LIVER Qualifiers: Hepatic cirrhosis type: alcoholic cirrhosis Ascites presence: with ascites Qualified Code(s): K70.31 - Alcoholic cirrhosis of liver with ascites (4) Diabetes Assessment/Plan: Cont sliding scale w/ coverage Code(s): E11.9 - TYPE 2 DIABETES MELLITUS WITHOUT COMPLICATIONS (5) HTN (hypertension) Assessment/Plan: Antihypertensive meds on hold due to GI bleed Monitor BP Code(s): I10 - ESSENTIAL (PRIMARY) HYPERTENSION (6) Hyperlipidemia Code(s): E78.5 - HYPERLIPIDEMIA, UNSPECIFIED (7) Morbid obesity Code(s): E66.01 - MORBID (SEVERE) OBESITY DUE TO EXCESS CALORIES (8) Thrombocytopenia Code(s): D69.6 - THROMBOCYTOPENIA, UNSPECIFIED plan continue current mgmt close watch rest as per the team
--- NOTE | 2019-11-28 10:21 | PN ---
Physical Exam: SUBJECTIVE: Patient seen and examined. Pt. endorses drinking 1/4 of a L of alcohol with friends around 1 week ago. Pt. states he follows with Dr. Lancaster([employer]) at [facility]. Pt. endorses that his platelets have never been this low. Pt. states his eyes have been yellow for years now. Pt. denies any acute events over night. OBJECTIVE: Vital Signs Period Temp Pulse Resp BP Sys/[place]illingham Pulse Ox Last 24 Hr 98 F-99.3 F 72-88 18-20 114-144/70-84 99-100 GENERAL: The patient is awake, alert, and fully oriented, in no acute distress. HEAD: Normal with no signs of trauma. EYES: Scleral icterus ENT: Moist mucous membranes. LUNGS: Breath sounds equal, clear to auscultation bilaterally, no wheezes, no cr ackles, no accessory muscle use. HEART: Regular rate and rhythm, S1, S2 without murmur, rub or gallop. ABDOMEN: Soft, nontender, nondistended but protuberant, normoactive bowel sounds, no guarding, no rebound EXTREMITIES: 2+ dorsal pedal pulses, warm, no calf tenderness, well-perfused, no edema. NEUROLOGICAL: No focal deficits Normal speech, gait not observed. PSYCH: Normal mood, normal affect. SKIN: Warm, dry, normal turgor Laboratory Results - last 24 hr 11/25/19 11/27/19 11/27/19 20:20 11:24 17:10 WBC RBC Hgb Hct MCV MCH MCHC RDW Plt Count MPV Absolute Neuts (auto) Neutrophils % Lymphocytes % Monocytes % Eosinophils % Basophils % Nucleated RBC % Sodium Potassium Chloride Carbon Dioxide Anion Gap BUN Creatinine Est GFR (CKD-EPI)AfAm Est GFR (CKD-EPI)NonAf POC Glucometer 250 136 Random Glucose Calcium Total Bilirubin AST ALT Alkaline Phosphatase Total Protein Albumin Blood Type A POSITIVE Antibody Screen Negative Crossmatch See Detail 11/27/19 11/28/19 11/28/19 21:01 06:31 07:05 WBC 6.7 RBC 2.68 L Hgb 8.4 L Hct 24.7 L MCV 92.1 MCH 31.3 MCHC 34.0 RDW 19.4 H Plt Count 59 L D MPV 9.9 Absolute Neuts (auto) 4.2 Neutrophils % 63.5 Lymphocytes % 24.3 Monocytes % 9.5 Eosinophils % 1.8 Basophils % 0.9 Nucleated RBC % 0 Sodium Potassium Chloride Carbon Dioxide Anion Gap BUN Creatinine Est GFR (CKD-EPI)AfAm Est GFR (CKD-EPI)NonAf POC Glucometer 120 151 Random Glucose Calcium Total Bilirubin AST ALT Alkaline Phosphatase Total Protein Albumin Blood Type Antibody Screen Crossmatch 11/28/19 07:05 WBC RBC Hgb Hct MCV MCH MCHC RDW Plt Count MPV Absolute Neuts (auto) Neutrophils % Lymphocytes % Monocytes % Eosinophils % Basophils % Nucleated RBC % Sodium 139 Potassium 3.7 Chloride 110 H Carbon Dioxide 22 Anion Gap 8 BUN 12.5 Creatinine 1.2 Est GFR (CKD-EPI)AfAm 82.38 Est GFR (CKD-EPI)NonAf 71.08 POC Glucometer Random Glucose 154 H Calcium 7.6 L Total Bilirubin 8.6 H AST 100 H ALT 35 Alkaline Phosphatase 114 Total Protein 6.0 L Albumin 2.1 L Blood Type Antibody Screen Crossmatch Active Medications Generic Name Dose Route Start Last Admin Trade Name Freq PRN Reason Stop Dose Admin Acetaminophen 650 mg 11/26/19 23:53 11/27/19 00:01 Tylenol - PO 650 mg Q6H PRN Administration FEVER Dextrose/Sodium Chloride 1,000 mls @ 75 mls/hr 11/26/19 08:15 11/27/19 08:07 D5-1/2ns - IV 75 mls/hr [facility] Administration Insulin Aspart 1 vial 11/26/19 11:00 11/28/19 06:39 Novolog Vial Sliding Scale - SQ 2 units ACHS [facility] Administration Protocol Pantoprazole Sodium 40 mg 11/26/19 10:00 11/27/19 09:18 Protonix Iv IVPUSH 40 mg DAILY [facility] Administration Phytonadione 5 mg 11/27/19 11:30 11/27/19 12:25 Aqua Mephyton Injection - SQ 11/29/19 10:01 5 mg DAILY [facility] Administration ASSESSMENT/PLAN: Pt. is a 49 y.o. M w/ PMHx. of DM, ETOH liver disease / cirrhosis with prior tap for ascites, s/p gastric sleeve, ROSALINDA x3 with ?spontaneous GIB from SBO, migraines, HTN and HLD presenting with abdominal pain. We are called to assess for cytopenia. #Cytopenia Anemia likely 2/2 bone marrow suppression from EtOH abuse and from acute blood loss. HgB currently stable in the hospital Thrombocytopenia likely 2/2 cirrhosis. Pt. had Fibrosure scan significant for F2 fibrosis. Platelets 51k, will transfuse to keep platelets above 50k as Pt. presented with GIB. F/u GI consult, last EGD in 2018 showed grade 2 varices. c/w protonix c/w Vitamin K x 5 days as Pt. has slightly elevated INR. Liver produces factor V and we believes that this clotting factor will be decreased and therefore has a compounding effect on bleeding. We aim to increase Vitamin K levels to promote clot formation with factors II, VII, IX, and X. Visit type - Emergency Visit Emergency Visit: Yes ED Registration Date: 11/26/19 Care time: The patient presented to the Emergency Department on the above date and was hospitalized for further evaluation of their emergent condition. - New Patient This patient is new to me today: Yes Date on this admission: 11/28/19 - Critical Care Critical Care patient: No - Discharge Referral Referred to [facility] Med P.C.: No ATTENDING PHYSICIAN STATEMENT I saw and evaluated the patient. I reviewed the resident's note and discussed the case with the resident. I agree with the resident's findings and plan as documented. SUBJECTIVE: OBJECTIVE: ASSESSMENT AND PLAN:
[2019-11-28] MEDS: PANTOPRAZOLE SODIUM 40 MG VIAL IVPUSH SCH (10:45)
[2019-11-28] MEDS: DEXTROSE 5%-0.45% SALINE 1,000 ML IV SCH (10:45)
[2019-11-28] MEDS: PHYTONADIONE 10 MG/1 ML AMP SQ SCH (10:47)
--- NOTE | 2019-11-28 21:52 | PN ---
Progress Note, Physician - Current Medication List Current Medications: Active Medications Acetaminophen (Tylenol -) 650 mg PO Q6H PRN PRN Reason: FEVER Last Admin: 11/27/19 00:01 Dose: 650 mg Documented by: Insulin Aspart (Novolog Vial Sliding Scale -) 1 vial SQ ACHS [facility]; Protocol Last Admin: 11/28/19 21:34 Dose: 4 units Documented by: Pantoprazole Sodium (Protonix Iv) 40 mg IVPUSH DAILY [facility] Last Admin: 11/28/19 10:45 Dose: 40 mg Documented by: Phytonadione (Aqua Mephyton Injection -) 5 mg SQ DAILY [facility] Stop: 11/29/19 10:01 Last Admin: 11/28/19 10:47 Dose: 5 mg Documented by: - Objective Vital Signs: Vital Signs Temperature 98.7 F 11/28/19 16:20 Pulse Rate 74 11/28/19 16:20 Respiratory Rate 20 11/28/19 16:20 Blood Pressure 142/73 11/28/19 16:20 O2 Sat by Pulse Oximetry (%) 98 11/28/19 16:20 Labs: CBC, BMP 11/28/19 07:05 11/28/19 07:05 INR, PTT INR 1.53 (0.83-1.09) H 11/27/19 06:30 Fibrinogen 141.0 mg/dL (238-498) L 11/27/19 06:30 Problem List - Problems (1) Gastrointestinal bleed Code(s): K92.2 - GASTROINTESTINAL HEMORRHAGE, UNSPECIFIED Qualifiers: GI bleed type/associated pathology: unspecified gastrointestinal hemorrhage type Qualified Code(s): K92.2 - Gastrointestinal hemorrhage, unspecified (2) Anemia Code(s): D64.9 - ANEMIA, UNSPECIFIED Qualifiers: Anemia type: unspecified type Qualified Code(s): D64.9 - Anemia, unspecified (3) Cirrhosis Code(s): K74.60 - UNSPECIFIED CIRRHOSIS OF LIVER Qualifiers: Hepatic cirrhosis type: alcoholic cirrhosis Ascites presence: with ascites Qualified Code(s): K70.31 - Alcoholic cirrhosis of liver with ascites (4) Diabetes Code(s): E11.9 - TYPE 2 DIABETES MELLITUS WITHOUT COMPLICATIONS (5) HTN (hypertension) Code(s): I10 - ESSENTIAL (PRIMARY) HYPERTENSION (6) Hyperlipidemia Code(s): E78.5 - HYPERLIPIDEMIA, UNSPECIFIED (7) Morbid obesity Code(s): E66.01 - MORBID (SEVERE) OBESITY DUE TO EXCESS CALORIES (8) Thrombocytopenia Code(s): D69.6 - THROMBOCYTOPENIA, UNSPECIFIED
[2019-11-29] MEDS: INSULIN SLIDING SCALE (NOVOLOG) 1 VIAL SQ SCH ×2 (06:16→12:16)
--- NOTE | 2019-11-29 10:27 | PN ---
Progress Note, Physician History of Present Illness: stable no new issues - Current Medication List Current Medications: Active Medications Acetaminophen (Tylenol -) 650 mg PO Q6H PRN PRN Reason: FEVER Last Admin: 11/27/19 00:01 Dose: 650 mg Documented by: Insulin Aspart (Novolog Vial Sliding Scale -) 1 vial SQ [facility]; Protocol Last Admin: 11/29/19 06:16 Dose: Not Given Documented by: Pantoprazole Sodium (Protonix Iv) 40 mg IVPUSH DAILY [facility] Last Admin: 11/28/19 10:45 Dose: 40 mg Documented by: - Objective Vital Signs: Vital Signs Temperature 98.9 F 11/29/19 05:48 Pulse Rate 72 11/29/19 05:48 Respiratory Rate 20 11/29/19 05:48 Blood Pressure 144/76 11/29/19 05:48 O2 Sat by Pulse Oximetry (%) 100 11/29/19 05:48 Constitutional: Yes: No Distress, Calm Cardiovascular: Yes: S1, S2 Gastrointestinal: Yes: Normal Bowel Sounds, Soft Musculoskeletal: Yes: WNL Extremities: Yes: WNL Neurological: Yes: Alert, Oriented Psychiatric: Yes: Alert, Oriented Labs: CBC, BMP 11/28/19 07:05 11/28/19 07:05 INR, PTT INR 1.53 (0.83-1.09) H 11/27/19 06:30 Fibrinogen 141.0 mg/dL (238-498) L 11/27/19 06:30 Assessment/Plan Problem List - Problems (1) Gastrointestinal bleed Code(s): K92.2 - GASTROINTESTINAL HEMORRHAGE, UNSPECIFIED Qualifiers: GI bleed type/associated pathology: unspecified gastrointestinal hemorrhage type Qualified Code(s): K92.2 - Gastrointestinal hemorrhage, unspecified (2) Anemia Code(s): D64.9 - ANEMIA, UNSPECIFIED Qualifiers: Anemia type: unspecified type Qualified Code(s): D64.9 - Anemia, unspecified (3) Cirrhosis Code(s): K74.60 - UNSPECIFIED CIRRHOSIS OF LIVER Qualifiers: Hepatic cirrhosis type: alcoholic cirrhosis Ascites presence: with ascites Qualified Code(s): K70.31 - Alcoholic cirrhosis of liver with ascites (4) Diabetes Assessment/Plan: Cont sliding scale w/ coverage Code(s): E11.9 - TYPE 2 DIABETES MELLITUS WITHOUT COMPLICATIONS (5) HTN (hypertension) Assessment/Plan: Antihypertensive meds on hold due to GI bleed Monitor BP Code(s): I10 - ESSENTIAL (PRIMARY) HYPERTENSION (6) Hyperlipidemia Code(s): E78.5 - HYPERLIPIDEMIA, UNSPECIFIED (7) Morbid obesity Code(s): E66.01 - MORBID (SEVERE) OBESITY DUE TO EXCESS CALORIES (8) Thrombocytopenia Code(s): D69.6 - THROMBOCYTOPENIA, UNSPECIFIED plan continue current mgmt close watch rest as per the team
[2019-11-29] MEDS: PHYTONADIONE 10 MG/1 ML AMP SQ SCH (11:01)
[2019-11-29] MEDS: PANTOPRAZOLE SODIUM 40 MG VIAL IVPUSH SCH (11:02)
[2019-11-29 11:11] VITALS: BP 130/70; PULSE 79; TEMP 98.5
[2019-11-29] MEDS ORDERED: RIFAXIMIN 550 MG TABLET (UD) PO SCH (22:00)
== END 2019-11-29 14:59 | disposition home or self-care (01) | DRG 280 ==
LOC: JER 19:10 → JERBED 11-26 01:52 → J7W 11-26 05:02 → J8W 11-27 22:49
PROVIDERS: ADMIT Internal Medicine; ATTEND Internal Medicine
PROC: 30233R1 Transfusion of Nonautologous Platelets into Peripheral Vein, Percutaneous Approach (ICD-10-PCS; principal; 2019-11-27)
PROC: 30233N1 Transfusion of Nonautologous Red Blood Cells into Peripheral Vein, Percutaneous Approach (ICD-10-PCS; 2019-11-27)
DX: K70.31 Alcoholic cirrhosis of liver with ascites (principal); K92.2 Gastrointestinal hemorrhage, unspecified; E78.5 Hyperlipidemia, unspecified; K76.0 Fatty (change of) liver, not elsewhere classified; E11.9 Type 2 diabetes mellitus without complications; I10 Essential (primary) hypertension; E66.01 Morbid (severe) obesity due to excess calories; R16.2 Hepatomegaly with splenomegaly, not elsewhere classified; D69.6 Thrombocytopenia, unspecified; D62 Acute posthemorrhagic anemia
CPT/HCPCS: 36415; 36430; 36511; 71045-TC-FY; 74176-TC; 80053; 81003; 82607; 82728; 82747; 82962; 83540; 83550; 83605; 83690; 84484; 85014; 85025; 85027; 85384; 85610; 85730; 86850; 86900; 86901; 86922; 87040; 87086; 93005; 93010; 99285-25; J0131; P9034; P9038; P9058; U0003

== ENCOUNTER 2020-04-26 09:37 | Inpatient (IN) | payer OTHER ==
[2020-04-26] MEDS ORDERED: ONDANSETRON 4 MG/2 ML VIAL IVPUSH ONE (10:14)
[2020-04-26] MEDS ORDERED: SODIUM CHLORIDE 0.9% 500 ML INFUS.BAG IV ONE (10:14)
[2020-04-26] MEDS ORDERED: PANTOPRAZOLE SODIUM 40 MG VIAL IVPUSH ONE (10:15)
[2020-04-26] MEDS ORDERED: PANTOPRAZOLE SODIUM 40 MG VIAL ONE (10:18)
[2020-04-26] MEDS ORDERED: ONDANSETRON 4 MG/2 ML VIAL ONE (10:18)
[2020-04-26 10:22] VITALS: BMI 36.2
[2020-04-26] MEDS ORDERED: OCTREOTIDE ACETATE 50 MCG/1 ML - 1 ML VIAL IVPUSH ONE (10:22)
[2020-04-26] MEDS ORDERED: METOCLOPRAMIDE HCL INJECTION 10 MG/2 ML VIAL IVPB ONE (10:40)
[2020-04-26] MEDS ORDERED: OCTREOTIDE ACETATE 100 MCG/1 ML ONE (10:43)
[2020-04-26 10:45] LABS: BASO % 0.4 % (0-2.0); EOS % 0.1 % (0-4.5); HEMOGLOBIN 8.8 GM/dL (11.7-16.9); LYMPH % 12.7 % (8-40); MCH 32.3 pg (25.7-33.7); MCHC 32.4 g/dl (32.0-35.9); MEAN CELL VOLUME 99.5 fl (80-96); MEAN PLT VOLUME 11.7 fl (7.5-11.1); MONO % 8.5 % (3.8-10.2); NEUT % 78.3 % (42.8-82.8); PLATELET COUNT 59 K/MM3 (134-434); RBC 2.72 M/mm3 (4.00-5.60); RDW 17.8 % (11.9-15.9); WHITE BLOOD COUNT 9.8 K/mm3 (4.0-10.0)
[2020-04-26] MEDS ORDERED: METOCLOPRAMIDE HCL INJECTION 10 MG/2 ML VIAL ONE ×2 (10:46→20:29)
[2020-04-26] MEDS ORDERED: CIPROFLOXACIN 400 MG/D5W 400 MG/200 ML IVPB IVPB ONE (10:51)
[2020-04-26 11:00] LABS: INR 1.69 (0.83-1.09); PROTHROMBIN TIME (PATIENT) 20.1 SEC (9.7-13.0)
[2020-04-26 11:02] LABS: ACTIVATED PTT 28.2 SECONDS (25.2-36.5)
[2020-04-26 11:13] LABS: ALBUMIN 2.5 g/dl (3.4-5.0)
[2020-04-26 11:25] LABS: BILIRUBIN,TOTAL 8.2 mg/dL (0.2-1); BLOOD UREA NITROGEN 18.7 mg/dL (7-18); CALCIUM 8.3 mg/dL (8.5-10.1); CREATININE 1.6 mg/dL (0.55-1.3); POTASSIUM 5.1 mmol/L (3.5-5.1); TOT PROT 6.9 g/dl (6.4-8.2)
[2020-04-26] MEDS ORDERED: PHYTONADIONE 10 MG/1 ML AMP IM ONE (11:32)
[2020-04-26] MEDS: OCTREOTIDE ACETATE 200 MCG, OCTREOTIDE ACETATE 1,000 MCG in DEXTROSE 5%-WATER - 496 ML IVPB SCH (11:53)
[2020-04-26] MEDS ORDERED: LACTATED RINGERS SOLUTION 1000 ML INFUS.BAG IV ONE (12:12)
[2020-04-26] MEDS ORDERED: PHYTONADIONE 10 MG/1 ML AMP ONE (12:19)
[2020-04-26] MEDS: METOCLOPRAMIDE HCL INJECTION 10 MG/2 ML VIAL IVPB SCH ×2 (12:36→21:11)
[2020-04-26] MEDS ORDERED: PT OWN MED DRAWER 7, Y5N ONE (13:23)
[2020-04-26] MEDS: SODIUM CHLORIDE 1,000 ML IV SCH (13:36)
[2020-04-26] MEDS: PANTOPRAZOLE SODIUM 80 MG in SODIUM CHLORIDE 100 ML IVPB SCH (21:11)
[2020-04-26] MEDS ORDERED: CHLORHEXIDINE GLUCONATE 4% CLEANSER FOR DECOLONIZATION TP SCH (22:00)
[2020-04-26] MEDS ORDERED: CIPROFLOXACIN 400 MG/D5W 400 MG/200 ML IVPB IVPB SCH (22:00)
[2020-04-26] MEDS: INSULIN SLIDING SCALE (NOVOLOG) 1 VIAL SQ SCH (22:09)
[2020-04-27] MEDS: MUPIROCIN 2% TOPICAL OINTMENT FOR DECOLONIZATION NS SCH ×3 (01:30→23:16)
[2020-04-27] MEDS: METOCLOPRAMIDE HCL INJECTION 10 MG/2 ML VIAL IVPB SCH ×2 (03:55→13:24)
[2020-04-27] MEDS: PANTOPRAZOLE SODIUM 80 MG in SODIUM CHLORIDE 100 ML IVPB SCH ×2 (05:48→09:30)
[2020-04-27] MEDS: INSULIN SLIDING SCALE (NOVOLOG) 1 VIAL SQ SCH ×4 (06:50→23:16)
[2020-04-27 06:55] LABS: BASO % 0.7 % (0-2.0); EOS % 1.3 % (0-4.5); HEMATOCRIT 20.4 % (35.4-49); LYMPH % 24.6 % (8-40); MCH 33.1 pg (25.7-33.7); MCHC 34.1 g/dl (32.0-35.9); MEAN CELL VOLUME 96.9 fl (80-96); MONO % 8.6 % (3.8-10.2); NEUT % 64.8 % (42.8-82.8); RBC 2.11 M/mm3 (4.00-5.60); RDW 17.1 % (11.9-15.9); WHITE BLOOD COUNT 6.4 K/mm3 (4.0-10.0)
[2020-04-27 07:06] LABS: PLATELET COUNT 36 K/MM3 (134-434); POTASSIUM 4.1 mmol/L (3.5-5.1)
[2020-04-27 07:11] LABS: ALBUMIN 2.2 g/dl (3.4-5.0); CALCIUM 7.3 mg/dL (8.5-10.1)
[2020-04-27 07:12] LABS: BLOOD UREA NITROGEN 22.4 mg/dL (7-18); MAGNESIUM 1.3 mg/dL (1.8-2.4)
[2020-04-27 07:15] LABS: CREATININE 1.3 mg/dL (0.55-1.3); PHOSPHOROUS 2.1 mg/dL (2.5-4.9); TOT PROT 5.5 g/dl (6.4-8.2)
[2020-04-27 07:25] LABS: BILIRUBIN,TOTAL 6.1 mg/dL (0.2-1)
[2020-04-27] MEDS ORDERED: PT OWN MED DRAWER 7, Y5N ONE (09:29)
[2020-04-27] MEDS ORDERED: NAPH,MB-DB/K PH,MBDB POWDER PACKET PO ONE (09:34)
[2020-04-27] MEDS ORDERED: MAGNESIUM SULF 50% (8.12 MEQ/2 ML-1 GM VIAL) IVPB ONE (10:45)
[2020-04-27] MEDS: OCTREOTIDE ACETATE 200 MCG, OCTREOTIDE ACETATE 1,000 MCG in DEXTROSE 5%-WATER - 496 ML IVPB SCH (10:59)
[2020-04-27] MEDS: SODIUM CHLORIDE 1,000 ML IV SCH (12:30)
[2020-04-27] MEDS: METOCLOPRAMIDE HCL 10 MG TABLET (FP) PO SCH (16:48)
[2020-04-27 17:56] LABS: HEMATOCRIT 21.9 % (35.4-49); HEMOGLOBIN 7.3 GM/dL (11.7-16.9); MCH 32.2 pg (25.7-33.7); MCHC 33.2 g/dl (32.0-35.9); PLATELET COUNT 60 K/MM3 (134-434); RBC 2.26 M/mm3 (4.00-5.60); RDW 17.6 % (11.9-15.9); WHITE BLOOD COUNT 5.9 K/mm3 (4.0-10.0)
[2020-04-27 18:11] LABS: INR 1.49 (0.83-1.09); PROTHROMBIN TIME (PATIENT) 18.1 SEC (9.7-13.0)
[2020-04-27 18:13] LABS: ACTIVATED PTT 28.8 SECONDS (25.2-36.5)
[2020-04-27] MEDS: CHLORHEXIDINE GLUCONATE 4% CLEANSER FOR DECOLONIZATION TP SCH (23:16)
[2020-04-28] MEDS: INSULIN SLIDING SCALE (NOVOLOG) 1 VIAL SQ SCH ×4 (06:30→22:07)
[2020-04-28 06:48] LABS: BASO % 0.6 % (0-2.0); EOS % 2.4 % (0-4.5); HEMOGLOBIN 7.8 GM/dL (11.7-16.9); LYMPH % 21.8 % (8-40); MCH 32.6 pg (25.7-33.7); MCHC 33.9 g/dl (32.0-35.9); MEAN PLT VOLUME 10.1 fl (7.5-11.1); MONO % 11.3 % (3.8-10.2); NEUT % 63.9 % (42.8-82.8); PLATELET COUNT 51 K/MM3 (134-434); RBC 2.39 M/mm3 (4.00-5.60); RDW 17.2 % (11.9-15.9); WHITE BLOOD COUNT 6.2 K/mm3 (4.0-10.0)
[2020-04-28 06:57] LABS: INR 1.51 (0.83-1.09); PROTHROMBIN TIME (PATIENT) 18.4 SEC (9.7-13.0)
[2020-04-28 06:59] LABS: ACTIVATED PTT 29.3 SECONDS (25.2-36.5)
[2020-04-28] MEDS: METOCLOPRAMIDE HCL 10 MG TABLET (FP) PO SCH (07:03)
[2020-04-28 07:09] LABS: POTASSIUM 3.7 mmol/L (3.5-5.1)
[2020-04-28 07:18] LABS: CALCIUM 7.6 mg/dL (8.5-10.1)
[2020-04-28 07:19] LABS: ALBUMIN 2.2 g/dl (3.4-5.0); BLOOD UREA NITROGEN 14.7 mg/dL (7-18); MAGNESIUM 1.8 mg/dL (1.8-2.4)
[2020-04-28 07:22] LABS: BILIRUBIN,TOTAL 6.7 mg/dL (0.2-1); CREATININE 1.1 mg/dL (0.55-1.3); PHOSPHOROUS 1.9 mg/dL (2.5-4.9)
[2020-04-28 07:23] LABS: TOT PROT 5.6 g/dl (6.4-8.2)
[2020-04-28] MEDS ORDERED: NAPH,MB-DB/K PH,MBDB POWDER PACKET PO ONE (07:42)
[2020-04-28] MEDS ORDERED: PT OWN MED DRAWER 7, Y5N ONE ×2 (09:38→10:16)
[2020-04-28] MEDS: MUPIROCIN 2% TOPICAL OINTMENT FOR DECOLONIZATION NS SCH ×2 (09:43→22:08)
[2020-04-28] MEDS ORDERED: PANTOPRAZOLE 40 MG TABLET PO SCH ×2 (10:00)
[2020-04-28] MEDS ORDERED: PHYTONADIONE 5 MG TABLET PO ONE (12:41)
[2020-04-28] MEDS ORDERED: LISINOPRIL 20 MG TABLET PO ONE (18:47)
[2020-04-28] MEDS: CHLORHEXIDINE GLUCONATE 4% CLEANSER FOR DECOLONIZATION TP SCH (22:07)
[2020-04-29] MEDS: INSULIN SLIDING SCALE (NOVOLOG) 1 VIAL SQ SCH ×4 (06:23→21:31)
[2020-04-29 08:54] LABS: HEMATOCRIT 23.7 % (35.4-49); MCH 33.3 pg (25.7-33.7); MCHC 33.9 g/dl (32.0-35.9); MEAN CELL VOLUME 98.2 fl (80-96); MEAN PLT VOLUME 11.2 fl (7.5-11.1); PLATELET COUNT 54 K/MM3 (134-434); RBC 2.41 M/mm3 (4.00-5.60); RDW 18.6 % (11.9-15.9); WHITE BLOOD COUNT 7.7 K/mm3 (4.0-10.0)
[2020-04-29 09:14] LABS: POTASSIUM 3.5 mmol/L (3.5-5.1)
[2020-04-29] MEDS ORDERED: PT OWN MED DRAWER 7, Y5N ONE (09:15)
[2020-04-29 09:18] LABS: ALBUMIN 2.2 g/dl (3.4-5.0); BLOOD UREA NITROGEN 10.5 mg/dL (7-18); CALCIUM 7.5 mg/dL (8.5-10.1)
[2020-04-29 09:20] LABS: MAGNESIUM 1.9 mg/dL (1.8-2.4)
[2020-04-29 09:21] LABS: CREATININE 1.1 mg/dL (0.55-1.3)
[2020-04-29 09:22] LABS: PHOSPHOROUS 2.4 mg/dL (2.5-4.9)
[2020-04-29 09:23] LABS: BILIRUBIN,TOTAL 7.6 mg/dL (0.2-1); TOT PROT 5.8 g/dl (6.4-8.2)
[2020-04-29] MEDS: PANTOPRAZOLE 40 MG TABLET PO SCH (09:23)
[2020-04-29] MEDS ORDERED: FLU VACCINE (FLULAVAL) PF 60 MCG/0.5 ML SYRINGE 2020-2021 IM ONE (10:00)
[2020-04-29] MEDS ORDERED: MUPIROCIN 2% TOPICAL OINTMENT FOR DECOLONIZATION NS SCH (10:00)
[2020-04-29] MEDS: MULTIVIT-MINERALS ORAL LIQUID PO SCH (10:29)
[2020-04-29] MEDS ORDERED: INSULIN (NOVOLOG) ASPART 100 UNITS/ML 10ML VIAL ONE (11:08)
[2020-04-29] MEDS: FERROUS SO4 325 MG TABLET (FP) PO SCH (17:01)
[2020-04-29] MEDS ORDERED: ACETAMINOPHEN 325 MG TABLET (FP) PO ONE (21:15)
[2020-04-30] MEDS: INSULIN SLIDING SCALE (NOVOLOG) 1 VIAL SQ SCH ×3 (06:35→16:22)
[2020-04-30] MEDS ORDERED: INSULIN (NOVOLOG) ASPART 100 UNITS/ML 10ML VIAL ONE ×2 (07:50→11:01)
[2020-04-30 07:57] LABS: BASO % 0.4 % (0-2.0); EOS % 1.7 % (0-4.5); HEMATOCRIT 24.4 % (35.4-49); HEMOGLOBIN 8.3 GM/dL (11.7-16.9); LYMPH % 18.1 % (8-40); MCH 33.3 pg (25.7-33.7); MCHC 33.9 g/dl (32.0-35.9); MEAN CELL VOLUME 98.2 fl (80-96); MEAN PLT VOLUME 10.3 fl (7.5-11.1); MONO % 10.4 % (3.8-10.2); NEUT % 69.4 % (42.8-82.8); PLATELET COUNT 48 K/MM3 (134-434); RBC 2.49 M/mm3 (4.00-5.60); RDW 18.4 % (11.9-15.9); WHITE BLOOD COUNT 7.3 K/mm3 (4.0-10.0)
[2020-04-30 08:11] LABS: POTASSIUM 3.6 mmol/L (3.5-5.1)
[2020-04-30 08:14] LABS: ALBUMIN 2.2 g/dl (3.4-5.0); CALCIUM 7.6 mg/dL (8.5-10.1)
[2020-04-30 08:15] LABS: BLOOD UREA NITROGEN 10.6 mg/dL (7-18)
[2020-04-30 08:17] LABS: CREATININE 1.1 mg/dL (0.55-1.3)
[2020-04-30 08:19] LABS: BILIRUBIN,TOTAL 9.5 mg/dL (0.2-1); TOT PROT 5.8 g/dl (6.4-8.2)
[2020-04-30] MEDS: FERROUS SO4 325 MG TABLET (FP) PO SCH ×3 (08:51→17:48)
[2020-04-30] MEDS ORDERED: PT OWN MED DRAWER 7, Y5N ONE (09:26)
[2020-04-30] MEDS: MULTIVIT-MINERALS ORAL LIQUID PO SCH (09:33)
[2020-04-30] MEDS: PANTOPRAZOLE 40 MG TABLET PO SCH (09:33)
[2020-04-30] MEDS ORDERED: ASCORBIC ACID 500 MG TABLET (FP) PO SCH (10:00)
[2020-04-30] MEDS ORDERED: FOLIC ACID 1 MG TABLET (FP) PO SCH (10:00)
[2020-04-30] MEDS ORDERED: predniSONE 20 MG TABLET (UD) PO ONE (11:18)
[2020-04-30 15:30] VITALS: BP 130/65; PULSE 80; TEMP 98.6
== END 2020-04-30 18:58 | disposition left against medical advice (07) | DRG 242 ==
LOC: JER 09:37 → JERBED 12:16 → JICU 04-27 00:27 → J8W 04-29 00:53
PROVIDERS: ADMIT Internal Medicine; ATTEND Internal Medicine
PROC: 30233K1 Transfusion of Nonautologous Frozen Plasma into Peripheral Vein, Percutaneous Approach (ICD-10-PCS; 2020-04-26)
PROC: 30233N1 Transfusion of Nonautologous Red Blood Cells into Peripheral Vein, Percutaneous Approach (ICD-10-PCS; 2020-04-27)
PROC: 30233R1 Transfusion of Nonautologous Platelets into Peripheral Vein, Percutaneous Approach (ICD-10-PCS; 2020-04-27)
PROC: 0DJ08ZZ Inspection of Upper Intestinal Tract, Via Natural or Artificial Opening Endoscopic (ICD-10-PCS; principal; 2020-04-27 13:30)
DX: I85.01 Esophageal varices with bleeding (principal); D62 Acute posthemorrhagic anemia; R94.31 Abnormal electrocardiogram [ECG] [EKG]; E11.9 Type 2 diabetes mellitus without complications; K92.0 Hematemesis; N17.9 Acute kidney failure, unspecified; K72.00 Acute and subacute hepatic failure without coma; I86.4 Gastric varices; E78.5 Hyperlipidemia, unspecified; I10 Essential (primary) hypertension; G43.909 Migraine, unspecified, not intractable, without status migrainosus; J45.909 Unspecified asthma, uncomplicated; I95.9 Hypotension, unspecified; K92.2 Gastrointestinal hemorrhage, unspecified; E86.1 Hypovolemia; D69.6 Thrombocytopenia, unspecified; K70.30 Alcoholic cirrhosis of liver without ascites; F10.10 Alcohol abuse, uncomplicated; Z98.84 Bariatric surgery status
CPT/HCPCS: 36415; 36430; 71045-TC-FY; 74177-TC; 80053; 82140; 82962; 83690; 83735; 84100; 85025; 85027; 85610; 85730; 86850; 86900; 86901; 86922; 93005; 93010; 99285-25; C9803; G0008; P9017; P9034; P9058; Q2036; Q9967; U0003

== ENCOUNTER 2020-07-28 13:33 | Inpatient (IN) | payer OTHER ==
[2020-07-28] MEDS ORDERED: OCTREOTIDE ACETATE 50 MCG/1 ML - 1 ML VIAL IVPUSH ONE (14:33)
[2020-07-28] MEDS ORDERED: PANTOPRAZOLE SODIUM 40 MG VIAL IVPUSH ONE (14:33)
[2020-07-28 14:47] LABS: BASO % 0.8 % (0-2.0); HEMATOCRIT 20.5 % (35.4-49); LYMPH % 6.1 % (8-40); MCH 30.3 pg (25.7-33.7); MCHC 29.8 g/dl (32.0-35.9); MEAN CELL VOLUME 101.9 fl (80-96); MEAN PLT VOLUME 12.4 fl (7.5-11.1); NEUT % 86.1 % (42.8-82.8); PLATELET COUNT 98 K/MM3 (134-434); RBC 2.01 M/mm3 (4.00-5.60); RDW 17.7 % (11.9-15.9); WHITE BLOOD COUNT 15.1 K/mm3 (4.0-10.0)
[2020-07-28 14:54] LABS: INR 1.81 (0.83-1.09); PROTHROMBIN TIME (PATIENT) 21.9 SEC (9.7-13.0)
[2020-07-28 14:56] LABS: ACTIVATED PTT 25.9 SECONDS (25.2-36.5); HEMOGLOBIN 6.1 GM/dL (11.7-16.9)
[2020-07-28] MEDS ORDERED: PANTOPRAZOLE SODIUM 40 MG VIAL ONE ×2 (14:56→17:01)
[2020-07-28] MEDS ORDERED: OCTREOTIDE ACETATE 100 MCG/1 ML ONE (14:58)
[2020-07-28 15:11] LABS: CHLORIDE 106 mmol/L (98-107); SODIUM 141 mmol/L (136-145)
[2020-07-28 15:12] LABS: ALBUMIN 1.9 g/dl (3.4-5.0); BLOOD UREA NITROGEN 17.5 mg/dL (7-18); CALCIUM 8.2 mg/dL (8.5-10.1); CO2 9 mmol/L (21-32)
[2020-07-28 15:14] LABS: GLUCOSE,RANDOM 391 mg/dL (74-106)
[2020-07-28 15:16] LABS: CREATININE 1.7 mg/dL (0.55-1.3); SGOT/AST 75 U/L (15-37); SGPT/ALT 20 U/L (13-61)
[2020-07-28 15:18] LABS: ALK PHOS 121 U/L (45-117); BILIRUBIN,TOTAL 4.9 mg/dL (0.2-1); TOT PROT 5.7 g/dl (6.4-8.2)
[2020-07-28 15:21] LABS: ANION GAP 25 MMOL/L (8-16)
[2020-07-28] MEDS ORDERED: CALCIUM GLUCONATE 10% - 1,000 MG/10 ML VIAL IVPB ONE (15:28)
[2020-07-28] MEDS ORDERED: CALCIUM GLUC IN NACL, ISO-OSM 1 GM/50 ML BAG IVPB ONE ×2 (15:51→22:41)
[2020-07-28] MEDS ORDERED: MEROPENEM 1 GM in DEXTROSE 5%-WATER 100 ML IVPB ONE (16:10)
[2020-07-28 16:18] LABS: CHLORIDE 106 mmol/L (98-107); POTASSIUM 6.2 mmol/L (3.5-5.1); SODIUM 138 mmol/L (136-145)
[2020-07-28 16:20] LABS: BLOOD UREA NITROGEN 17.7 mg/dL (7-18); CALCIUM 8.1 mg/dL (8.5-10.1)
[2020-07-28] MEDS ORDERED: DEXTROSE 50%-WATER - 25 GM/50 ML VIAL IVPUSH ONE (16:20)
[2020-07-28] MEDS ORDERED: INSULIN REGULAR HUMAN 100 UNITS/ML *VIAL IVPUSH ONE ×2 (16:20→23:15)
[2020-07-28 16:21] LABS: CO2 9 mmol/L (21-32); GLUCOSE,RANDOM 390 mg/dL (74-106); MAGNESIUM 1.8 mg/dL (1.8-2.4)
[2020-07-28 16:23] LABS: ANION GAP 22 MMOL/L (8-16); POTASSIUM 6.1 mmol/L (3.5-5.1)
[2020-07-28 16:24] LABS: CREATININE 1.6 mg/dL (0.55-1.3); PHOSPHOROUS 4.9 mg/dL (2.5-4.9)
[2020-07-28] MEDS ORDERED: PANTOPRAZOLE SODIUM 80 MG in SODIUM CHLORIDE 100 ML IVPB SCH (16:30)
[2020-07-28] MEDS ORDERED: SODIUM BICARBONATE 8.4% - 150 MEQ in DEXTROSE 5%-WATER - 950 ML IVPB ONE (16:33)
[2020-07-28] MEDS ORDERED: SODIUM CHLORIDE 1,000 ML IV STA ×2 (16:44→23:27)
[2020-07-28] MEDS ORDERED: SODIUM BICARBONATE 8.4% 50 MEQ/50 ML VIAL IV SCH (16:45)
[2020-07-28] MEDS: CALCIUM GLUCONATE 10% - 1,000 MG/10 ML VIAL IVPUSH ONE ×2 (16:50→19:07)
[2020-07-28] MEDS ORDERED: OCTREOTIDE ACETATE 200 MCG, OCTREOTIDE ACETATE 1,000 MCG in DEXTROSE 5%-WATER - 496 ML IVPB SCH (17:00)
[2020-07-28] MEDS ORDERED: MEROPENEM 1 GM VIAL (RESTRICTED TO ID) IVPB ONE (17:28)
[2020-07-28] MEDS ORDERED: DEXTROSE 50%-WATER 25 GM/50 ML DISP.SYRIN ONE (17:29)
[2020-07-28] MEDS ORDERED: SODIUM BICARBONATE 8.4% - 50 ML ONE ×2 (17:30→17:59)
[2020-07-28] MEDS ORDERED: METOCLOPRAMIDE HCL INJECTION 10 MG/2 ML VIAL IVPUSH ONE (17:51)
[2020-07-28] MEDS ORDERED: MAGNESIUM SULF 50% (8.12 MEQ/2 ML-1 GM VIAL) IVPB ONE (17:58)
[2020-07-28] MEDS ORDERED: ERYTHROMYCIN *INJECTION* 500 MG VIAL IVPB ONE (18:43)
[2020-07-28 18:50] LABS: LACTIC ACID 16.8 mmol/L (0.4-2.0)
[2020-07-28] MEDS ORDERED: METOCLOPRAMIDE HCL INJECTION 10 MG/2 ML VIAL ONE (18:53)
[2020-07-28] MEDS ORDERED: MAGNESIUM SULFATE IN WATER 2 GM/50 ML IVPB IVPB ONE (18:54)
[2020-07-28] MEDS: SODIUM BICARBONATE 8.4% - 150 MEQ in DEXTROSE 5%-WATER - 950 ML IVPB SCH (19:48)
[2020-07-28 21:26] LABS: URINE APPEARANCE CLOUDY; URINE BILIRUBIN 1+ (NEGATIVE); URINE COLOR DK YELLOW; URINE GLUCOSE (UA) 2+ (NEGATIVE); URINE KETONE NEGATIVE (NEGATIVE); URINE LEUK ESTERASE NEGATIVE (NEGATIVE); URINE NITRITE NEGATIVE (NEGATIVE); URINE PROTEIN NEGATIVE (NEGATIVE)
[2020-07-28] MEDS ORDERED: CHLORHEXIDINE GLUCONATE 4% CLEANSER FOR DECOLONIZATION TP SCH (22:00)
[2020-07-28 22:04] LABS: HEMATOCRIT 18.6 % (35.4-49); MCH 30.7 pg (25.7-33.7); MCHC 31.5 g/dl (32.0-35.9); MEAN CELL VOLUME 97.7 fl (80-96); MEAN PLT VOLUME 12.5 fl (7.5-11.1); PLATELET COUNT 63 K/MM3 (134-434); RBC 1.91 M/mm3 (4.00-5.60); RDW 17.2 % (11.9-15.9); WHITE BLOOD COUNT 22.4 K/mm3 (4.0-10.0)
[2020-07-28 22:06] LABS: ARTERIAL BLD GAS O2 SATURATION 99.3 mmHg (95-98); ARTERIAL BLOOD GAS BASE EXCESS -15.5 mmol/L (-2-2); ARTERIAL BLOOD GAS PO2 199.3 mmHg (80-100); ARTERIAL BLOOD GAS pH 7.305 (7.350-7.450)
[2020-07-28 22:07] LABS: ALLENS TEST POSITIVE
[2020-07-28 22:14] LABS: HEMOGLOBIN 5.9 GM/dL (11.7-16.9)
[2020-07-28 22:27] LABS: CHLORIDE 105 mmol/L (98-107); SODIUM 137 mmol/L (136-145)
[2020-07-28 22:29] LABS: ALBUMIN 1.9 g/dl (3.4-5.0); ANION GAP 21 MMOL/L (8-16); BLOOD UREA NITROGEN 20.9 mg/dL (7-18); CALCIUM 7.8 mg/dL (8.5-10.1); CO2 11 mmol/L (21-32); GLUCOSE,RANDOM 420 mg/dL (74-106)
[2020-07-28 22:32] LABS: CREATININE 2.2 mg/dL (0.55-1.3); SGOT/AST 127 U/L (15-37); SGPT/ALT 29 U/L (13-61)
[2020-07-28 22:34] LABS: BILIRUBIN,TOTAL 5.4 mg/dL (0.2-1); TOT PROT 5.2 g/dl (6.4-8.2)
[2020-07-28 22:35] LABS: ALK PHOS 100 U/L (45-117)
[2020-07-28 23:15] LABS: LACTIC ACID 19.4 mmol/L (0.4-2.0)
[2020-07-28] MEDS ORDERED: CALCIUM GLUCONATE 10% - 1,000 MG/10 ML VIAL IVPUSH ONE (23:15)
[2020-07-28] MEDS ORDERED: SODIUM BICARBONATE 8.4% 50 MEQ/50 ML VIAL IVPUSH ONE (23:28)
[2020-07-28] MEDS ORDERED: FUROSEMIDE 40 MG/4 ML INJECTABLE VIAL IVPUSH ONE (23:29)
[2020-07-29] MEDS: SODIUM BICARBONATE 8.4% - 150 MEQ in DEXTROSE 5%-WATER - 950 ML IVPB SCH ×4 (01:00→10:25)
[2020-07-29 01:16] LABS: BASO % 0.2 % (0-2.0); HEMATOCRIT 18.1 % (35.4-49); LYMPH % 13.4 % (8-40); MCH 31.7 pg (25.7-33.7); MCHC 32.7 g/dl (32.0-35.9); MEAN CELL VOLUME 96.9 fl (80-96); MEAN PLT VOLUME 12.4 fl (7.5-11.1); MONO % 11.5 % (3.8-10.2); NEUT % 74.9 % (42.8-82.8); PLATELET COUNT 53 K/MM3 (134-434); RBC 1.86 M/mm3 (4.00-5.60); RDW 16.4 % (11.9-15.9); WHITE BLOOD COUNT 17.9 K/mm3 (4.0-10.0)
[2020-07-29] MEDS ORDERED: SODIUM BICARBONATE 8.4% 50 MEQ/50 ML VIAL IV SCH (01:23)
[2020-07-29 01:25] LABS: HEMOGLOBIN 5.9 GM/dL (11.7-16.9)
[2020-07-29 01:48] VITALS: BMI 38.7
[2020-07-29] MEDS: MUPIROCIN 2% TOPICAL OINTMENT FOR DECOLONIZATION NS SCH ×3 (01:53→21:14)
[2020-07-29] MEDS: OCTREOTIDE ACETATE 200 MCG, OCTREOTIDE ACETATE 1,000 MCG in DEXTROSE 5%-WATER - 496 ML IVPB SCH (01:54)
[2020-07-29] MEDS: PANTOPRAZOLE SODIUM 80 MG in SODIUM CHLORIDE 100 ML IVPB SCH ×3 (02:13→16:00)
[2020-07-29 07:17] LABS: POTASSIUM 5.5 mmol/L (3.5-5.1)
[2020-07-29 07:20] LABS: ALBUMIN 1.8 g/dl (3.4-5.0); BLOOD UREA NITROGEN 23.7 mg/dL (7-18); CALCIUM 7.2 mg/dL (8.5-10.1)
[2020-07-29 07:23] LABS: CREATININE 2.2 mg/dL (0.55-1.3)
[2020-07-29 07:25] LABS: BILIRUBIN,TOTAL 5.4 mg/dL (0.2-1); TOT PROT 4.8 g/dl (6.4-8.2)
[2020-07-29 09:04] LABS: BASO % 0.5 % (0-2.0); HEMATOCRIT 17.3 % (35.4-49); LYMPH % 12.4 % (8-40); MCH 31.6 pg (25.7-33.7); MCHC 34.6 g/dl (32.0-35.9); MEAN CELL VOLUME 91.5 fl (80-96); MONO % 11.1 % (3.8-10.2); RBC 1.89 M/mm3 (4.00-5.60); RDW 18.5 % (11.9-15.9); WHITE BLOOD COUNT 12.1 K/mm3 (4.0-10.0)
[2020-07-29 09:05] LABS: PLATELET COUNT 33 K/MM3 (134-434)
[2020-07-29] MEDS ORDERED: CALCIUM GLUCONATE IN NACL 1 GM/50 ML BAG IVPB ONE (09:05)
[2020-07-29] MEDS ORDERED: PT OWN MED DRAWER 7, Y5N ONE (09:37)
[2020-07-29] MEDS ORDERED: MUPIROCIN 2% TOPICAL OINTMENT FOR DECOLONIZATION NS SCH (10:00)
[2020-07-29] MEDS ORDERED: IMIPENEM/CILASTATIN SODIUM 500 MG in SODIUM CHLORIDE 100 ML IVPB SCH (10:00)
[2020-07-29 10:45] LABS: LACTIC ACID 4.7 mmol/L (0.4-2.0)
[2020-07-29] MEDS: INSULIN SLIDING SCALE (NOVOLOG) 1 VIAL SQ SCH ×3 (11:45→21:19)
[2020-07-29] MEDS ORDERED: cefTRIAXone SODIUM 1 GM VIAL ONE (12:00)
[2020-07-29] MEDS ORDERED: DEXTROSE 5%-WATER - 50 ML IVPB ONE (12:00)
[2020-07-29] MEDS: CEFTRIAXONE 1 GM in DEXTROSE 5%-WATER - 50 ML IVPB SCH (12:04)
[2020-07-29] MEDS: SODIUM CHLORIDE 0.45% 1,000 ML IV SCH (13:30)
[2020-07-29 14:39] LABS: BASO % 0.2 % (0-2.0); EOS % 0.2 % (0-4.5); HEMATOCRIT 18.8 % (35.4-49); MCH 31.1 pg (25.7-33.7); MCHC 33.9 g/dl (32.0-35.9); MEAN CELL VOLUME 91.7 fl (80-96); MEAN PLT VOLUME 11.3 fl (7.5-11.1); MONO % 9.8 % (3.8-10.2); NEUT % 80.8 % (42.8-82.8); PLATELET COUNT 42 K/MM3 (134-434); RBC 2.06 M/mm3 (4.00-5.60); RDW 18.2 % (11.9-15.9); WHITE BLOOD COUNT 10.4 K/mm3 (4.0-10.0)
[2020-07-29 14:42] LABS: INR 1.82 (0.83-1.09); PROTHROMBIN TIME (PATIENT) 21.6 SEC (9.7-13.0)
[2020-07-29 14:44] LABS: HEMOGLOBIN 6.4 GM/dL (11.7-16.9)
[2020-07-29 14:45] LABS: ACTIVATED PTT 26.5 SECONDS (25.2-36.5)
[2020-07-29 14:50] LABS: CHLORIDE 106 mmol/L (98-107); POTASSIUM 4.5 mmol/L (3.5-5.1); SODIUM 141 mmol/L (136-145)
[2020-07-29 14:52] LABS: ALBUMIN 1.9 g/dl (3.4-5.0); ANION GAP 2 MMOL/L (8-16); BLOOD UREA NITROGEN 27.3 mg/dL (7-18); CALCIUM 7.4 mg/dL (8.5-10.1); CO2 33 mmol/L (21-32); MAGNESIUM 1.9 mg/dL (1.8-2.4)
[2020-07-29 14:55] LABS: CREATININE 1.8 mg/dL (0.55-1.3); PHOSPHOROUS 2.7 mg/dL (2.5-4.9); SGOT/AST 596 U/L (15-37)
[2020-07-29 14:58] LABS: ALK PHOS 93 U/L (45-117)
[2020-07-29 15:04] LABS: SGPT/ALT 74 U/L (13-61)
[2020-07-29 15:28] LABS: GLUCOSE,RANDOM 405 mg/dL (74-106)
[2020-07-29 16:00] LABS: LACTIC ACID 3.3 mmol/L (0.4-2.0)
[2020-07-29 18:39] LABS: HEMATOCRIT 21.1 % (35.4-49); MCH 30.9 pg (25.7-33.7); WHITE BLOOD COUNT 9.8 K/mm3 (4.0-10.0)
[2020-07-29 18:47] LABS: INR 1.78 (0.83-1.09); PROTHROMBIN TIME (PATIENT) 21.2 SEC (9.7-13.0)
[2020-07-29 18:49] LABS: ACTIVATED PTT 29.3 SECONDS (25.2-36.5)
[2020-07-29 19:20] LABS: HEMOGLOBIN 7.1 GM/dL (11.7-16.9); MCHC 33.9 g/dl (32.0-35.9); MEAN PLT VOLUME 8.6 fl (7.5-11.1); PLATELET COUNT 61 K/MM3 (134-434); RBC 2.31 M/mm3 (4.00-5.60); RDW 17.3 % (11.9-15.9)
[2020-07-29] MEDS: CHLORHEXIDINE GLUCONATE 4% CLEANSER FOR DECOLONIZATION TP SCH (21:14)
[2020-07-29] MEDS: IMIPENEM/CILASTATIN SODIUM 500 MG in SODIUM CHLORIDE 100 ML IVPB SCH (21:14)
[2020-07-30 00:39] LABS: HEMATOCRIT 20.8 % (35.4-49); HEMOGLOBIN 7.1 GM/dL (11.7-16.9); MCH 31.1 pg (25.7-33.7); MEAN CELL VOLUME 91.3 fl (80-96); PLATELET COUNT 62 K/MM3 (134-434); RBC 2.28 M/mm3 (4.00-5.60); RDW 17.5 % (11.9-15.9); WHITE BLOOD COUNT 12.8 K/mm3 (4.0-10.0)
[2020-07-30 00:49] LABS: INR 1.68 (0.83-1.09)
[2020-07-30 00:52] LABS: ACTIVATED PTT 29.5 SECONDS (25.2-36.5)
[2020-07-30] MEDS: OCTREOTIDE ACETATE 200 MCG, OCTREOTIDE ACETATE 1,000 MCG in DEXTROSE 5%-WATER - 496 ML IVPB SCH (03:00)
[2020-07-30] MEDS: IMIPENEM/CILASTATIN SODIUM 500 MG in SODIUM CHLORIDE 100 ML IVPB SCH ×4 (03:49→22:00)
[2020-07-30] MEDS: INSULIN SLIDING SCALE (NOVOLOG) 1 VIAL SQ SCH ×4 (06:32→21:55)
[2020-07-30 06:46] LABS: HEMATOCRIT 20.5 % (35.4-49); MCH 30.6 pg (25.7-33.7); MCHC 33.4 g/dl (32.0-35.9); MEAN CELL VOLUME 91.7 fl (80-96); MEAN PLT VOLUME 10.3 fl (7.5-11.1); PLATELET COUNT 57 K/MM3 (134-434); RBC 2.24 M/mm3 (4.00-5.60); RDW 17.8 % (11.9-15.9); WHITE BLOOD COUNT 11.2 K/mm3 (4.0-10.0)
[2020-07-30 06:57] LABS: HEMOGLOBIN 6.9 GM/dL (11.7-16.9)
[2020-07-30 07:02] LABS: POTASSIUM 3.9 mmol/L (3.5-5.1)
[2020-07-30 07:05] LABS: CALCIUM 7.5 mg/dL (8.5-10.1); INR 1.75 (0.83-1.09); PROTHROMBIN TIME (PATIENT) 20.8 SEC (9.7-13.0)
[2020-07-30 07:06] LABS: BLOOD UREA NITROGEN 26.5 mg/dL (7-18)
[2020-07-30 07:07] LABS: ACTIVATED PTT 28.7 SECONDS (25.2-36.5)
[2020-07-30 07:09] LABS: CREATININE 1.5 mg/dL (0.55-1.3)
[2020-07-30 07:11] LABS: BILIRUBIN,TOTAL 6.9 mg/dL (0.2-1); TOT PROT 4.9 g/dl (6.4-8.2)
[2020-07-30] MEDS ORDERED: DEXTROSE 5%-WATER - 50 ML IVPB ONE (09:02)
[2020-07-30] MEDS ORDERED: cefTRIAXone SODIUM 1 GM VIAL ONE (09:02)
[2020-07-30] MEDS ORDERED: PT OWN MED DRAWER 7, Y5N ONE ×3 (09:02→22:27)
[2020-07-30] MEDS: MUPIROCIN 2% TOPICAL OINTMENT FOR DECOLONIZATION NS SCH ×2 (09:41→21:56)
[2020-07-30] MEDS: CEFTRIAXONE 1 GM in DEXTROSE 5%-WATER - 50 ML IVPB SCH (09:41)
[2020-07-30] MEDS ORDERED: IMIPENEM/CILASTATIN SODIUM 500 MG in SODIUM CHLORIDE 100 ML IVPB SCH (10:00)
[2020-07-30 13:29] LABS: HEMATOCRIT 23.5 % (35.4-49); HEMOGLOBIN 7.9 GM/dL (11.7-16.9); MCH 30.6 pg (25.7-33.7); MCHC 33.5 g/dl (32.0-35.9); MEAN CELL VOLUME 91.6 fl (80-96); MEAN PLT VOLUME 10.5 fl (7.5-11.1); PLATELET COUNT 62 K/MM3 (134-434); RBC 2.57 M/mm3 (4.00-5.60); RDW 17.4 % (11.9-15.9); WHITE BLOOD COUNT 12.2 K/mm3 (4.0-10.0)
[2020-07-30] MEDS: SODIUM CHLORIDE 0.45% 1,000 ML IV SCH (13:30)
[2020-07-30] MEDS ORDERED: PHYTONADIONE 10 MG/1 ML AMP SQ ONE (13:40)
[2020-07-30 13:42] LABS: INR 1.68 (0.83-1.09); PROTHROMBIN TIME (PATIENT) 20.3 SEC (9.7-13.0)
[2020-07-30 13:44] LABS: ACTIVATED PTT 29.5 SECONDS (25.2-36.5)
[2020-07-30] MEDS ORDERED: SODIUM CHLORIDE 0.45% 1,000 ML IV SCH (18:22)
[2020-07-30] MEDS: CHLORHEXIDINE GLUCONATE 4% CLEANSER FOR DECOLONIZATION TP SCH (21:55)
[2020-07-31 02:53] LABS: HEMATOCRIT 22.8 % (35.4-49); HEMOGLOBIN 7.6 GM/dL (11.7-16.9); MCH 30.7 pg (25.7-33.7); MCHC 33.1 g/dl (32.0-35.9); MEAN CELL VOLUME 92.8 fl (80-96); MEAN PLT VOLUME 10.2 fl (7.5-11.1); PLATELET COUNT 54 K/MM3 (134-434); RBC 2.46 M/mm3 (4.00-5.60); RDW 17.3 % (11.9-15.9); WHITE BLOOD COUNT 11.4 K/mm3 (4.0-10.0)
[2020-07-31] MEDS: IMIPENEM/CILASTATIN SODIUM 500 MG in SODIUM CHLORIDE 100 ML IVPB SCH ×4 (03:30→21:36)
[2020-07-31] MEDS: INSULIN SLIDING SCALE (NOVOLOG) 1 VIAL SQ SCH ×4 (06:05→21:39)
[2020-07-31 06:40] LABS: INR 1.62 (0.83-1.09); PROTHROMBIN TIME (PATIENT) 19.6 SEC (9.7-13.0)
[2020-07-31 06:42] LABS: ACTIVATED PTT 29.5 SECONDS (25.2-36.5)
[2020-07-31 06:55] LABS: POTASSIUM 3.5 mmol/L (3.5-5.1)
[2020-07-31 07:01] LABS: BLOOD UREA NITROGEN 20.7 mg/dL (7-18); CALCIUM 7.3 mg/dL (8.5-10.1)
[2020-07-31 07:02] LABS: ALBUMIN 1.9 g/dl (3.4-5.0)
[2020-07-31 07:05] LABS: CREATININE 1.3 mg/dL (0.55-1.3)
[2020-07-31 07:06] LABS: TOT PROT 5.2 g/dl (6.4-8.2)
[2020-07-31 07:49] LABS: HEMATOCRIT 23.2 % (35.4-49); MCH 31.6 pg (25.7-33.7); MCHC 34.4 g/dl (32.0-35.9); MEAN CELL VOLUME 91.8 fl (80-96); MEAN PLT VOLUME 10.3 fl (7.5-11.1); PLATELET COUNT 62 K/MM3 (134-434); RBC 2.53 M/mm3 (4.00-5.60); RDW 17.7 % (11.9-15.9); WHITE BLOOD COUNT 12.4 K/mm3 (4.0-10.0)
[2020-07-31] MEDS ORDERED: cefTRIAXone SODIUM 1 GM VIAL ONE (08:46)
[2020-07-31] MEDS ORDERED: DEXTROSE 5%-WATER - 50 ML IVPB ONE (08:46)
[2020-07-31] MEDS ORDERED: PT OWN MED DRAWER 7, Y5N ONE ×2 (08:46→14:16)
[2020-07-31] MEDS: CEFTRIAXONE 1 GM in DEXTROSE 5%-WATER - 50 ML IVPB SCH (09:34)
[2020-07-31] MEDS: MUPIROCIN 2% TOPICAL OINTMENT FOR DECOLONIZATION NS SCH ×2 (09:34→21:39)
[2020-07-31] MEDS: SODIUM CHLORIDE 0.45% 1,000 ML IV SCH ×2 (17:15→21:39)
[2020-07-31] MEDS: CHLORHEXIDINE GLUCONATE 4% CLEANSER FOR DECOLONIZATION TP SCH (21:36)
[2020-08-01] MEDS: IMIPENEM/CILASTATIN SODIUM 500 MG in SODIUM CHLORIDE 100 ML IVPB SCH ×3 (02:32→18:23)
[2020-08-01] MEDS: INSULIN SLIDING SCALE (NOVOLOG) 1 VIAL SQ SCH ×4 (06:29→21:27)
[2020-08-01 06:47] LABS: HEMATOCRIT 24.8 % (35.4-49); HEMOGLOBIN 8.6 GM/dL (11.7-16.9); MCH 32.1 pg (25.7-33.7); MCHC 34.4 g/dl (32.0-35.9); MEAN CELL VOLUME 93.1 fl (80-96); MEAN PLT VOLUME 10.7 fl (7.5-11.1); PLATELET COUNT 71 K/MM3 (134-434); RBC 2.67 M/mm3 (4.00-5.60); RDW 17.1 % (11.9-15.9); WHITE BLOOD COUNT 13.4 K/mm3 (4.0-10.0)
[2020-08-01 07:16] LABS: POTASSIUM 3.4 mmol/L (3.5-5.1)
[2020-08-01 07:18] LABS: BLOOD UREA NITROGEN 16.5 mg/dL (7-18); CALCIUM 7.3 mg/dL (8.5-10.1)
[2020-08-01 07:19] LABS: ALBUMIN 1.9 g/dl (3.4-5.0)
[2020-08-01 07:21] LABS: CREATININE 1.2 mg/dL (0.55-1.3)
[2020-08-01 07:23] LABS: BILIRUBIN,TOTAL 7.9 mg/dL (0.2-1); TOT PROT 5.4 g/dl (6.4-8.2)
[2020-08-01] MEDS ORDERED: PT OWN MED DRAWER 7, Y5N ONE ×2 (08:51→15:12)
[2020-08-01] MEDS ORDERED: DEXTROSE 5%-WATER - 50 ML IVPB ONE (08:52)
[2020-08-01] MEDS ORDERED: cefTRIAXone SODIUM 1 GM VIAL ONE (08:52)
[2020-08-01] MEDS: CEFTRIAXONE 1 GM in DEXTROSE 5%-WATER - 50 ML IVPB SCH (09:07)
[2020-08-01] MEDS ORDERED: POTASSIUM CHLORIDE ORAL LIQUID 20 MEQ/15 ML PO ONE ×2 (14:31→15:03)
[2020-08-01] MEDS ORDERED: SODIUM CHLORIDE 0.45% 1,000 ML with POTASSIUM CHLORIDE 20 MEQ IV SCH (14:32)
[2020-08-01] MEDS ORDERED: POTASSIUM CHLORIDE 10 MEQ in SODIUM CHLORIDE 0.45% 1,000 ML IV SCH (15:00)
[2020-08-01] MEDS: CHLORHEXIDINE GLUCONATE 4% CLEANSER FOR DECOLONIZATION TP SCH (21:27)
[2020-08-01] MEDS: MUPIROCIN 2% TOPICAL OINTMENT FOR DECOLONIZATION NS SCH ×2 (21:27)
[2020-08-02] MEDS: INSULIN SLIDING SCALE (NOVOLOG) 1 VIAL SQ SCH ×4 (06:23→22:35)
[2020-08-02] MEDS ORDERED: POTASSIUM CHLORIDE 10 MEQ in SODIUM CHLORIDE 0.45% 1,000 ML IV SCH (07:00)
[2020-08-02 07:08] LABS: BASO % 0.8 % (0-2.0); EOS % 1.3 % (0-4.5); HEMATOCRIT 24.8 % (35.4-49); HEMOGLOBIN 8.5 GM/dL (11.7-16.9); LYMPH % 11.9 % (8-40); MCH 31.9 pg (25.7-33.7); MCHC 34.1 g/dl (32.0-35.9); MEAN CELL VOLUME 93.5 fl (80-96); MEAN PLT VOLUME 11.5 fl (7.5-11.1); MONO % 12.3 % (3.8-10.2); NEUT % 73.7 % (42.8-82.8); PLATELET COUNT 76 K/MM3 (134-434); RBC 2.66 M/mm3 (4.00-5.60); RDW 17.1 % (11.9-15.9); WHITE BLOOD COUNT 14.8 K/mm3 (4.0-10.0)
[2020-08-02 07:30] LABS: CHLORIDE 100 mmol/L (98-107); POTASSIUM 3.6 mmol/L (3.5-5.1); SODIUM 133 mmol/L (136-145)
[2020-08-02 07:38] LABS: ALBUMIN 1.8 g/dl (3.4-5.0); ANION GAP 8 MMOL/L (8-16); BLOOD UREA NITROGEN 15.6 mg/dL (7-18); CO2 25 mmol/L (21-32); GLUCOSE,RANDOM 156 mg/dL (74-106)
[2020-08-02 07:40] LABS: SGPT/ALT 53 U/L (13-61)
[2020-08-02 07:41] LABS: CREATININE 1.3 mg/dL (0.55-1.3); SGOT/AST 158 U/L (15-37)
[2020-08-02 07:42] LABS: BILIRUBIN,TOTAL 9.7 mg/dL (0.2-1); TOT PROT 5.2 g/dl (6.4-8.2)
[2020-08-02 07:43] LABS: ALK PHOS 97 U/L (45-117)
[2020-08-02 07:59] LABS: CALCIUM 6.8 mg/dL (8.5-10.1)
[2020-08-02] MEDS ORDERED: cefTRIAXone SODIUM 1 GM VIAL ONE (09:37)
[2020-08-02] MEDS ORDERED: DEXTROSE 5%-WATER - 50 ML IVPB ONE (09:38)
[2020-08-02] MEDS ORDERED: CEFTRIAXONE 1 GM in DEXTROSE 5%-WATER - 50 ML IVPB SCH (10:00)
[2020-08-02] MEDS: MUPIROCIN 2% TOPICAL OINTMENT FOR DECOLONIZATION NS SCH ×2 (13:03→22:39)
[2020-08-02] MEDS: CHLORHEXIDINE GLUCONATE 4% CLEANSER FOR DECOLONIZATION TP SCH (22:39)
[2020-08-03 06:34] LABS: POTASSIUM 3.8 mmol/L (3.5-5.1)
[2020-08-03 06:36] LABS: CALCIUM 7.2 mg/dL (8.5-10.1)
[2020-08-03 06:37] LABS: BLOOD UREA NITROGEN 17.1 mg/dL (7-18)
[2020-08-03 06:40] LABS: CREATININE 1.4 mg/dL (0.55-1.3)
[2020-08-03 06:42] LABS: BILIRUBIN,TOTAL 11.2 mg/dL (0.2-1); TOT PROT 5.4 g/dl (6.4-8.2)
[2020-08-03 06:46] LABS: BASO % 0.5 % (0-2.0); EOS % 1.2 % (0-4.5); HEMATOCRIT 25.1 % (35.4-49); HEMOGLOBIN 8.9 GM/dL (11.7-16.9); LYMPH % 11.6 % (8-40); MCH 33.9 pg (25.7-33.7); MCHC 35.4 g/dl (32.0-35.9); MEAN CELL VOLUME 95.7 fl (80-96); MEAN PLT VOLUME 11.3 fl (7.5-11.1); MONO % 12.9 % (3.8-10.2); NEUT % 73.8 % (42.8-82.8); PLATELET COUNT 81 K/MM3 (134-434); RBC 2.62 M/mm3 (4.00-5.60); RDW 17.7 % (11.9-15.9); WHITE BLOOD COUNT 13.6 K/mm3 (4.0-10.0)
[2020-08-03 09:02] VITALS: PULSE 80
[2020-08-03] MEDS: INSULIN SLIDING SCALE (NOVOLOG) 1 VIAL SQ SCH ×2 (11:36→11:37)
[2020-08-03 12:36] VITALS: BP 148/71; TEMP 98
== END 2020-08-03 14:45 | disposition home or self-care (01) | DRG 253 ==
LOC: JER 13:33 → JERBED 16:34 → JICU 07-29 00:11
PROVIDERS: ADMIT Internal Medicine Pulmonary Disease; ATTEND Internal Medicine
PROC: 06HM33Z Insertion of Infusion Device into Right Femoral Vein, Percutaneous Approach (ICD-10-PCS; principal; 2020-07-28)
PROC: 30233N1 Transfusion of Nonautologous Red Blood Cells into Peripheral Vein, Percutaneous Approach (ICD-10-PCS; 2020-07-28)
PROC: 30233L1 Transfusion of Nonautologous Fresh Plasma into Peripheral Vein, Percutaneous Approach (ICD-10-PCS; 2020-07-28)
PROC: 30233K1 Transfusion of Nonautologous Frozen Plasma into Peripheral Vein, Percutaneous Approach (ICD-10-PCS; 2020-07-28)
PROC: 30233R1 Transfusion of Nonautologous Platelets into Peripheral Vein, Percutaneous Approach (ICD-10-PCS; 2020-07-29)
PROC: 0DJ08ZZ Inspection of Upper Intestinal Tract, Via Natural or Artificial Opening Endoscopic (ICD-10-PCS; 2020-07-29)
DX: K92.2 Gastrointestinal hemorrhage, unspecified (principal); E66.9 Obesity, unspecified; Z68.38 Body mass index [BMI] 38.0-38.9, adult; E11.9 Type 2 diabetes mellitus without complications; E78.5 Hyperlipidemia, unspecified; I85.00 Esophageal varices without bleeding; D72.829 Elevated white blood cell count, unspecified; D62 Acute posthemorrhagic anemia; E87.5 Hyperkalemia; E87.2 Acidosis; D69.6 Thrombocytopenia, unspecified; N17.9 Acute kidney failure, unspecified; R57.8 Other shock; E87.6 Hypokalemia; K70.31 Alcoholic cirrhosis of liver with ascites
CPT/HCPCS: 36415; 36430; 36511; 36600; 70450-TC; 71045-TC-FY; 74018-TC-FY; 74176-TC; 80048; 80053; 81003; 82140; 82248; 82803; 82962; 83605; 83735; 83880; 84100; 84132; 84300; 84484; 85025; 85027; 85379; 85384; 85610; 85730; 86850; 86900; 86901; 86922; 87040; 87077; 87086; 93005; 93010; 99291; C9803; P9017; P9034; P9038; P9058; U0003

== ENCOUNTER 2020-12-15 00:02 | Emergency (ER) | payer OTHER ==
[2020-12-15 00:31] VITALS: PULSE 82; BMI 37.5
[2020-12-15 03:13] LABS: EOS % 1.6 % (0-4.5); HEMATOCRIT 30.1 % (35.4-49); MCH 28.3 pg (25.7-33.7); MEAN CELL VOLUME 85.8 fl (80-96); MEAN PLT VOLUME 10.7 fl (7.5-11.1); MONO % 15.1 % (3.8-10.2); NEUT % 61.3 % (42.8-82.8); PLATELET COUNT 58 10^3/uL (134-434); RBC 3.51 M/mm3 (4.00-5.60); RDW 16.5 % (11.9-15.9); WHITE BLOOD COUNT 4.8 K/mm3 (4.0-10.0)
[2020-12-15 03:20] LABS: INR 1.47 (0.83-1.09); PROTHROMBIN TIME (PATIENT) 17.9 SEC (9.7-13.0)
[2020-12-15 03:23] LABS: ACTIVATED PTT 34.1 SECONDS (25.2-36.5)
[2020-12-15 03:30] LABS: CHLORIDE 104 mmol/L (98-107); SODIUM 139 mmol/L (136-145)
[2020-12-15 03:33] LABS: GLUCOSE,RANDOM 110 mg/dL (74-106)
[2020-12-15 03:36] LABS: CREATININE 1.6 mg/dL (0.55-1.3); SGOT/AST 43 U/L (15-37); SGPT/ALT 22 U/L (13-61)
[2020-12-15 03:39] LABS: ALK PHOS 117 U/L (45-117); BILIRUBIN,TOTAL 2.2 mg/dL (0.2-1); TOT PROT 8.2 g/dl (6.4-8.2)
[2020-12-15 03:52] LABS: ANION GAP 8 MMOL/L (8-16); CO2 27 mmol/L (21-32)
[2020-12-15 04:07] VITALS: BP 148/85; TEMP 98.4
== END 2020-12-15 04:12 | disposition home or self-care (01) ==
LOC: JER 00:02
DX: M25.561 Pain in right knee (principal); G89.29 Other chronic pain; R55 Syncope and collapse; W01.0XXA Fall on same level from slipping, tripping and stumbling without subsequent striking against object, initial encounter; Y93.01 Activity, walking, marching and hiking
CPT/HCPCS: 36415; 70450-TC; 72125-TC; 80053; 84484; 85025; 85610; 85730; 93005; 93010; 99285-25

== ENCOUNTER 2021-04-11 00:56 | Emergency (ER) | payer OTHER ==
[2021-04-11 01:18] VITALS: BMI 38.7
[2021-04-11 01:31] VITALS: TEMP 98.3
[2021-04-11 02:59] LABS: BASO % 1.2 % (0-2.0); EOS % 1.2 % (0-4.5); HEMATOCRIT 28.5 % (35.4-49); HEMOGLOBIN 9.4 GM/dL (11.7-16.9); LYMPH % 21.1 % (8-40); MCH 28.1 pg (25.7-33.7); MEAN PLT VOLUME 10.5 fl (7.5-11.1); MONO % 13.1 % (3.8-10.2); NEUT % 63.4 % (42.8-82.8); PLATELET COUNT 48 10^3/uL (134-434); RBC 3.36 M/mm3 (4.00-5.60); RDW 15.3 % (11.9-15.9); WHITE BLOOD COUNT 4.4 K/mm3 (4.0-10.0)
[2021-04-11 03:19] LABS: CALCIUM 8.4 mg/dL (8.5-10.1)
[2021-04-11 03:20] LABS: ALBUMIN 2.6 g/dl (3.4-5.0); BLOOD UREA NITROGEN 14.7 mg/dL (7-18)
[2021-04-11 03:21] LABS: MAGNESIUM 1.7 mg/dL (1.8-2.4)
[2021-04-11 03:23] LABS: CREATININE 1.5 mg/dL (0.55-1.3)
[2021-04-11 03:25] LABS: BILIRUBIN,TOTAL 1.3 mg/dL (0.2-1); TOT PROT 7.2 g/dl (6.4-8.2)
[2021-04-11] MEDS ORDERED: MAGNESIUM OXIDE 400 MG TABLET (FP) PO ONE (04:27)
[2021-04-11] MEDS ORDERED: MAGNESIUM OXIDE 400 MG TABLET (FP) ONE (04:31)
[2021-04-11 04:48] LABS: EPI CELLS 6 /uL (0-25.1); HYALINE CASTS 1 /uL (0-3.1); PH,URINE 6.5 (5.0-8.0); URINE APPEARANCE Error; URINE BACTERIA 3 /uL (0-1359); URINE BILIRUBIN NEGATIVE (NEGATIVE); URINE COLOR YELLOW; URINE GLUCOSE (UA) 1+ (NEGATIVE); URINE KETONE NEGATIVE (NEGATIVE); URINE LEUK ESTERASE NEGATIVE (NEGATIVE); URINE NITRITE NEGATIVE (NEGATIVE); URINE PROTEIN 1+ (NEGATIVE); URINE RBC 3 /uL (0-23.9); URINE WBC 10 /uL (0-25.8)
[2021-04-11 05:00] LABS: PHENCYCLIDINE,URINE NEGATIVE (NEGATIVE); URINE BENZODIAZEPINES NEGATIVE (NEGATIVE)
[2021-04-11 05:01] LABS: COCAINE, UR NEGATIVE (NEGATIVE); OPIATES, URI NEGATIVE (NEGATIVE); URINE BARBITURATES NEGATIVE (NEGATIVE)
[2021-04-11 05:17] VITALS: BP 146/70; PULSE 65
[2021-04-11 05:46] LABS: METHADONE, UR NEGATIVE (NEGATIVE); URINE AMPHETAMINES NEGATIVE (NEGATIVE)
[2021-04-11 07:56] LABS: PLATELET ESTIMATE MOD DECREASED
== END 2021-04-11 05:29 | disposition home or self-care (01) ==
LOC: JER 00:56
DX: R55 Syncope and collapse (principal); R46.89 Other symptoms and signs involving appearance and behavior
CPT/HCPCS: 36415; 70450-TC; 73110-TC-RT-FY; 73130-TC-RT-FY; 80053; 80307; 81003; 82550; 82553; 83735; 84484; 85025; 87086; 93005; 93010; 99285-25

== ENCOUNTER 2021-07-03 15:32 | Emergency (ER) | payer OTHER ==
[2021-07-03 15:44] VITALS: BMI 38.7
[2021-07-03] MEDS ORDERED: INSULIN REGULAR HUMAN 100 UNITS/ML *VIAL IVPUSH ONE (18:31)
[2021-07-03 18:33] LABS: VENOUS BASE EXCESS -3.4 mmol/L (-2-2); VENOUS O2 SATURATION 70.1 % (70-80); VENOUS PCO2 45.4 mmHg (38-52); VENOUS PH 7.318 (7.310-7.410)
[2021-07-03 18:36] LABS: BASO % 1.1 % (0-2.0); HEMATOCRIT 32.3 % (35.4-49); HEMOGLOBIN 10.8 GM/dL (11.7-16.9); LYMPH % 30.8 % (8-40); MCH 28.3 pg (25.7-33.7); MCHC 33.5 g/dl (32.0-35.9); MEAN CELL VOLUME 84.4 fl (80-96); MEAN PLT VOLUME 10.8 fl (7.5-11.1); MONO % 10.2 % (3.8-10.2); NEUT % 55.9 % (42.8-82.8); PLATELET COUNT 50 10^3/uL (134-434); RBC 3.83 M/mm3 (4.00-5.60); RDW 14.9 % (11.9-15.9); WHITE BLOOD COUNT 4.1 K/mm3 (4.0-10.0)
[2021-07-03] MEDS ORDERED: INSULIN (NOVOLOG) ASPART 100 UNITS/ML 10ML VIAL SQ ONE (18:40)
[2021-07-03] MEDS ORDERED: INSULIN SLIDING SCALE (NOVOLOG) 1 VIAL SQ ONE (18:46)
[2021-07-03 18:57] LABS: ALBUMIN 3.1 g/dl (3.4-5.0); CALCIUM 8.5 mg/dL (8.5-10.1)
[2021-07-03 18:58] LABS: BLOOD UREA NITROGEN 18.8 mg/dL (7-18)
[2021-07-03 19:02] LABS: CREATININE 1.8 mg/dL (0.55-1.3); TOT PROT 8.2 g/dl (6.4-8.2)
[2021-07-03 20:18] VITALS: BP 149/87; PULSE 78; TEMP 98.9
== END 2021-07-03 20:39 | disposition home or self-care (01) ==
LOC: JER 15:32
PROC: 3E023GC Introduction of Other Therapeutic Substance into Muscle, Percutaneous Approach (ICD-10-PCS; principal; 2021-07-03)
DX: E11.65 Type 2 diabetes mellitus with hyperglycemia (principal)
CPT/HCPCS: 36415; 80053; 82010; 82803; 82962; 85025; 93005; 93010; 96372; 99284-25

== ENCOUNTER 2021-12-23 21:40 | Emergency (ER) | payer OTHER ==
[2021-12-23 21:58] VITALS: TEMP 98.8; BMI 42.5
[2021-12-23] MEDS ORDERED: METOCLOPRAMIDE HCL INJECTION 10 MG/2 ML VIAL IVPUSH ONE (22:49)
[2021-12-23] MEDS ORDERED: SODIUM CHLORIDE 0.9% 500 ML INFUS.BAG IV ONE (22:49)
[2021-12-23 23:24] LABS: BASO % 0.9 % (0-2.0); EOS % 1.9 % (0-4.5); HEMATOCRIT 31.6 % (35.4-49); HEMOGLOBIN 10.5 GM/dL (11.7-16.9); LYMPH % 22.8 % (8-40); MCH 29.7 pg (25.7-33.7); MCHC 33.3 g/dl (32.0-35.9); MEAN PLT VOLUME 10.1 fl (7.5-11.1); MONO % 10.9 % (3.8-10.2); NEUT % 63.5 % (42.8-82.8); PLATELET COUNT 39 10^3/uL (134-434); RBC 3.55 M/mm3 (4.00-5.60); VENOUS BASE EXCESS -1.3 mmol/L (-2-2); VENOUS O2 SATURATION 36.3 % (70-80); VENOUS PCO2 48.5 mmHg (38-52); VENOUS PH 7.329 (7.310-7.410)
[2021-12-23 23:33] LABS: INR 1.34 (0.83-1.09); PROTHROMBIN TIME (PATIENT) 15.4 SEC (9.7-13.0)
[2021-12-23 23:35] LABS: ACTIVATED PTT 30.9 SECONDS (25.2-36.5)
[2021-12-23] MEDS ORDERED: METOCLOPRAMIDE HCL INJECTION 10 MG/2 ML VIAL ONE (23:41)
[2021-12-23 23:42] LABS: CHLORIDE 103 mmol/L (98-107); SODIUM 136 mmol/L (136-145)
[2021-12-23 23:44] LABS: CALCIUM 8.8 mg/dL (8.5-10.1)
[2021-12-23 23:45] LABS: ALBUMIN 3.1 g/dl (3.4-5.0); ANION GAP 8 MMOL/L (8-16); BLOOD UREA NITROGEN 14.3 mg/dL (7-18); CO2 25 mmol/L (21-32); GLUCOSE,RANDOM 329 mg/dL (74-106)
[2021-12-23 23:47] LABS: SGPT/ALT 29 U/L (13-61)
[2021-12-23 23:48] LABS: CREATININE 1.8 mg/dL (0.55-1.3); SGOT/AST 32 U/L (15-37)
[2021-12-23 23:49] LABS: BILIRUBIN,TOTAL 0.8 mg/dL (0.2-1); TOT PROT 7.7 g/dl (6.4-8.2)
[2021-12-23 23:51] LABS: ALK PHOS 122 U/L (45-117)
[2021-12-23 23:54] LABS: PLATELET ESTIMATE DECREASED
[2021-12-24 01:34] VITALS: BP 138/76; PULSE 68; RESP 18
[2021-12-25 12:26] LABS: LIPASE 190 U/L (73-393)
== END 2021-12-24 01:34 | disposition home or self-care (01) ==
LOC: JER 21:40
PROC: 3E033GC Introduction of Other Therapeutic Substance into Peripheral Vein, Percutaneous Approach (ICD-10-PCS; principal; 2021-12-23)
DX: R73.9 Hyperglycemia, unspecified (principal); R51.9 Headache, unspecified
CPT/HCPCS: 36415; 70450-TC; 80053; 80307; 82010; 82803; 82962; 83690; 85025; 85610; 85730; 93005; 93010; 99285-25

== ENCOUNTER 2022-01-02 21:11 | Emergency (ER) | payer OTHER ==
[2022-01-02 21:29] VITALS: BMI 42.5
[2022-01-02] MEDS ORDERED: SODIUM CHLORIDE 1,000 ML IV STA (22:40)
[2022-01-02 23:12] LABS: VENOUS BASE EXCESS -1.7 mmol/L (-2-2); VENOUS O2 SATURATION 56.7 % (70-80); VENOUS PCO2 44.6 mmHg (38-52); VENOUS PH 7.351 (7.310-7.410)
[2022-01-02 23:14] LABS: BASO % 0.5 % (0-2.0); EOS % 1.7 % (0-4.5); HEMATOCRIT 29.9 % (35.4-49); HEMOGLOBIN 9.9 GM/dL (11.7-16.9); LYMPH % 26.2 % (8-40); MCH 29.7 pg (25.7-33.7); MCHC 33.1 g/dl (32.0-35.9); MEAN CELL VOLUME 89.8 fl (80-96); MONO % 11.4 % (3.8-10.2); NEUT % 60.2 % (42.8-82.8); PLATELET COUNT 41 10^3/uL (134-434); RBC 3.33 M/mm3 (4.00-5.60); RDW 14.4 % (11.9-15.9); WHITE BLOOD COUNT 4.4 K/mm3 (4.0-10.0)
[2022-01-02 23:37] LABS: COCAINE, UR NEGATIVE (NEGATIVE)
[2022-01-02 23:38] LABS: METHADONE, UR NEGATIVE (NEGATIVE); OPIATES, URI NEGATIVE (NEGATIVE); PHENCYCLIDINE,URINE NEGATIVE (NEGATIVE); URINE BARBITURATES NEGATIVE (NEGATIVE); URINE BENZODIAZEPINES NEGATIVE (NEGATIVE)
[2022-01-02 23:41] LABS: CHLORIDE 104 mmol/L (98-107); SODIUM 137 mmol/L (136-145)
[2022-01-02 23:44] LABS: ALBUMIN 2.7 g/dl (3.4-5.0); ANION GAP 8 MMOL/L (8-16); BLOOD UREA NITROGEN 11.5 mg/dL (7-18); CALCIUM 8.1 mg/dL (8.5-10.1); CO2 25 mmol/L (21-32); GLUCOSE,RANDOM 370 mg/dL (74-106)
[2022-01-02 23:46] LABS: URINE AMPHETAMINES NEGATIVE (NEGATIVE)
[2022-01-02 23:48] LABS: CREATININE 1.7 mg/dL (0.55-1.3); SGOT/AST 26 U/L (15-37); SGPT/ALT 26 U/L (13-61)
[2022-01-02 23:49] LABS: BILIRUBIN,TOTAL 0.8 mg/dL (0.2-1)
[2022-01-02 23:50] LABS: ALK PHOS 113 U/L (45-117); TOT PROT 6.8 g/dl (6.4-8.2)
[2022-01-03 01:24] VITALS: BP 185/91; PULSE 92; RESP 20
[2022-01-03 01:33] VITALS: TEMP 98.3
== END 2022-01-03 02:43 | disposition home or self-care (01) ==
LOC: JER 21:11
DX: R41.0 Disorientation, unspecified (principal); E11.9 Type 2 diabetes mellitus without complications
CPT/HCPCS: 36415; 71045-TC-FY; 80053; 80307; 82010; 82140; 82803; 82962; 84484; 85025; 93005; 93010; 99285-25

== ENCOUNTER 2022-09-03 12:56 | Inpatient (IN) | payer OTHER ==
[2022-09-03 13:06] VITALS: BMI 39.4
[2022-09-03] MEDS ORDERED: LACTATED RINGERS SOLUTION 1000 ML INFUS.BAG IV ONE (13:48)
[2022-09-03] MEDS ORDERED: SODIUM CHLORIDE 0.9% 500 ML INFUS.BAG IV ONE (13:55)
[2022-09-03 13:59] LABS: VENOUS BASE EXCESS -4.1 mmol/L (-2-2); VENOUS O2 SATURATION 67.9 % (70-80); VENOUS PCO2 46.5 mmHg (38-52); VENOUS PH 7.301 (7.310-7.410)
[2022-09-03 14:00] LABS: BASO % 0.8 % (0-2.0); EOS % 1.3 % (0-4.5); HEMATOCRIT 37.1 % (35.4-49); LYMPH % 18.8 % (8-40); MCH 28.9 pg (25.7-33.7); MCHC 32.4 g/dl (32.0-35.9); MEAN CELL VOLUME 89.3 fl (80-96); MEAN PLT VOLUME 10.8 fl (7.5-11.1); NEUT % 69.1 % (42.8-82.8); RBC 4.15 M/mm3 (4.00-5.60); RDW 13.8 % (11.9-15.9); WHITE BLOOD COUNT 4.1 K/mm3 (4.0-10.0)
[2022-09-03 14:05] LABS: PLATELET COUNT 36 10^3/uL (134-434)
[2022-09-03 14:09] LABS: INR 1.25 (0.83-1.09); PROTHROMBIN TIME (PATIENT) 14.5 SEC (9.7-13.0)
[2022-09-03 14:11] LABS: ACTIVATED PTT 29.3 SECONDS (25.2-36.5)
[2022-09-03 14:24] LABS: CHLORIDE 99 mmol/L (98-107); POTASSIUM 4.1 mmol/L (3.5-5.1); SODIUM 130 mmol/L (136-145)
[2022-09-03 14:27] LABS: ANION GAP 7 MMOL/L (8-16); CALCIUM 8.8 mg/dL (8.5-10.1); CO2 24 mmol/L (21-32)
[2022-09-03 14:28] LABS: ALBUMIN 3.1 g/dl (3.4-5.0); MAGNESIUM 2.2 mg/dL (1.8-2.4)
[2022-09-03 14:31] LABS: CREATININE 2.4 mg/dL (0.55-1.3); SGOT/AST 34 U/L (15-37); SGPT/ALT 31 U/L (13-61)
[2022-09-03 14:32] LABS: BILIRUBIN,TOTAL 1.4 mg/dL (0.2-1); TOT PROT 7.7 g/dl (6.4-8.2)
[2022-09-03 14:33] LABS: ALK PHOS 194 U/L (45-117)
[2022-09-03 14:46] LABS: GLUCOSE,RANDOM 784 mg/dL (74-106)
[2022-09-03 15:22] LABS: PH,URINE 6.5 (5.0-8.0); URINE APPEARANCE CLEAR; URINE BILIRUBIN NEGATIVE (NEGATIVE); URINE COLOR YELLOW; URINE GLUCOSE (UA) 3+ (NEGATIVE); URINE KETONE NEGATIVE (NEGATIVE); URINE LEUK ESTERASE NEGATIVE (NEGATIVE); URINE NITRITE NEGATIVE (NEGATIVE); URINE PROTEIN NEGATIVE (NEGATIVE); URINE UROBILINOGEN 0.2 mg/dL (0.2-1.0)
[2022-09-03] MEDS ORDERED: INSULIN (NOVOLOG) ASPART 100 UNITS/ML 10ML VIAL ONE (18:55)
[2022-09-03] MEDS: SODIUM CHLORIDE 0.45%/POT 20 MEQ/1,000 ML INFUS.BAG IV SCH (18:55)
[2022-09-03] MEDS: INSULIN SLIDING SCALE (NOVOLOG) 1 VIAL SQ SCH ×2 (18:58→22:02)
[2022-09-03] MEDS: INSULIN (LEVEMIR) 100 UNITS/ML UNITS SQ SCH (22:00)
[2022-09-03] MEDS: RIFAXIMIN 550 MG TABLET PO SCH (22:00)
[2022-09-03] MEDS ORDERED: QUEtiapine FUMARATE 400 MG TABLET PO ONE (22:20)
[2022-09-03] MEDS ORDERED: QUEtiapine FUMARATE 200 MG TABLET PO ONE (23:30)
[2022-09-04] MEDS: INSULIN SLIDING SCALE (NOVOLOG) 1 VIAL SQ SCH ×5 (02:03→22:00)
[2022-09-04] MEDS: SODIUM CHLORIDE 0.45%/POT 20 MEQ/1,000 ML INFUS.BAG IV SCH ×4 (02:04→18:24)
[2022-09-04] MEDS: INSULIN (LEVEMIR) 100 UNITS/ML UNITS SQ SCH ×2 (06:23→21:57)
[2022-09-04 08:19] LABS: BASO % 0.2 % (0-2.0); EOS % 0.1 % (0-4.5); HEMATOCRIT 37.2 % (35.4-49); HEMOGLOBIN 12.3 GM/dL (11.7-16.9); LYMPH % 8.1 % (8-40); MONO % 4.1 % (3.8-10.2); NEUT % 87.5 % (42.8-82.8); PLATELET COUNT 37 10^3/uL (134-434); RBC 4.23 M/mm3 (4.00-5.60); RDW 14.1 % (11.9-15.9); WHITE BLOOD COUNT 6.2 K/mm3 (4.0-10.0)
[2022-09-04 08:41] LABS: POTASSIUM 4.5 mmol/L (3.5-5.1)
[2022-09-04 08:45] LABS: CALCIUM 8.9 mg/dL (8.5-10.1)
[2022-09-04 08:46] LABS: ALBUMIN 3.2 g/dl (3.4-5.0); BLOOD UREA NITROGEN 10.7 mg/dL (7-18)
[2022-09-04 08:49] LABS: CREATININE 1.7 mg/dL (0.55-1.3); PHOSPHOROUS 3.5 mg/dL (2.5-4.9)
[2022-09-04 08:50] LABS: BILIRUBIN,TOTAL 1.4 mg/dL (0.2-1); TOT PROT 7.6 g/dl (6.4-8.2)
[2022-09-04] MEDS ORDERED: INSULIN (NOVOLOG) ASPART 100 UNITS/ML 10ML VIAL ONE ×4 (10:10→14:21)
[2022-09-04] MEDS: PANTOPRAZOLE 40 MG TABLET PO SCH (10:23)
[2022-09-04] MEDS: THIAMINE HCL 100 MG TABLET (FP) PO SCH (10:24)
[2022-09-04] MEDS: FOLIC ACID 1 MG TABLET (FP) PO SCH (10:24)
[2022-09-04] MEDS: RIFAXIMIN 550 MG TABLET PO SCH ×2 (10:24→22:04)
[2022-09-04] MEDS ORDERED: INSULIN (LEVEMIR) 100 UNITS/ML UNITS SQ SCH (11:10)
[2022-09-05] MEDS: SODIUM CHLORIDE 0.45%/POT 20 MEQ/1,000 ML INFUS.BAG IV SCH ×3 (03:09→16:49)
[2022-09-05] MEDS: INSULIN (LEVEMIR) 100 UNITS/ML UNITS SQ SCH ×2 (06:28→21:04)
[2022-09-05] MEDS: INSULIN (NOVOLOG MIX 70/30) 100 UNITS/ML MDV SQ SCH ×2 (06:30→16:44)
[2022-09-05] MEDS: INSULIN SLIDING SCALE (NOVOLOG) 1 VIAL SQ SCH ×4 (06:31→21:05)
[2022-09-05] MEDS ORDERED: INSULIN (NOVOLOG MIX 70/30) 100 UNITS/ML MDV SQ SCH (07:00)
[2022-09-05] MEDS: FOLIC ACID 1 MG TABLET (FP) PO SCH (10:51)
[2022-09-05] MEDS: THIAMINE HCL 100 MG TABLET (FP) PO SCH (10:51)
[2022-09-05] MEDS: PANTOPRAZOLE 40 MG TABLET PO SCH (10:51)
[2022-09-05] MEDS: RIFAXIMIN 550 MG TABLET PO SCH ×2 (10:51→21:06)
[2022-09-05 11:36] LABS: HEPATITIS B SURFACE AG MATERN NON-REACTIVE (NONREACTIVE)
[2022-09-05] MEDS: LACTULOSE 20 GM/30 ML UDC (FOR ORAL USE ONLY) PO SCH ×2 (14:07→21:03)
[2022-09-05] MEDS ORDERED: INSULIN (NOVOLOG) ASPART 100 UNITS/ML 10ML VIAL ONE ×2 (16:23→16:59)
[2022-09-05] MEDS ORDERED: INSULIN (NOVOLOG MIX 70/30) 100 UNITS/ML MDV SQ ONE (16:59)
[2022-09-05] MEDS: CARVEDILOL 6.25 MG TABLET (FP) PO SCH (21:04)
[2022-09-06] MEDS: LACTULOSE 20 GM/30 ML UDC (FOR ORAL USE ONLY) PO SCH (06:00)
[2022-09-06] MEDS ORDERED: INSULIN (LEVEMIR) 100 UNITS/ML UNITS SQ SCH (07:00)
[2022-09-06] MEDS: INSULIN SLIDING SCALE (NOVOLOG) 1 VIAL SQ SCH ×2 (07:00→11:58)
[2022-09-06] MEDS ORDERED: INSULIN (NOVOLOG MIX 70/30) 100 UNITS/ML MDV SQ SCH (07:00)
[2022-09-06 08:21] LABS: HEMATOCRIT 35.7 % (35.4-49); HEMOGLOBIN 11.9 GM/dL (11.7-16.9); MCH 29.2 pg (25.7-33.7); MCHC 33.2 g/dl (32.0-35.9); MEAN CELL VOLUME 87.9 fl (80-96); PLATELET COUNT 43 10^3/uL (134-434); RBC 4.07 M/mm3 (4.00-5.60); RDW 13.5 % (11.9-15.9); WHITE BLOOD COUNT 5.7 K/mm3 (4.0-10.0)
[2022-09-06 08:24] LABS: POTASSIUM 4.2 mmol/L (3.5-5.1)
[2022-09-06 08:29] LABS: ALBUMIN 2.6 g/dl (3.4-5.0); BLOOD UREA NITROGEN 10.1 mg/dL (7-18); CALCIUM 8.5 mg/dL (8.5-10.1)
[2022-09-06 08:32] LABS: CREATININE 1.3 mg/dL (0.55-1.3)
[2022-09-06 08:33] LABS: BILIRUBIN,TOTAL 1.3 mg/dL (0.2-1); TOT PROT 6.8 g/dl (6.4-8.2)
[2022-09-06 11:25] VITALS: BP 149/90; PULSE 71; RESP 20; TEMP 97.9
[2022-09-06] MEDS: CARVEDILOL 6.25 MG TABLET (FP) PO SCH (11:35)
[2022-09-06] MEDS: PANTOPRAZOLE 40 MG TABLET PO SCH (11:36)
[2022-09-06] MEDS: FOLIC ACID 1 MG TABLET (FP) PO SCH (11:36)
[2022-09-06] MEDS: THIAMINE HCL 100 MG TABLET (FP) PO SCH (11:37)
[2022-09-06] MEDS: RIFAXIMIN 550 MG TABLET PO SCH (11:37)
[2022-09-06 17:07] LABS: GLIADIN ANTIBODY IGA 7 units (0-19); GLIADIN ANTIBODY IGG 3 units (0-19); TRANSGLUTAMINASE IGG 5 U/mL (0-5)
== END 2022-09-06 13:06 | disposition home or self-care (01) | DRG 420 ==
LOC: JER 12:56 → JERBED 15:00 → OBSVTOIN 16:39 → J7W 18:48
PROVIDERS: ADMIT Internal Medicine; ATTEND Internal Medicine
DX: E11.65 Type 2 diabetes mellitus with hyperglycemia (principal); N17.9 Acute kidney failure, unspecified; D69.6 Thrombocytopenia, unspecified; F20.9 Schizophrenia, unspecified; I13.0 Hypertensive heart and chronic kidney disease with heart failure and stage 1 through stage 4 chronic kidney disease, or unspecified chronic kidney disease; E66.01 Morbid (severe) obesity due to excess calories; Z68.41 Body mass index [BMI] 40.0-44.9, adult; E11.22 Type 2 diabetes mellitus with diabetic chronic kidney disease; N18.30 Chronic kidney disease, stage 3 unspecified; Z79.4 Long term (current) use of insulin; D64.9 Anemia, unspecified; K70.30 Alcoholic cirrhosis of liver without ascites; F10.10 Alcohol abuse, uncomplicated; N18.9 Chronic kidney disease, unspecified; I50.30 Unspecified diastolic (congestive) heart failure
CPT/HCPCS: 0241U-QW; 36415; 71045-TC-FY; 76700-TC; 80053; 81003; 82010; 82105; 82140; 82728; 82784; 82803; 82962; 83036; 83516; 83540; 83550; 83735; 84100; 84443; 85025; 85027; 85610; 85730; 86038; 86708; 86803; 87086; 87340; 87517; 93005; 93010; 99285-25; G0378; J3480

== ENCOUNTER 2024-10-21 05:29 | Day surgery (SDC) | payer OTHER ==
[2024-10-18 12:36] VITALS: BMI 45.6
[2024-10-21] MEDS ORDERED: GENTAMICIN SO4 80 MG/2 ML VIAL ONE (07:29)
[2024-10-21] MEDS ORDERED: VANCOMYCIN 1,000 MG VIAL (RESTRICTED TO ID ONLY) ONE (07:29)
[2024-10-21 08:36] VITALS: BP 133/78; PULSE 72; RESP 18; TEMP 97.5
[2024-10-21] MEDS ORDERED: oxyCODONE HCL 5 MG TABLET PO PRN ×2 (10:54)
[2024-10-21] MEDS ORDERED: ONDANSETRON 4 MG/2 ML VIAL IVPUSH PRN (10:54)
[2024-10-21] MEDS ORDERED: LACTATED RINGERS SOLUTION 1,000 ML IV SCH (11:00)
== END 2024-10-21 11:38 | disposition home or self-care (01) ==
LOC: JASU-SURG 05:29
PROVIDERS: ATTEND Urology
PROC: 3E033GC Introduction of Other Therapeutic Substance into Peripheral Vein, Percutaneous Approach (ICD-10-PCS; principal; 2024-10-21)
DX: Z53.8 Procedure and treatment not carried out for other reasons (principal)
CPT/HCPCS: 82010; 82962